=== PATIENT | male | born 1965 | race American Indian/Alaskan Native ===

== ENCOUNTER 2016-11-15 09:38 | Outpatient (CLI) | payer BC, OTHER ==
--- NOTE | 2016-11-15 11:54 | Magnetic Resonance Report ---
MRI LOWER EXTREMITY JOINT LEFT WITHOUT CONTRAST INDICATION: History of chronic left foot ulcer. COMPARISON: None similar. FINDINGS: Noncontrast multiplanar and multisequence MRI of the left foot demonstrates extensive abnormal signal throughout the fifth metatarsal as also at least the proximal phalanx of the fifth toe. Diffuse abnormal edema signal throughout the foot soft tissues also noted, greatest plantar. Dorsal foot soft tissue swelling/edema/fluid, most aggregated as on image 19, series 7 measuring approximately 3 cm. Mild abnormal edema signal in the first metatarsal head also noted. First MTP joint and few interphalangeal degenerative changes also suspected. Grossly intact included ankle. CONCLUSION: 1. Osteomyelitis involving the left fifth metatarsal, proximal phalanx of the fifth toe as also abnormal signal noted in the first metatarsal head, as detailed above. Please also correlate clinically with ulceration site. 2. Diffuse foot soft tissue swelling/edema with approximately 3 cm focal fluid/edema dorsally also seen, as described above. Thank you for the opportunity to participate in this patient's care.
== END 2016-11-15 09:39 | disposition home or self-care (01) ==
LOC: MRI 09:38
PROVIDERS: ATTEND Internal Medicine
DX: M86.9 Osteomyelitis, unspecified (principal); I10 Essential (primary) hypertension; E13.65 Other specified diabetes mellitus with hyperglycemia; Z86.31 Personal history of diabetic foot ulcer
CPT/HCPCS: 73721

== ENCOUNTER 2017-06-21 11:06 | Inpatient (IN) | payer OTHER, BC ==
[2017-06-21] MEDS ORDERED: ASPIRIN PO ONE (11:25)
[2017-06-21 11:59] LABS: Basophils % (Auto) 0.2 % (0.0-1.8); Hematocrit 40.5 % (35.5-45.6); Hemoglobin 13.6 gm/dl (11.8-15.2); Lymphocytes # (Auto) 0.7 K/mm3 (1.2-5.4); Lymphocytes % (Auto) 8.3 % (13.4-35.0); Mean Corpuscular HGB Conc 34 % (32-34); Mean Corpuscular Hemoglobin 30 pg (28-32); Mean Corpuscular Volume 89 fl (84-94); Monocytes # (Auto) 0.2 K/mm3 (0.0-0.8); Monocytes % (Auto) 1.7 % (0.0-7.3); Platelet Count 206 K/mm3 (140-440); Red Blood Count 4.57 M/mm3 (3.65-5.03); Red Cell Distribution Width 13.9 % (13.2-15.2)
[2017-06-21 12:18] LABS: BUN/Creatinine Ratio 15; Blood Urea Nitrogen 15 mg/dL (9-20); Calcium 9.3 mg/dL (8.4-10.2); Hemolysis Index 19
[2017-06-21] MEDS ORDERED: ZOFRAN IV ONE (12:19)
[2017-06-21] MEDS ORDERED: MORPHINE IV ONE (12:19)
[2017-06-21] MEDS ORDERED: NITRO-BID 2% TP ONE (12:19)
--- NOTE | 2017-06-21 12:25 | Emergency Department Report ---
HPI - General Chief Complaint: Chest Pain Time Seen by Provider: 06/21/17 12:11 - HPI HPI: Room 5 The patient is a 51-year-old male presenting with a chief complaint of chest pain. The patient states he awakened this morning at 03:00 with nausea and vomiting. The patient states at approximately 06:00 he began having intermittent substernal chest pain described as heaviness in addition to a constant midepigastric abdominal pain also described as a heaviness. Patient is to shortness of breath and diaphoresis with his chest pain. The patient currently gives his pain a score of 5/10. The patient states his last cardiac catheterization occurred 03/26/2016 Location: Chest Duration: [See above] Quality: Heaviness Severity: 5/10 Modifying factors: [see above] Context: [see above] Mode of transportation: [not driving] ED Past Medical Hx - Past Medical History Previous Medical History?: Yes Hx Hypertension: Yes Hx CVA: Yes Hx Heart Attack/AMI: Yes (2015) Hx Diabetes: Yes - Surgical History Past Surgical History?: Yes Hx Coronary Stent: Yes (26 March 2016) Additional Surgical History: tonsillectomy (long time ago) - Family History Family history: no significant - Social History Smoking Status: Never Smoker Substance Use Type: None - Medications Home Medications: Home Medications Medication Instructions Recorded Confirmed Last Taken Type Aspirin [Aspirin TAB] 325 mg PO QDAY #30 tablet 09/16/15 03/25/16 Unknown Rx Baclofen [Lioresal] 5 mg PO TID #45 tablet 09/16/15 03/25/16 Unknown Rx Clopidogrel [Plavix] 75 mg PO QDAY #30 tablet 09/16/15 03/25/16 Unknown Rx Glimepiride [Amaryl] 4 mg PO QDDIAB #30 tablet 09/16/15 03/25/16 Unknown Rx Insulin Glargine [Lantus VIAL] 20 units SUB-Q QHS 30 Days units 09/16/15 Unknown Rx Meclizine [Antivert] 25 mg PO Q8H #90 tablet 09/16/15 03/25/16 Unknown Rx Pantoprazole [Protonix TAB] 40 mg PO QDAY #30 tablet 09/16/15 03/25/16 Unknown Rx Simvastatin [Zocor TAB] 20 mg PO QHS #30 tablet 09/16/15 03/25/16 Unknown Rx amLODIPine [Norvasc] 10 mg PO QDAY #30 tablet 09/16/15 03/25/16 Unknown Rx Aspirin [Aspirin TAB] 325 mg PO QDAY #30 tablet 03/27/16 Unknown Rx Levofloxacin [Levaquin] 750 mg PO QDAY #3 tablet 03/27/16 Unknown Rx Lisinopril [Zestril TAB] 5 mg PO QDAY #30 tablet 03/27/16 Unknown Rx Metoprolol [Lopressor TAB] 25 mg PO BID #60 tablet 03/27/16 03/25/16 Unknown Rx chlorproMAZINE [Thorazine] 25 mg PO Q6H PRN #10 tablet 03/27/16 Unknown Rx ED Review of Systems ROS: Stated complaint: CHEST PAIN Other details as noted in HPI Constitutional: diaphoresis Respiratory: shortness of breath Cardiovascular: chest pain Gastrointestinal: abdominal pain, nausea, vomiting Physical Exam - Physical Exam Physical Exam: GENERAL: The patient is well-developed well-nourished male lying on stretcher appearing to be in mild discomfort. [] HEENT: Normocephalic. Atraumatic. Extraocular motions are intact. Patient has moist mucous membranes. NECK: Supple. Trachea midline CHEST/LUNGS: Clear to auscultation. There is no respiratory distress noted. HEART/CARDIOVASCULAR: Regular. There is no tachycardia. There is no gallop rub or murmur. ABDOMEN: Abdomen is soft. Patient has normal bowel sounds. There is no abdominal distention. SKIN: There is no rash. There is no edema. There is no diaphoresis. NEURO: The patient is awake, alert, and oriented. The patient is cooperative. The patient has residual left-sided weakness from previous CVA. The patient has normal speech MUSCULOSKELETAL: There is no evidence of acute injury. ED Medical Decision Making - Lab Data Result diagrams: 06/21/17 11:40 06/21/17 11:40 Laboratory Tests 06/21/17 06/21/17 11:40 11:40 WBC 8.6 RBC 4.57 Hgb 13.6 Hct 40.5 MCV 89 MCH 30 MCHC 34 RDW 13.9 Plt Count 206 Lymph % (Auto) 8.3 L [place] % (Auto) 1.7 Eos % (Auto) 0.0 Baso % (Auto) 0.2 Lymph # 0.7 L [place] # 0.2 Eos # 0.0 Baso # 0.0 Seg Neutrophils % 89.8 H Seg Neutrophils # 7.7 Sodium 136 L Potassium 4.4 Chloride 92.1 L Carbon Dioxide 22 Anion Gap 26 BUN 15 Creatinine 1.0 Estimated GFR > 60 BUN/Creatinine Ratio 15 Glucose 320 H Calcium 9.3 Troponin T 0.015 - EKG Data -: EKG Interpreted by Me EKG shows normal: sinus rhythm Rate: normal - EKG Data When compared to previous EKG there are: no significant change Interpretation: unchanged when compared t (07/27/2015) - Radiology Data Radiology results: image reviewed (chest x-ray) interpreted by me: Chest [id number] right lower lobe atelectasis. No pneumothorax - Differential Diagnosis ACS, GERD, pericarditis Critical care attestation.: If time is entered above; I have spent that time in minutes in the direct care of this critically ill patient, excluding procedure time. ED Disposition Clinical Impression: Chest pain Disposition: DC-09 OP ADMIT IP TO THIS HOSP Is pt being admited?: Yes Does the pt Need Aspirin: Yes Condition: Fair Instructions: Chest Pain (ED) Referrals: PRIMARY CARE, [Primary Care Provider] - 3-5 Days Time of Disposition: 12:50 (hospitalist paged)
--- NOTE | 2017-06-21 13:40 | XRay Report ---
AP CHEST: HISTORY: chest pain Mild cardiomegaly and trace left pleural effusion are suspected. The lungs are clear otherwise. No consolidation or pneumothorax. Normal bony structures. IMPRESSION: Mild cardiomegaly and trace left pleural effusion.
[2017-06-21] MEDS ORDERED: ZOFRAN IV PRN (14:01)
[2017-06-21] MEDS ORDERED: PROVENTIL IH PRN (14:01)
[2017-06-21] MEDS ORDERED: DULCOLAX PR PRN (14:01)
[2017-06-21] MEDS ORDERED: MORPHINE IV PRN (14:01)
[2017-06-21] MEDS ORDERED: MILK OF MAGNESIA PO PRN (14:01)
[2017-06-21] MEDS ORDERED: TYLENOL PO PRN (14:01)
[2017-06-21] MEDS ORDERED: SODIUM CHLORIDE FLUSH SYRINGE 10 ML IV PRN (14:01)
[2017-06-21 14:35] LABS: Basophils % (Auto) 0.3 % (0.0-1.8); Hemoglobin 13.4 gm/dl (11.8-15.2); Lymphocytes # (Auto) 0.6 K/mm3 (1.2-5.4); Lymphocytes % (Auto) 7.8 % (13.4-35.0); Mean Corpuscular HGB Conc 34 % (32-34); Mean Corpuscular Hemoglobin 30 pg (28-32); Mean Corpuscular Volume 88 fl (84-94); Monocytes # (Auto) 0.2 K/mm3 (0.0-0.8); Platelet Count 191 K/mm3 (140-440); Red Blood Count 4.45 M/mm3 (3.65-5.03); Red Cell Distribution Width 13.3 % (13.2-15.2)
[2017-06-21] MEDS ORDERED: ASPIRIN PR ONE (15:00)
[2017-06-21 15:30] LABS: BUN/Creatinine Ratio 15; Blood Urea Nitrogen 15 mg/dL (9-20); Calcium 9.1 mg/dL (8.4-10.2); Hemolysis Index 0
--- NOTE | 2017-06-21 17:25 | History and Physical Report ---
History of Present Illness Date of admission: 06/21/17 14:01 Chief complaint: My chest hurts History of present illness: 51 YO Male with HTN, CVA, LA, DM, Metabolic Syndrome, presents to ED for evaluation. Pt states that he has experienced an acute onset of pain in his chest that awakened him from his sleep at 0300 Hrs. Pt states that pain was 5/10, crushing, nonradiating, substernal, not worsened with exertion, or relieved with rest. Pain is associated with diaphoresis, shortness of breath, as well as with nausea and vomiting. No reports of fever, chills, Palpitations, syncope, hemoptysis, prolonged immobility/travel, calf pain, individual/family history of DVT/PE, productive cough, or recent ill contacts. Pt seen and evaluated in ED and found to have symptoms of ACS. Cardiology consulted, pt admitted to telemetry. Past History Past Medical History: acute LA, CAD, diabetes, hypertension, other (obesity, metabolic syndrome) Past Surgical History: tonsillectomy, Other (stent placement) Social history: , lives with family. denies: smoking, alcohol abuse, prescription drug abuse Family history: hypertension Medications and Allergies Allergies Allergy/AdvReac Type Severity Reaction Status Date / Time vitamin K2 Allergy Intermediate Swelling Verified 03/21/16 18:50 shellfish derived Allergy Shortness Verified 08/19/15 22:46 of Breath Home Medications Medication Instructions Recorded Confirmed Last Taken Type Baclofen [Lioresal] 5 mg PO TID #45 tablet 09/16/15 06/21/17 06/21/17 Rx Clopidogrel [Plavix] 75 mg PO QDAY #30 tablet 09/16/15 06/21/17 06/21/17 Rx Glimepiride [Amaryl] 4 mg PO QDDIAB #30 tablet 09/16/15 06/21/17 06/21/17 Rx amLODIPine [Norvasc] 10 mg PO QDAY #30 tablet 09/16/15 06/21/17 06/21/17 Rx Aspirin [Aspirin TAB] 325 mg PO QDAY #30 tablet 03/27/16 06/21/17 06/21/17 Rx Metoprolol [Lopressor TAB] 25 mg PO BID #60 tablet 03/27/16 06/21/17 06/21/17 Rx Insulin Glargine [Lantus VIAL] 25 units SUB-Q QHS 06/21/17 06/21/17 06/20/17 History Valsartan/Hydrochlorothiazide 1 each PO DAILY 06/21/17 06/21/17 06/21/17 History [Valsartan-Hctz 160-12.5 mg Tab] cloNIDine [Catapres] 0.1 mg PO TID 06/21/17 06/21/17 06/21/17 History Active Meds: Active Medications Acetaminophen (Tylenol) 650 mg PO Q4H PRN PRN Reason: Pain MILD(1-3)/Fever >100.5/VACA Albuterol (Proventil) 2.5 mg IH Q4HRT PRN PRN Reason: Shortness Of Breath Amlodipine Besylate (Norvasc) 10 mg PO QDAY [facility] Aspirin (Aspirin) 325 mg PO QDAY [facility] Baclofen (Lioresal) 5 mg PO TID [facility] Bisacodyl (Dulcolax) 10 mg [place] QDAY PRN PRN Reason: Constipation unrelieved by [facility] Clonidine HCl (Catapres) 0.1 mg PO TID [facility] Clopidogrel Bisulfate (Plavix) 75 mg PO QDAY [facility] Famotidine (Pepcid) 10 mg PO BID [facility] Hydrochlorothiazide (Hctz) 12.5 mg PO QDAY [facility] Magnesium Hydroxide (Milk Of Magnesia) 30 ml PO Q4H PRN PRN Reason: Constipation Metoprolol Tartrate (Lopressor) 25 mg PO BID [facility] Morphine Sulfate (Morphine) 2 mg IV Q4H PRN PRN Reason: Pain, Moderate (4-6) Ondansetron HCl (Zofran) 4 mg IV Q8H PRN PRN Reason: N/V unrelieved by Reglan Sodium Chloride (Sodium Chloride Flush Syringe 10 Ml) 10 ml IV PRN PRN PRN Reason: LINE FLUSH Valsartan (Diovan) 160 mg PO QDAY [facility] Review of Systems Constitutional: no weight loss, no weight gain, no fever, no chills Ears, nose, mouth and throat: no ear pain, no ear discharge, no tinnitis, no decreased hearing, no nose pain Cardiovascular: chest pain, shortness of breath, no orthopnea, no palpitations, no rapid/irregular heart beat, no syncope Respiratory: shortness of breath, no cough, no cough with sputum, no excessive sputum, no hemoptysis Gastrointestinal: no nausea, no vomiting Genitourinary Male: no hematuria, no flank pain, no discharge, no urinary frequency, no urinary hesitancy, no nocturia Rectal: no pain, no incontinence, no bleeding Musculoskeletal: no neck stiffness, no neck pain, no shooting arm pain, no arm numbness/tingling, no low back pain, no shooting leg pain, no leg numbness/ tingling Integumentary: no rash, no redness, no sores, no wounds, no jaundice, no boils, no growths, no bullae, no lesions Neurological: no transient paralysis, no paralysis, no weakness, no parathesias , no numbness, no tingling, no seizures, no syncope, no headaches, no migraines , no tic, no convulsions Psychiatric: no anxiety, no memory loss, no change in sleep habits, no sleep disturbances, no insomnia, no hypersomnia, no change in appetite, no change in libido, no suicidal ideation Endocrine: no cold intolerance, no heat intolerance, no polyphagia, no excessive thirst, no polydipsia, no polyuria, no nocturia, no excessive sweating Hematologic/Lymphatic: no easy bruising, no easy bleeding, no lymphadenopathy, no lymphedema Allergic/Immunologic: no urticaria, no allergic rhinitis, no wheezing, no persistent infections, no anaphylaxis Exam - Constitutional Vitals: Temp Pulse Resp BP Pulse Ox 98.8 F 80 18 119/76 100 06/21/17 12:38 06/21/17 14:59 06/21/17 14:59 06/21/17 14:59 06/21/17 14:59 General appearance: Present: mild distress, obese - EENT Eyes: Present: PERRL ENT: hearing intact, clear oral mucosa - Neck Neck: Present: supple, normal ROM - Respiratory Respiratory effort: normal Respiratory: bilateral: CTA - Cardiovascular Heart Sounds: Present: S1 & S2. Absent: rub, click - Extremities Extremities: pulses symmetrical, No edema - Abdominal General gastrointestinal: Present: soft, non-tender, non-distended, normal bowel sounds Male genitourinary: Present: normal - Integumentary Integumentary: Present: clear, warm, dry - Musculoskeletal Musculoskeletal: gait normal, strength equal bilaterally - Psychiatric Psychiatric: appropriate mood/affect, intact judgment & insight - Neurologic Neurologic: CNII-XII intact, moves all extremities Results - Labs CBC & Chem 7: 06/21/17 14:16 06/21/17 14:16 Labs: Abnormal lab results 06/21/17 06/21/17 06/21/17 Range/Units 11:40 11:40 14:16 Lymph % (Auto) 8.3 L 7.8 L (13.4-35.0) % Lymph # 0.7 L 0.6 L (1.2-5.4) K/mm3 Seg Neutrophils % 89.8 H 89.9 H (40.0-70.0) % D-Dimer (0-234) ng/mlDDU Sodium 136 L (137-145) mmol/L Chloride 92.1 L (98-107) mmol/L Glucose 320 H (75-100) mg/dL 06/21/17 06/21/17 Range/Units 14:16 14:16 Lymph % (Auto) (13.4-35.0) % Lymph # (1.2-5.4) K/mm3 Seg Neutrophils % (40.0-70.0) % D-Dimer 320.54 H (0-234) ng/mlDDU Sodium 135 L (137-145) mmol/L Chloride 94.5 L (98-107) mmol/L Glucose 326 H (75-100) mg/dL Assessment and Plan - Patient Problems (1) ACS (acute coronary syndrome) Current Visit: Yes Status: Acute Plan to address problem: Admit to telemetry, serial cardiac enzymes, ekg, d dimer, echo, stress test, cardiology consulted, morphine, supplemental oxygen, nitro, aspirin, (2) Metabolic syndrome Current Visit: Yes Status: Acute Plan to address problem: low cholesterol diet, lipid panel, (3) Diabetes mellitus with hyperglycemia Current Visit: No Status: Chronic Qualifiers: Diabetes mellitus type: type 1 Qualified Code(s): E10.65 - Type 1 diabetes mellitus with hyperglycemia Plan to address problem: ADA diet, insulin, accu check (4) Hypertension Current Visit: No Status: Chronic Qualifiers: Hypertension type: essential hypertension Qualified Code(s): I10 - Essential (primary) hypertension Plan to address problem: Monitor bp q shift, IV hydralazine prn, continue medical management. (5) DVT prophylaxis Current Visit: Yes Status: Acute
[2017-06-21] MEDS: LIORESAL PO SCH (20:55)
[2017-06-21] MEDS: CATAPRES PO SCH (21:05)
--- NOTE | 2017-06-21 21:23 | Cat Scan Report ---
FINAL REPORT PROCEDURE: CT ANGIO CHEST TECHNIQUE: Computerized tomographic angiography of the chest was performed after the IV injection of iodinated nonionic contrast including image processing. The image data was postprocessed using 2-dimensional multiplanar reformatted (MPR) and 3-dimensional (MIP and/or volume rendered) techniques. HISTORY: dypsnea COMPARISON: No prior studies are available for comparison. FINDINGS: Heart and pericardium: Normal. Thoracic aorta: More by weak grade dissection protocol technique study. No obvious dissection seen. Pulmonary vasculature: Weak opacification of the pulmonary arteries with attenuation value of 105 HU compared to aorta at 151 HU. No definitive evidence of large central saddle embolus. No definite evidence of main pulmonary artery emboli. There is attenuation of the pulmonary arteries distal to the main pulmonary arteries bilaterally rendering inconclusive to exclude or incapable to preclude small to medium sized PE in those areas. Lymph nodes: Scattered mildly prominent lymph nodes. Lungs: Motion artifact. Patchy atelectasis. Pleural space: No effusion, thickening, or pneumothorax. Musculoskeletal structures: No significant abnormality. Upper abdominal structures: No significant abnormality. IMPRESSION: No large or central PE on limited study. Poor IV contrast bolus intensity timing in the pulmonary arteries. Details above. Followup V/Q scan or improved PE technique study advised as warranted. Minimal atelectasis.
[2017-06-21] MEDS: LOPRESSOR PO SCH (22:52)
[2017-06-21] MEDS: PEPCID PO SCH (22:53)
[2017-06-22] MEDS: LIORESAL PO SCH ×2 (08:00→14:07)
[2017-06-22] MEDS: CATAPRES PO SCH ×2 (08:00→14:08)
[2017-06-22] MEDS ORDERED: D50W (25GM) Syringe IV PRN (08:44)
[2017-06-22] MEDS: NOVOLOG SUB-Q SCH ×2 (09:15→13:21)
[2017-06-22] MEDS ORDERED: LEXISCAN IV ONE ×3 (09:36→10:10)
[2017-06-22] MEDS ORDERED: NORVASC PO SCH (10:00)
[2017-06-22] MEDS ORDERED: HCTZ PO SCH (10:00)
[2017-06-22] MEDS ORDERED: DIOVAN PO SCH (10:00)
[2017-06-22] MEDS ORDERED: PLAVIX PO SCH (10:00)
[2017-06-22] MEDS ORDERED: ASPIRIN PO SCH (10:00)
[2017-06-22] MEDS ORDERED: NON-FORMULARY (Valsartan/Hydrochlorothiazide [Valsartan-Hctz 160-12.5 Mg Tab] 1 EACH) PO SCH (10:00)
--- NOTE | 2017-06-22 11:41 | Consultation ---
History of Present Illness Consult date: 06/22/17 Consult reason: chest pain History of present illness: 51 year old male with the past medical history of coronary artery disease presenting with intractable nausea, vomiting and secondary retrosternal chest and epigastric pain. Patient was completely asymptomatic before he started experiencing retching and intractable vomiting. It is only after multiple episodes of emesis that he started feeling the chest pain. ECG is showing no interval changes and troponin x 2 are negative. Past History Past Medical History: acute MN, CAD, diabetes, hypertension, other (obesity, metabolic syndrome) Past Surgical History: tonsillectomy, Other (stent placement) Social history: , lives with family. denies: smoking, alcohol abuse, prescription drug abuse Family history: hypertension Medications and Allergies Allergies Allergy/AdvReac Type Severity Reaction Status Date / Time vitamin K2 Allergy Intermediate Swelling Verified 03/21/16 18:50 shellfish derived Allergy Shortness Verified 08/19/15 22:46 of Breath Home Medications Medication Instructions Recorded Confirmed Last Taken Type Baclofen [Lioresal] 5 mg PO TID #45 tablet 09/16/15 06/21/17 06/21/17 Rx Clopidogrel [Plavix] 75 mg PO QDAY #30 tablet 09/16/15 06/21/17 06/21/17 Rx Glimepiride [Amaryl] 4 mg PO QDDIAB #30 tablet 09/16/15 06/21/17 06/21/17 Rx amLODIPine [Norvasc] 10 mg PO QDAY #30 tablet 09/16/15 06/21/17 06/21/17 Rx Aspirin [Aspirin TAB] 325 mg PO QDAY #30 tablet 03/27/16 06/21/17 06/21/17 Rx Metoprolol [Lopressor TAB] 25 mg PO BID #60 tablet 03/27/16 06/21/17 06/21/17 Rx Insulin Glargine [Lantus VIAL] 25 units SUB-Q QHS 06/21/17 06/21/17 06/20/17 History Valsartan/Hydrochlorothiazide 1 each PO DAILY 06/21/17 06/21/17 06/21/17 History [Valsartan-Hctz 160-12.5 mg Tab] cloNIDine [Catapres] 0.1 mg PO TID 06/21/17 06/21/17 06/21/17 History Active Meds: Active Medications Acetaminophen (Tylenol) 650 mg PO Q4H PRN PRN Reason: Pain MILD(1-3)/Fever >100.5/VACA Albuterol (Proventil) 2.5 mg IH Q4HRT PRN PRN Reason: Shortness Of Breath Amlodipine Besylate (Norvasc) 10 mg PO QDAY [facility] Aspirin (Aspirin) 325 mg PO QDAY [facility] Baclofen (Lioresal) 5 mg PO TID [facility] Last Admin: 06/21/17 20:55 Dose: 5 mg Bisacodyl (Dulcolax) 10 mg CA QDAY PRN PRN Reason: Constipation unrelieved by MOM Clonidine HCl (Catapres) 0.1 mg PO TID [facility] Last Admin: 06/21/17 21:05 Dose: Not Given Clopidogrel Bisulfate (Plavix) 75 mg PO QDAY [facility] Dextrose (D50w (25gm) Syringe) 50 ml IV PRN PRN PRN Reason: Hypoglycemia Famotidine (Pepcid) 10 mg PO BID [facility] Last Admin: 06/21/17 22:53 Dose: 10 mg Hydrochlorothiazide (Hctz) 12.5 mg PO QDAY [facility] Insulin Aspart (Novolog) 0 units SUB-Q Q6HR [facility]; Protocol Last Admin: 06/22/17 09:15 Dose: 2 units Magnesium Hydroxide (Milk Of Magnesia) 30 ml PO Q4H PRN PRN Reason: Constipation Metoprolol Tartrate (Lopressor) 25 mg PO BID [facility] Last Admin: 06/21/17 22:52 Dose: Not Given Morphine Sulfate (Morphine) 2 mg IV Q4H PRN PRN Reason: Pain, Moderate (4-6) Ondansetron HCl (Zofran) 4 mg IV Q8H PRN PRN Reason: N/V unrelieved by Reglan Sodium Chloride (Sodium Chloride Flush Syringe 10 Ml) 10 ml IV PRN PRN PRN Reason: LINE FLUSH Valsartan (Diovan) 160 mg PO QDAY [facility] Review of Systems All systems: negative Physical Examination Vital Signs Temp Pulse Resp BP Pulse Ox 98.8 F 98 H 18 148/76 100 06/21/17 12:38 06/21/17 12:38 06/21/17 12:38 06/21/17 12:38 02/27/18 12:38 General appearance: no acute distress HEENT: Positive: PERRL Neck: Positive: neck supple Cardiac: Positive: Reg Rate and Rhythm Lungs: Positive: Normal Exam Neuro: Positive: Grossly Intact Abdomen: Positive: Soft Results 06/21/17 14:16 06/21/17 14:16 Cardiac Enzymes 06/21/17 06/21/17 06/21/17 Range/Units 11:40 11:40 14:16 WBC 8.6 7.6 (4.5-11.0) K/mm3 RBC 4.57 4.45 (3.65-5.03) M/mm3 Hgb 13.6 13.4 (11.8-15.2) gm/dl Hct 40.5 39.0 (35.5-45.6) % MCV 89 88 (84-94) fl MCH 30 30 (28-32) pg MCHC 34 34 (32-34) % RDW 13.9 13.3 (13.2-15.2) % Plt Count 206 191 (140-440) K/mm3 Lymph % (Auto) 8.3 L 7.8 L (13.4-35.0) % Carlton % (Auto) 1.7 2.0 (0.0-7.3) % Eos % (Auto) 0.0 0.0 (0.0-4.3) % Baso % (Auto) 0.2 0.3 (0.0-1.8) % Lymph # 0.7 L 0.6 L (1.2-5.4) K/mm3 Carlton # 0.2 0.2 (0.0-0.8) K/mm3 Eos # 0.0 0.0 (0.0-0.4) K/mm3 Baso # 0.0 0.0 (0.0-0.1) K/mm3 Seg Neutrophils % 89.8 H 89.9 H (40.0-70.0) % Seg Neutrophils # 7.7 6.8 (1.8-7.7) K/mm3 D-Dimer (0-234) ng/mlDDU Sodium 136 L (137-145) mmol/L Potassium 4.4 (3.6-5.0) mmol/L Chloride 92.1 L (98-107) mmol/L Carbon Dioxide 22 (22-30) mmol/L Anion Gap 26 mmol/L BUN 15 (9-20) mg/dL Creatinine 1.0 (0.8-1.5) mg/dL Estimated GFR > 60 ml/min BUN/Creatinine Ratio 15 % Glucose 320 H (75-100) mg/dL POC Glucose (70-105) Calcium 9.3 (8.4-10.2) mg/dL Troponin T 0.015 (0.00-0.029) ng/mL 06/21/17 06/21/17 06/21/17 Range/Units 14:16 14:16 19:52 WBC (4.5-11.0) K/mm3 RBC (3.65-5.03) M/mm3 Hgb (11.8-15.2) gm/dl Hct (35.5-45.6) % MCV (84-94) fl MCH (28-32) pg MCHC (32-34) % RDW (13.2-15.2) % Plt Count (140-440) K/mm3 Lymph % (Auto) (13.4-35.0) % Carlton % (Auto) (0.0-7.3) % Eos % (Auto) (0.0-4.3) % Baso % (Auto) (0.0-1.8) % Lymph # (1.2-5.4) K/mm3 Carlton # (0.0-0.8) K/mm3 Eos # (0.0-0.4) K/mm3 Baso # (0.0-0.1) K/mm3 Seg Neutrophils % (40.0-70.0) % Seg Neutrophils # (1.8-7.7) K/mm3 D-Dimer 320.54 H (0-234) ng/mlDDU Sodium 135 L (137-145) mmol/L Potassium 4.6 (3.6-5.0) mmol/L Chloride 94.5 L (98-107) mmol/L Carbon Dioxide 26 (22-30) mmol/L Anion Gap 19 mmol/L BUN 15 (9-20) mg/dL Creatinine 1.0 (0.8-1.5) mg/dL Estimated GFR > 60 ml/min BUN/Creatinine Ratio 15 % Glucose 326 H (75-100) mg/dL POC Glucose (70-105) Calcium 9.1 (8.4-10.2) mg/dL Troponin T 0.023 (0.00-0.029) ng/mL 06/22/17 Range/Units 07:25 WBC (4.5-11.0) K/mm3 RBC (3.65-5.03) M/mm3 Hgb (11.8-15.2) gm/dl Hct (35.5-45.6) % MCV (84-94) fl MCH (28-32) pg MCHC (32-34) % RDW (13.2-15.2) % Plt Count (140-440) K/mm3 Lymph % (Auto) (13.4-35.0) % Carlton % (Auto) (0.0-7.3) % Eos % (Auto) (0.0-4.3) % Baso % (Auto) (0.0-1.8) % Lymph # (1.2-5.4) K/mm3 Carlton # (0.0-0.8) K/mm3 Eos # (0.0-0.4) K/mm3 Baso # (0.0-0.1) K/mm3 Seg Neutrophils % (40.0-70.0) % Seg Neutrophils # (1.8-7.7) K/mm3 D-Dimer (0-234) ng/mlDDU Sodium (137-145) mmol/L Potassium (3.6-5.0) mmol/L Chloride (98-107) mmol/L Carbon Dioxide (22-30) mmol/L Anion Gap mmol/L BUN (9-20) mg/dL Creatinine (0.8-1.5) mg/dL Estimated GFR ml/min BUN/Creatinine Ratio % Glucose (75-100) mg/dL POC Glucose 228 H (70-105) Calcium (8.4-10.2) mg/dL Troponin T (0.00-0.029) ng/mL CBC 06/21/17 06/21/17 Range/Units 11:40 14:16 WBC 8.6 7.6 (4.5-11.0) K/mm3 RBC 4.57 4.45 (3.65-5.03) M/mm3 Hgb 13.6 13.4 (11.8-15.2) gm/dl Hct 40.5 39.0 (35.5-45.6) % Plt Count 206 191 (140-440) K/mm3 Lymph # 0.7 L 0.6 L (1.2-5.4) K/mm3 Carlton # 0.2 0.2 (0.0-0.8) K/mm3 Eos # 0.0 0.0 (0.0-0.4) K/mm3 Baso # 0.0 0.0 (0.0-0.1) K/mm3 Comprehensive Metabolic Panel 06/21/17 06/21/17 Range/Units 11:40 14:16 Sodium 136 L 135 L (137-145) mmol/L Potassium 4.4 4.6 (3.6-5.0) mmol/L Chloride 92.1 L 94.5 L (98-107) mmol/L Carbon Dioxide 22 26 (22-30) mmol/L BUN 15 15 (9-20) mg/dL Creatinine 1.0 1.0 (0.8-1.5) mg/dL Glucose 320 H 326 H (75-100) mg/dL Calcium 9.3 9.1 (8.4-10.2) mg/dL - EKG Interpretation EKG: sinus rhythm EKG interpretations - Telemetry EKG Rhythm: Sinus Rhythm Assessment and Plan Atypical chest pain after intractable nausea and vomiting No ECG changes when compared to previous Negative troponin x 2 Small reversible apical and mid anteroseptal andsmall reversible basal inferolateral wall defects, as well as, a small fixed apical inferior defect on MPI CAD s/p PCI to proximal LAD and mid RCA 03/2016 on asa and plavix Post PCI, patient did have residual borderline stenosis in the mid LAD along with small diseased diagonal arteries; as well as small PDA and PLVB Ischemic cardiomyopathy, LVEF 40% by MPI History of CVA Systemic Hypertension Type II DM Recommendations: Given the atypical presentation of his chest pain, we do not anticipate further invasive cardiac work-up. Continue current management with DAPT, BB, ACEi Follow-up with referring port captain Work-up for intractable nausea and vomiting per primary team
[2017-06-22 13:06] VITALS: BP 164/91
[2017-06-22] MEDS: PEPCID PO SCH (13:17)
[2017-06-22] MEDS: LOPRESSOR PO SCH (13:20)
--- NOTE | 2017-06-22 16:36 | Discharge Summary ---
Providers - Providers Date of Admission: 06/21/17 14:01 Date of discharge: 06/22/17 Attending physician: YVON NICOLAS 06/21/17 Consult to Cardiac Rehabilitation [CONS] Routine Reason For Exam: Phase I 06/21/17 14:01 Consult to Cardiology [CONS] Routine Consulting Provider: ELIU JULIEN Reason For Exam: acs Primary care physician: LIFE SUPPORT TECHNICIAN Hospitalization Condition: Stable Hospital course: Patient is 51 yo man with history of CAD s/p 2 stents, IDDM on Lantus 25units at bedtime, hypertension, white coat syndrome, CVA with left side hemiparesis and left foot dm foot ulcer with cast in place who presented with intractable n/ v followed by chest pains. He underwent stress test. ECHO with est EF 45%-50%, abn diastolic filling and CTA chest negative for PE. He ate beans from the can which lead to the gastritis and now it has resolved as well as the chest pains. -Chest pains, atypical most likely acute gastritis -Accelerated hypertension from White coat syndrome: restarted home medications -IDDM -Intractable nausea and vomiting resolved. per Cardiology, Dr. Espinal: "Atypical chest pain after intractable nausea and vomiting No ECG changes when compared to previous Negative troponin x 2 Small reversible apical and mid anteroseptal andsmall reversible basal inferolateral wall defects, as well as, a small fixed apical inferior defect on MPI CAD s/p PCI to proximal LAD and mid RCA 03/2016 on asa and plavix Post PCI, patient did have residual borderline stenosis in the mid LAD along with small diseased diagonal arteries; as well as small PDA and PLVB Ischemic cardiomyopathy, LVEF 40% by MPI History of CVA Systemic Hypertension Type II DM Recommendations: Given the atypical presentation of his chest pain, we do not anticipate further invasive cardiac work-up. Continue current management with DAPT, BB, ACEi Follow-up with referring gas distribution supervisor Work-up for intractable nausea and vomiting per primary team" Disposition: DC- TO HOME OR SELFCARE Time spent for discharge: 35 minutes Core Measure Documentation - Palliative Care Palliative Care/ Comfort Measures: Not Applicable - Core Measures Any of the following diagnoses?: none - VTE Discharge Requirements Deep Vein Thrombosis/Pulmonary Embolism Present on Admission: No Has pt received <5 days of overlap therapy or INR<2.0: No Anticoagulant overlap therapy prescribed at discharge: No Contraindication No Overlap Therapy order at DC: Not Indicated Exam - Constitutional Vitals: Temp Pulse Resp BP Pulse Ox 98.7 F 99 H 20 164/91 98 06/22/17 13:04 06/22/17 14:08 06/22/17 13:04 06/22/17 14:08 06/22/17 13:04 General appearance: Present: no acute distress - EENT Eyes: Present: PERRL, EOM intact ENT: hearing intact, clear oral mucosa, dentition normal - Neck Neck: Present: supple, normal ROM - Respiratory Respiratory: bilateral: CTA - Cardiovascular Rhythm: regular Heart Sounds: Present: S1 & S2 - Extremities Extremities: no ischemia, pulses intact Peripheral Pulses: within normal limits - Abdominal General gastrointestinal: Present: soft, non-tender, non-distended, normal bowel sounds - Musculoskeletal Musculoskeletal: left sided weakness - Psychiatric Psychiatric: appropriate mood/affect, intact judgment & insight, memory intact, cooperative - Neurologic Neurologic: CNII-XII intact, focal deficits (atrophic left arm) Plan Activity: fall precautions Diet: low salt, diabetic Follow up with: PRIMARY CARE, [Primary Care Provider] - 3-5 Days
--- NOTE | 2017-06-23 04:47 | Treadmill Report ---
INDICATION: Chest pain. ORDERING PHYSICIAN: Dr. Alvarez. FINDINGS: There was evidence of motion detected on the stress imaging scan. Motion correction was applied. There is evidence of a small mildly reversible apical and mid anteroseptal wall defect. There is also evidence of a small mildly reversible basal inferolateral wall defect. There is evidence of a small fixed apical inferior wall defect. There is moderate global left ventricular hypokinesis with an ejection fraction measured at 40%. IMPRESSION: 1. Small reversible apical and mid anteroseptal and basal inferolateral wall defect. 2. Fixed apical inferior wall defect. 3. Global left ventricular hypokinesis with an ejection fraction measured at 40%. 4. This is an intermediate risk myocardial perfusion scan associated with an adverse cardiovascular events of 1-3% in the next 1 year. 5. Clinical correlation is recommended. JOB# [id number] MARYURI/JONH
== END 2017-06-22 17:49 | disposition home or self-care (01) | DRG 392 ==
LOC: ED 11:06 → 4A 14:01
PROVIDERS: ADMIT Internal Medicine; ATTEND Internal Medicine
DX: K29.00 Acute gastritis without bleeding (principal); I24.9 Acute ischemic heart disease, unspecified; I69.954 Hemiplegia and hemiparesis following unspecified cerebrovascular disease affecting left non-dominant side; I25.2 Old myocardial infarction; E11.65 Type 2 diabetes mellitus with hyperglycemia; E66.9 Obesity, unspecified; I25.10 Atherosclerotic heart disease of native coronary artery without angina pectoris; I25.5 Ischemic cardiomyopathy; I10 Essential (primary) hypertension; E88.81 Metabolic syndrome and other insulin resistance; Z82.49 Family history of ischemic heart disease and other diseases of the circulatory system; Z88.8 Allergy status to other drugs, medicaments and biological substances; Z91.013 Allergy to seafood; Z68.36 Body mass index [BMI] 36.0-36.9, adult; Z79.4 Long term (current) use of insulin
CPT/HCPCS: 36415; 71045; 71275; 78452; 80048; 82962; 84484; 85025; 85379; 93005; 93010; 93017; 93306; A9502; J2270; J2405; J2785; Q9967

== ENCOUNTER 2018-01-12 20:52 | Emergency (ER) | payer BC, OTHER ==
[2018-01-12 21:38] LABS: Basophils # (Auto) 0.1 K/mm3 (0.0-0.1); Basophils % (Auto) 0.8 % (0.0-1.8); Eosinophils % (Auto) 0.2 % (0.0-4.3); Hematocrit 41.8 % (35.5-45.6); Hemoglobin 14.3 gm/dl (11.8-15.2); Lymphocytes # (Auto) 1.3 K/mm3 (1.2-5.4); Lymphocytes % (Auto) 13.1 % (13.4-35.0); Mean Corpuscular HGB Conc 34 % (32-34); Mean Corpuscular Hemoglobin 31 pg (28-32); Mean Corpuscular Volume 89 fl (84-94); Monocytes # (Auto) 0.5 K/mm3 (0.0-0.8); Monocytes % (Auto) 4.8 % (0.0-7.3); Platelet Count 221 K/mm3 (140-440); Red Cell Distribution Width 13.6 % (13.2-15.2)
[2018-01-12 22:06] LABS: Albumin 3.8 g/dL (3.9-5); Calcium 9.4 mg/dL (8.4-10.2)
[2018-01-12 22:41] LABS: Bilirubin,Urine NEG (Negative); Blood,Urine MOD (Negative); Color,Urine Yellow (Yellow); Mucus,Urine FEW /HPF; Urobilinogen,Urine < 2.0 mg/dL (<2.0); WBC,Urine < 1.0 /HPF (0.0-6.0)
[2018-01-13] MEDS ORDERED: HumuLIN R IV ONE (01:07)
[2018-01-13] MEDS ORDERED: NACL 0.9% 500 ML 500 ML IV ONE (01:07)
[2018-01-13] MEDS ORDERED: REGLAN IV ONE (01:07)
--- NOTE | 2018-01-13 01:08 | Emergency Department Report ---
ED General Adult HPI - General Chief complaint: Abdominal Pain Stated complaint: ABDOMINAL PAIN Time Seen by Provider: 01/13/18 00:27 Source: patient, family, RN notes reviewed, old records reviewed Mode of arrival: Wheelchair Limitations: Physical Limitation - History of Present Illness Initial comments: This is a 52-year-old gentleman. The patient is not known to this provider previously. Past medical history includes hypertension, diabetes, high cholesterol, stroke, left-sided hemiparesis, history of hiccups, and chronic wound on the left lower extremity. The patient presents today with complaint of hiccups and nausea and vomiting for the past 4 days. He had lower abdominal pain but this has since resolved. His hiccups are intermittent over the past 4 days, and did not appear to have exacerbating or relieving factors. He's had a few episodes of nonbloody, nonbilious emesis. His last episode of emesis was 12 hours ago. He reports having had a heart attack in the past, and reports that at that time he was having chest pain. He reports his symptoms today do not feel like his prior heart attack. He denies headache, neck pain, chest pain, currently denies abdominal pain, and denies irritative/obstructive urinary symptoms. -: Gradual Location: abdomen (now resolved) Severity scale (0 -10): 1 Consistency: now resolved Improves with: none Worsens with: none Associated Symptoms: nausea/vomiting, weakness (chronic weakness in the left lower extremity left upper extremity). denies: confusion, chest pain, cough, diaphoresis, fever/chills, headaches, loss of appetite, malaise, rash, seizure, shortness of breath, syncope - Related Data Home Medications Medication Instructions Recorded Confirmed Last Taken Insulin Glargine [Lantus VIAL] 25 units SUB-Q QHS 06/21/17 06/21/17 06/20/17 Valsartan/Hydrochlorothiazide 1 each PO DAILY 06/21/17 06/21/17 06/21/17 [Valsartan-Hctz 160-12.5 mg Tab] cloNIDine [Catapres] 0.1 mg PO TID 06/21/17 06/21/17 06/21/17 Previous Rx's Medication Instructions Recorded Last Taken Type Baclofen [Lioresal] 5 mg PO TID #45 tablet 09/16/15 06/21/17 Rx Clopidogrel [Plavix] 75 mg PO QDAY #30 tablet 09/16/15 06/21/17 Rx Glimepiride [Amaryl] 4 mg PO QDDIAB #30 tablet 09/16/15 06/21/17 Rx amLODIPine [Norvasc] 10 mg PO QDAY #30 tablet 09/16/15 06/21/17 Rx Aspirin [Aspirin TAB] 325 mg PO QDAY #30 tablet 03/27/16 06/21/17 Rx Metoprolol [Lopressor TAB] 25 mg PO BID #60 tablet 03/27/16 06/21/17 Rx Metoclopramide [Reglan] 10 mg PO QID PRN #30 tab 01/13/18 Unknown Rx Allergies Allergy/AdvReac Type Severity Reaction Status Date / Time vitamin K2 Allergy Intermediate Swelling Verified 03/21/16 18:50 shellfish derived Allergy Shortness Verified 08/19/15 22:46 of Breath ED Review of Systems ROS: Stated complaint: ABDOMINAL PAIN Other details as noted in HPI Comment: All other systems reviewed and negative ED Past Medical Hx - Past Medical History Previous Medical History?: Yes Hx Hypertension: Yes Hx CVA: Yes Hx Heart Attack/AMI: Yes Hx Congestive Heart Failure: No Hx Diabetes: Yes Hx Asthma: No Hx COPD: No - Surgical History Past Surgical History?: Yes Hx Coronary Stent: Yes (26 March 2016) Hx Pacemaker: No Additional Surgical History: tonsillectomy (long time ago) - Social History Smoking Status: Never Smoker Substance Use Type: None - Medications Home Medications: Home Medications Medication Instructions Recorded Confirmed Last Taken Type Baclofen [Lioresal] 5 mg PO TID #45 tablet 09/16/15 06/21/17 06/21/17 Rx Clopidogrel [Plavix] 75 mg PO QDAY #30 tablet 09/16/15 06/21/17 06/21/17 Rx Glimepiride [Amaryl] 4 mg PO QDDIAB #30 tablet 09/16/15 06/21/17 06/21/17 Rx amLODIPine [Norvasc] 10 mg PO QDAY #30 tablet 09/16/15 06/21/17 06/21/17 Rx Aspirin [Aspirin TAB] 325 mg PO QDAY #30 tablet 03/27/16 06/21/17 06/21/17 Rx Metoprolol [Lopressor TAB] 25 mg PO BID #60 tablet 03/27/16 06/21/17 06/21/17 Rx Insulin Glargine [Lantus VIAL] 25 units SUB-Q QHS 06/21/17 06/21/17 06/20/17 History Valsartan/Hydrochlorothiazide 1 each PO DAILY 06/21/17 06/21/17 06/21/17 History [Valsartan-Hctz 160-12.5 mg Tab] cloNIDine [Catapres] 0.1 mg PO TID 06/21/17 06/21/17 06/21/17 History Metoclopramide [Reglan] 10 mg PO QID PRN #30 tab 01/13/18 Unknown Rx ED Physical Exam - General Limitations: Physical Limitation General appearance: alert, in no apparent distress, obese - Head Head exam: Present: atraumatic, normocephalic - Eye Eye exam: Present: normal appearance, EOMI. Absent: nystagmus - ENT ENT exam: Present: normal exam, normal orophraynx, mucous membranes moist, normal external ear exam - Neck Neck exam: Present: normal inspection, full ROM. Absent: tenderness, meningismus - Respiratory Respiratory exam: Present: normal lung sounds bilaterally. Absent: respiratory distress - Cardiovascular Cardiovascular Exam: Present: regular rate, normal rhythm, normal heart sounds. Absent: bradycardia, tachycardia, irregular rhythm, systolic murmur, diastolic murmur, rubs, gallop - GI/Abdominal GI/Abdominal exam: Present: soft. Absent: distended, tenderness, guarding, rebound, rigid, pulsatile mass - Rectal Rectal exam: Present: deferred - Extremities Exam Extremities exam: Present: normal inspection, pedal edema, other (2+ pulses noted in the bilateral upper, lower extremities. There is no long bony tenderness. The compartments are soft. There is a chronic well healing wounds noted in the left lower extremity. There is full range of motion to the right upper, right lower extremity). Absent: calf tenderness - Back Exam Back exam: Present: normal inspection, full ROM. Absent: paraspinal tenderness , vertebral tenderness - Neurological Exam Neurological exam: Present: alert, oriented X3, CN II-XII intact, motor sensory deficit (his chronic weakness in the left upper, left lower extremity.) - Psychiatric Psychiatric exam: Present: normal affect, normal mood - Skin Skin exam: Present: warm, dry, intact, normal color. Absent: rash ED Course Vital Signs 01/12/18 01/13/18 01/13/18 21:02 00:24 00:28 Temperature 98.8 F 98.3 F Pulse Rate 83 73 Respiratory 16 12 Rate Blood Pressure 179/98 Blood Pressure 140/90 [Right] O2 Sat by Pulse 98 100 100 Oximetry 01/13/18 01/13/18 01/13/18 00:31 00:45 01:01 Temperature Pulse Rate Respiratory Rate Blood Pressure Blood Pressure [Right] O2 Sat by Pulse 100 99 100 Oximetry 01/13/18 01/13/18 01/13/18 01:15 02:07 02:15 Temperature Pulse Rate 39 L 75 Respiratory 27 H Rate Blood Pressure 134/84 Blood Pressure [Right] O2 Sat by Pulse 99 100 99 Oximetry - Reevaluation(s) Reevaluation #1: 01/13/18 01:52 Differential diagnosis, including but not limited to: Pneumonia, urinary tract infection, primary hiccups, GERD, gastritis, reflux, hiatal hernia, obstruction , constipation Assessment and plan: 52-year-old male with a primary complaint of hiccups which are ongoing as we speak, resolved abdominal pain, resolved nausea and vomiting. Patient is afebrile with reassuring vital signs with the exception of elevated blood pressure which is not acutely symptomatic. Please reference the [employer] clinical policy of hypertension that is not acutely symptomatic. X-ray the chest is unremarkable, IV fluids, insulin , Reglan ordered, noncontrast CT scan of the abdomen and pelvis is pending at this time. Reevaluation #2: 01/13/18 02:56 The patient is reassessed. He feels improved. He is able to drink without difficulty. When I go back to examine him he is sleeping comfortably. Nurse informs me that the patient was able to drink. X-ray of the chest is unremarkable. Noncontrast CT scan of the abdomen pelvis negative for acute findings. Incidental left-sided inguinal adenopathy is suggested. This is nontender and not obvious on the patient's examination. He can follow-up an outpatient primary care doctor for this. ED Medical Decision Making - Lab Data Result diagrams: 01/12/18 21:23 01/12/18 21:23 Vital Signs 01/12/18 01/13/1801/13/18 21:02 00:24 00:28 Temperature 98.8 F 98.3 F Pulse Rate 83 73 Respiratory 16 12 Rate Blood Pressure 179/98 Blood Pressure 140/90 [Right] O2 Sat by Pulse 98 100 100 Oximetry Lab Results 01/12/18 01/12/18 01/12/18 Range/Units 21:23 21:23 21:43 WBC 10.3 (4.5-11.0) K/mm3 RBC 4.70 (3.65-5.03) M/mm3 Hgb 14.3 (11.8-15.2) gm/dl Hct 41.8 (35.5-45.6) % MCV 89 (84-94) fl MCH 31 (28-32) pg MCHC 34 (32-34) % RDW 13.6 (13.2-15.2) % Plt Count 221 (140-440) K/mm3 Lymph % (Auto) 13.1 L (13.4-35.0) % [place] % (Auto) 4.8 (0.0-7.3) % Eos % (Auto) 0.2 (0.0-4.3) % Baso % (Auto) 0.8 (0.0-1.8) % Lymph # 1.3 (1.2-5.4) K/mm3 [place] # 0.5 (0.0-0.8) K/mm3 Eos # 0.0 (0.0-0.4) K/mm3 Baso # 0.1 (0.0-0.1) K/mm3 Seg Neutrophils % 81.1 H (40.0-70.0) % Seg Neutrophils # 8.3 H (1.8-7.7) K/mm3 Sodium 132 L (137-145) mmol/L Potassium 4.0 (3.6-5.0) mmol/L Chloride 92.8 L (98-107) mmol/L Carbon Dioxide 24 (22-30) mmol/L Anion Gap 19 mmol/L BUN 29 H (9-20) mg/dL Creatinine 1.5 (0.8-1.5) mg/dL Estimated GFR 60 ml/min BUN/Creatinine Ratio 19 % Glucose 351 H (75-100) mg/dL Calcium 9.4 (8.4-10.2) mg/dL Total Bilirubin 0.80 (0.1-1.2) mg/dL AST 22 (5-40) units/L ALT 28 (7-56) units/L Alkaline Phosphatase 112 (35-129) units/L Total Protein 7.6 (6.3-8.2) g/dL Albumin 3.8 L (3.9-5) g/dL Albumin/Globulin Ratio 1.0 % Urine Color Yellow (Yellow) Urine Turbidity Clear (Clear) Urine pH 6.0 (5.0-7.0) Ur Specific [place] 1.015 (1.003-1.030) Urine Protein 30 mg/dl (Negative) mg/dL Urine Glucose (UA) >=500 (Negative) mg/dL Urine Ketones Neg (Negative) mg/dL Urine Blood Mod (Negative) Urine Nitrite Neg (Negative) Urine Bilirubin Neg (Negative) Urine Urobilinogen < 2.0 (<2.0) mg/dL Ur Leukocyte Esterase Neg (Negative) Urine WBC (Auto) < 1.0 (0.0-6.0) /HPF Urine RBC (Auto) 11.0 (0.0-6.0) /HPF U Epithel Cells (Auto) < 1.0 (0-13.0) /HPF Urine Mucus Few /HPF - EKG Data -: EKG Interpreted by Me EKG shows normal: sinus rhythm - EKG Data 01/13/18 01:54 Sinus, 65 bpm, left axis deviation, normal intervals, poor R-wave progression, Q waves in the septal leads, Q waves in the inferior leads, appears unchanged from prior EKG from May 2017. - Radiology Data Radiology results: image reviewed interpreted by me: X-ray of the chest is unremarkable, no acute disease, elevated right hemidiaphragm Critical care attestation.: If time is entered above; I have spent that time in minutes in the direct care of this critically ill patient, excluding procedure time. ED Disposition Clinical Impression: Hiccups Disposition: DC-01 TO HOME OR SELFCARE Is pt being admited?: No Does the pt Need Aspirin: No Condition: Good Additional Instructions: Continue current outpatient medications. Take nausea medication as needed/ directed. Follow up with the primary care doctor within the next 2-[address] scan of the abdomen and pelvis demonstrated nonspecific lymph nodes in the left groin. Please follow up with her primary care doctor for this within the recommended timeframe. It is unlikely that these lymph nodes represent any dangerous medical disease, but your primary care doctor should follow this up to make certain that these do not represent atypical presentation of cancer, tumor, malignancy. Return to the ER right away with new pain, worsened pain, migration of pain, projectile vomiting, change in mental status, confusion, inability to tolerate liquid feedings. Referrals: GABRIELLE COOPER MD [Primary Care Provider] - 3-5 Days
[2018-01-13 02:24] VITALS: BP 134/84
--- NOTE | 2018-01-13 02:34 | XRay Report ---
FINAL REPORT EXAM: XR CHEST ROUTINE 2V HISTORY: hiccups, n/v TECHNIQUE: PA and lateral views of the chest were obtained. PRIORS: None. FINDINGS: There are no focal consolidations to suggest pneumonia. No large pleural effusion. No pneumothorax. Cardiac silhouette and mediastinal structures are unremarkable. No acute osseous abnormality identified. Multilevel thoracic degenerative changes. IMPRESSION: No radiographic evidence of acute cardiopulmonary disease.
--- NOTE | 2018-01-13 02:43 | Cat Scan Report ---
FINAL REPORT EXAM: CT ABDOMEN PELVIS WO CON HISTORY: n/v hiccups, resolved abd pain. TECHNIQUE: CT evaluation performed of the abdomen and pelvis without IV or oral contrast administration. Coronal and sagittal imaging also provided for interpretation. Evaluation of the left upper quadrant is limited secondary to previously administered contrast within colon. Specifically evaluation of the left kidney, pancreas and spleen are suboptimal. PRIORS: Chest radiographs 01/12/2018. FINDINGS: Lower thorax: The lung bases are clear. Coronary atherosclerotic vascular calcifications. No significant cardiac enlargement. Liver: No focal lesions identified of the liver. No intrahepatic biliary ductal dilation. Gallbladder/ biliary system: No cholelithiasis. No extrahepatic biliary ductal dilation. Spleen: No splenic lesions are seen. Evaluation limited. Pancreas: No pancreatic duct dilatation noted. Kidneys: Evaluation of the left kidney limited. No hydronephrosis. Adrenal glands: No adrenal masses. Vasculature: The abdominal and pelvic vasculature demonstrates mild atherosclerotic vascular calcifications. Lymph nodes: Enlarged left inguinal lymph nodes (axial images 228-213). Correlation with clinical exam requested. Bowel, mesentery, peritoneum: No bowel obstruction. The appendix is normal. No free intra-abdominal fluid or air. Urinary bladder: No calculi or wall thickening. Pelvis: Normal anatomy is noted. No masses. Bones: No acute osseous abnormality. Transitional lumbosacral anatomy and multilevel degenerative changes of the thoracolumbar spine and bilateral hips. IMPRESSION: No noncontrast CT evidence of acute abdominopelvic process. Enlarged left inguinal lymph nodes which may be reactive or neoplastic. Correlation with clinical exam requested. No additional enlarged lymph nodes noted. Coronary and aortic atherosclerotic vascular calcifications.
== END 2018-01-13 03:05 | disposition home or self-care (01) ==
LOC: ED 20:52
DX: R06.6 Hiccough (principal); I10 Essential (primary) hypertension; Z86.73 Personal history of transient ischemic attack (TIA), and cerebral infarction without residual deficits; I25.2 Old myocardial infarction; Z95.818 Presence of other cardiac implants and grafts; Z90.89 Acquired absence of other organs; Z91.09 Other allergy status, other than to drugs and biological substances; Z91.013 Allergy to seafood; Z79.899 Other long term (current) drug therapy
CPT/HCPCS: 36415; 71046; 74176; 80053; 81001; 85025; 93005; 93010; 96374; 96375; 99285; J2765; J7040; J1815

== ENCOUNTER 2018-01-18 09:44 | Inpatient (IN) | payer BC ==
[2018-01-18] MEDS ORDERED: NACL 0.9% 1000 ML 1,000 ML IV ONE (10:38)
[2018-01-18 10:43] LABS: Basophils # (Auto) 0.1 K/mm3 (0.0-0.1); Basophils % (Auto) 0.5 % (0.0-1.8); Eosinophils % (Auto) 0.1 % (0.0-4.3); Hematocrit 45.1 % (35.5-45.6); Hemoglobin 15.2 gm/dl (11.8-15.2); Lymphocytes # (Auto) 2.2 K/mm3 (1.2-5.4); Lymphocytes % (Auto) 19.7 % (13.4-35.0); Mean Corpuscular HGB Conc 34 % (32-34); Mean Corpuscular Hemoglobin 30 pg (28-32); Mean Corpuscular Volume 88 fl (84-94); Monocytes % (Auto) 8.7 % (0.0-7.3); Platelet Count 248 K/mm3 (140-440); Red Blood Count 5.11 M/mm3 (3.65-5.03); Red Cell Distribution Width 13.8 % (13.2-15.2)
[2018-01-18] MEDS ORDERED: PROTONIX IV ONE (10:43)
--- NOTE | 2018-01-18 10:46 | Emergency Department Report ---
ED N/V/D HPI - General Chief complaint: Chest Pain Stated complaint: CHEST PAIN Time Seen by Provider: 01/18/18 10:23 Source: patient, old records reviewed Mode of arrival: Wheelchair Limitations: No Limitations - History of Present Illness Initial comments: 52-year-old male with past medical history diabetes, CVA with residual left- sided weakness, GERD, CAD with stent 2, and hypertension presents to the hospital complaints of persistent hiccups 10 days. Patient was seen here on January 12 with the same complaints. He had a noncontrast CT abdomen and pelvis was unremarkable for acute findings other than left lymphadenopathy. He was discharged on Reglan. Despite taking this medication. States he continues to have hiccups with associated nausea, vomiting, and by mouth intolerance. He is able to tolerate minimal fluids. Patient now states he is having reflux due to the vomiting which is described as a burning pain in the center of his chest. He denies abdominal pain, diarrhea, or fever. Patient has had intractable hiccups in the past. Similar episode of intractable hiccups 2 years ago in 2015 when he presented here also with NSTEMI requiring stent placement. He also had chest pain at that time. - Related Data Home Medications Medication Instructions Recorded Confirmed Last Taken Insulin Glargine [Lantus VIAL] 25 units SUB-Q QHS 06/21/17 01/18/18 2 Weeks Ago ~01/04/18 Valsartan/Hydrochlorothiazide 1 each PO DAILY 06/21/17 01/18/18 2 Weeks Ago [Valsartan-Hctz 160-12.5 mg Tab] ~01/04/18 cloNIDine [Catapres] 0.1 mg PO TID 06/21/17 01/18/18 2 Weeks Ago ~01/04/18 Previous Rx's Medication Instructions Recorded Last Taken Type Baclofen [Lioresal] 5 mg PO TID #45 tablet 09/16/15 2 Weeks Ago Rx ~01/04/18 Clopidogrel [Plavix] 75 mg PO QDAY #30 tablet 09/16/15 2 Weeks Ago Rx ~01/04/18 Glimepiride [Amaryl] 4 mg PO QDDIAB #30 tablet 09/16/15 2 Weeks Ago Rx ~01/04/18 amLODIPine [Norvasc] 10 mg PO QDAY #30 tablet 09/16/15 2 Weeks Ago Rx ~01/04/18 Aspirin [Aspirin TAB] 325 mg PO QDAY #30 tablet 03/27/16 2 Weeks Ago Rx ~01/04/18 Metoprolol [Lopressor TAB] 25 mg PO BID #60 tablet 03/27/16 2 Weeks Ago Rx ~01/04/18 Metoclopramide [Reglan] 10 mg PO QID PRN #30 tab 01/13/18 2 Weeks Ago Rx ~01/04/18 Allergies Allergy/AdvReac Type Severity Reaction Status Date / Time vitamin K2 Allergy Intermediate Swelling Verified 03/21/16 18:50 shellfish derived Allergy Shortness Verified 08/19/15 22:46 of Breath ED Review of Systems ROS: Stated complaint: CHEST PAIN Other details as noted in HPI Comment: All other systems reviewed and negative ED Past Medical Hx - Past Medical History Previous Medical History?: Yes Hx Hypertension: Yes Hx CVA: Yes (LUE and LLE weakness) Hx Heart Attack/AMI: Yes Hx Congestive Heart Failure: No Hx Diabetes: Yes Hx GERD: Yes Hx Asthma: No Hx COPD: No - Surgical History Past Surgical History?: Yes Hx Coronary Stent: Yes (26 March 2016) Hx Pacemaker: No Additional Surgical History: tonsillectomy (long time ago) - Social History Smoking Status: Never Smoker Substance Use Type: None - Medications Home Medications: Home Medications Medication Instructions Recorded Confirmed Last Taken Type Baclofen [Lioresal] 5 mg PO TID #45 tablet 09/16/15 01/18/18 2 Weeks Ago Rx ~01/04/18 Clopidogrel [Plavix] 75 mg PO QDAY #30 tablet 09/16/15 01/18/18 2 Weeks Ago Rx ~01/04/18 Glimepiride [Amaryl] 4 mg PO QDDIAB #30 tablet 09/16/15 01/18/18 2 Weeks Ago Rx ~01/04/18 amLODIPine [Norvasc] 10 mg PO QDAY #30 tablet 09/16/15 01/18/18 2 Weeks Ago Rx ~01/04/18 Aspirin [Aspirin TAB] 325 mg PO QDAY #30 tablet 03/27/16 01/18/18 2 Weeks Ago Rx ~01/04/18 Metoprolol [Lopressor TAB] 25 mg PO BID #60 tablet 03/27/16 01/18/18 2 Weeks Ago Rx ~01/04/18 Insulin Glargine [Lantus VIAL] 25 units SUB-Q QHS 06/21/17 01/18/18 2 Weeks Ago History ~01/04/18 Valsartan/Hydrochlorothiazide 1 each PO DAILY 06/21/17 01/18/18 2 Weeks Ago History [Valsartan-Hctz 160-12.5 mg Tab] ~01/04/18 cloNIDine [Catapres] 0.1 mg PO TID 06/21/17 01/18/18 2 Weeks Ago History ~01/04/18 Metoclopramide [Reglan] 10 mg PO QID PRN #30 tab 01/13/18 01/18/18 2 Weeks Ago Rx ~01/04/18 ED Physical Exam - General Limitations: No Limitations - Other Other exam information: General: No limitations, patient is alert in no acute distress Head exam: Atraumatic, normocephalic Eyes exam: Normal appearance ENT: Moist mucous membrane, normal TMs bilaterally Neck exam: Normal inspection, full range of motion, no meningismus nontender Respiratory exam: Clear to auscultation bilateral, no wheezes, rales, crackles Cardiovascular: Tachycardic regular rhythm sounds Abdomen: Soft, nondistended, and nontender, with normal bowel sounds, no rebound, or guarding. Persistent hiccups during examination Extremity: Full range of motion normal inspection no deformity Back: Normal Inspection, full range of motion, no tenderness Neurologic: Alert, oriented x3, cranial nerves intact, limited movement of his left hand, 4/5 left upper and lower extremity strength Psychiatric: normal affect, normal mood Skin: Warm, dry, intact ED Course Vital Signs 01/18/18 10:06 Temperature 98.9 F Pulse Rate 114 H Respiratory 18 Rate Blood Pressure 153/94 O2 Sat by Pulse 100 Oximetry - Reevaluation(s) Reevaluation #1: 01/18/18 12:25 pt states hiccups have improved after thorazine - Consultations Consultation #1: 01/18/18 11:35 Stacey Salinas (GI) consulted, will eval pt 01/18/18 12:25 Dr Espinal with [facility] heart evaluated pt, consult ordered ED Medical Decision Making - Lab Data Result diagrams: 01/18/18 10:24 01/18/18 10:24 Lab Results 01/18/18 01/18/18 01/18/18 Range/Units 10:24 10:24 10:31 WBC 11.2 H (4.5-11.0) K/mm3 RBC 5.11 H (3.65-5.03) M/mm3 Hgb 15.2 (11.8-15.2) gm/dl Hct 45.1 (35.5-45.6) % MCV 88 (84-94) fl MCH 30 (28-32) pg MCHC 34 (32-34) % RDW 13.8 (13.2-15.2) % Plt Count 248 (140-440) K/mm3 Lymph % (Auto) 19.7 (13.4-35.0) % [place] % (Auto) 8.7 H (0.0-7.3) % Eos % (Auto) 0.1 (0.0-4.3) % Baso % (Auto) 0.5 (0.0-1.8) % Lymph # 2.2 (1.2-5.4) K/mm3 [place] # 1.0 H (0.0-0.8) K/mm3 Eos # 0.0 (0.0-0.4) K/mm3 Baso # 0.1 (0.0-0.1) K/mm3 Seg Neutrophils % 71.0 H (40.0-70.0) % Seg Neutrophils # 7.9 H (1.8-7.7) K/mm3 PT 14.9 (12.2-14.9) Sec. INR 1.12 (0.87-1.13) APTT 23.0 L (24.2-36.6) Sec. Sodium 137 (137-145) mmol/L Potassium 3.9 (3.6-5.0) mmol/L Chloride 95.5 L (98-107) mmol/L Carbon Dioxide 27 (22-30) mmol/L Anion Gap 18 mmol/L BUN 33 H (9-20) mg/dL Creatinine 1.4 (0.8-1.5) mg/dL Estimated GFR > 60 ml/min BUN/Creatinine Ratio 24 % Glucose 283 H (75-100) mg/dL POC Glucose (70-105) Calcium 9.4 (8.4-10.2) mg/dL Total Bilirubin (0.1-1.2) mg/dL Direct Bilirubin (0-0.2) mg/dL AST (5-40) units/L ALT (7-56) units/L Alkaline Phosphatase (35-129) units/L Troponin T 0.061 H (0.00-0.029) ng/mL Total Protein (6.3-8.2) g/dL Albumin (3.9-5) g/dL Albumin/Globulin Ratio % Triglycerides 149 (2-149) mg/dL Cholesterol 158 (50-199) mg/dL LDL Cholesterol Direct 94 (50-130) mg/dL HDL Cholesterol 35 L (40-59) mg/dL Cholesterol/HDL Ratio 4.51 % Lipase (13-60) units/L 01/18/18 01/18/18 Range/Units 10:31 10:43 WBC (4.5-11.0) K/mm3 RBC (3.65-5.03) M/mm3 Hgb (11.8-15.2) gm/dl Hct (35.5-45.6) % MCV (84-94) fl MCH (28-32) pg MCHC (32-34) % RDW (13.2-15.2) % Plt Count (140-440) K/mm3 Lymph % (Auto) (13.4-35.0) % [place] % (Auto) (0.0-7.3) % Eos % (Auto) (0.0-4.3) % Baso % (Auto) (0.0-1.8) % Lymph # (1.2-5.4) K/mm3 [place] # (0.0-0.8) K/mm3 Eos # (0.0-0.4) K/mm3 Baso # (0.0-0.1) K/mm3 Seg Neutrophils % (40.0-70.0) % Seg Neutrophils # (1.8-7.7) K/mm3 PT (12.2-14.9) Sec. INR (0.87-1.13) APTT (24.2-36.6) Sec. Sodium (137-145) mmol/L Potassium (3.6-5.0) mmol/L Chloride (98-107) mmol/L Carbon Dioxide (22-30) mmol/L Anion Gap mmol/L BUN (9-20) mg/dL Creatinine (0.8-1.5) mg/dL Estimated GFR ml/min BUN/Creatinine Ratio % Glucose (75-100) mg/dL POC Glucose 263 H (70-105) Calcium (8.4-10.2) mg/dL Total Bilirubin 1.00 (0.1-1.2) mg/dL Direct Bilirubin < 0.2 (0-0.2) mg/dL AST 23 (5-40) units/L ALT 25 (7-56) units/L Alkaline Phosphatase 98 (35-129) units/L Troponin T (0.00-0.029) ng/mL Total Protein 7.3 (6.3-8.2) g/dL Albumin 3.9 (3.9-5) g/dL Albumin/Globulin Ratio 1.1 % Triglycerides (2-149) mg/dL Cholesterol (50-199) mg/dL LDL Cholesterol Direct (50-130) mg/dL HDL Cholesterol (40-59) mg/dL Cholesterol/HDL Ratio % Lipase 15 (13-60) units/L - EKG Data -: EKG Interpreted by Me (previous inferior infarct, anterior infarct, and lateral infarct) EKG shows normal: sinus rhythm, axis (qrs -46), QRS complexes (qrsd 82), ST-T waves (no stemi) Rate: tachycardia (103) - EKG Data When compared to previous EKG there are: no significant change (01/13/18) - Medical Decision Making Hiccups treated with Thorazine and ED, gi consulted Associated nausea and vomiting with dehydration and normal saline initiated, Zofran Associated GERD secondary to vomiting IV Protonix given Patient has mild elevation in troponin was has been mildly elevated in the past. This level is slightly increased compared to previous. EKG is unchanged. Aspirin provided. cardiology consulted - Differential Diagnosis intractable hiccups, dehydration, uremia, GERD, PA Critical Care Time: No Critical care attestation.: If time is entered above; I have spent that time in minutes in the direct care of this critically ill patient, excluding procedure time. ED Disposition Clinical Impression: Intractable hiccups, Left hemiparesis, GERD (gastroesophageal reflux disease), Vomiting, Dehydration, Elevated troponin, CAD (coronary artery disease), Diabetes Disposition: DC-09 OP ADMIT IP TO THIS HOSP Is pt being admited?: Yes Condition: Stable Time of Disposition: 12:26 (DR Araya/hospitalist)
[2018-01-18 10:54] LABS: INR 1.12 (0.87-1.13)
[2018-01-18] MEDS ORDERED: THORAZINE 50 MG in NACL 0.9% 100 ML IV ONE (11:00)
[2018-01-18 11:05] LABS: BUN/Creatinine Ratio 24; Blood Urea Nitrogen 33 mg/dL (9-20); Calcium 9.4 mg/dL (8.4-10.2); Hemolysis Index 59
[2018-01-18 11:08] LABS: Alanine Aminotransferase 25 units/L (7-56); Albumin 3.9 g/dL (3.9-5); Lipase 15 units/L (13-60)
[2018-01-18 11:16] LABS: Bilirubin,Direct < 0.2 mg/dL (0-0.2)
[2018-01-18] MEDS ORDERED: ASPIRIN PO ONE (11:31)
[2018-01-18] MEDS ORDERED: ZOFRAN IV ONE (11:31)
[2018-01-18 11:33] LABS: Chol/HDL Ratio 4.51 %; HDL Cholesterol 35 mg/dL (40-59); LDL Cholesterol,Direct 94 mg/dL (50-130)
--- NOTE | 2018-01-18 12:27 | Consultation ---
History of Present Illness Consult date: 01/18/18 Consult reason: elevated troponin History of present illness: This is a 52 year old male with a history of dilated ischemic cardiomyopathy and coronary artery disease. He also has a history of prior CVA with left hemiparesis, hypertension, diabetes and history of hiccups. His latest cardiac workup was a stress thallium test 6 months ago that documents a small reversible apical and mid anteroseptal andsmall reversible basal inferolateral wall defects, as well as, a small fixed apical inferior defect, LVEF 40%. Patient presents to the emergency department with complaints of hiccups over 10 days. Of note, patient was seen at this hospital January 12 with similar complaints. He had a noncontrast CT abdomen and pelvis was unremarkable for acute findings. He was discharged home on Reglan. Despite taking this medication he continues to have hiccups associated with abdominal pain, nausea and vomiting. On this presentation the cardiac enzymes are mildly elevated thus this cardiac consultation. Patient reports atypical chest pain following vomiting. His ECG is a sinus rhythm, unchanged from prior ECG done a week ago and 6 months ago. Medications and Allergies Allergies Allergy/AdvReac Type Severity Reaction Status Date / Time vitamin K2 Allergy Intermediate Swelling Verified 03/21/16 18:50 shellfish derived Allergy Shortness Verified 08/19/15 22:46 of Breath Home Medications Medication Instructions Recorded Confirmed Last Taken Type Baclofen [Lioresal] 5 mg PO TID #45 tablet 09/16/15 01/18/18 2 Weeks Ago Rx ~01/04/18 Clopidogrel [Plavix] 75 mg PO QDAY #30 tablet 09/16/15 01/18/18 2 Weeks Ago Rx ~01/04/18 Glimepiride [Amaryl] 4 mg PO QDDIAB #30 tablet 09/16/15 01/18/18 2 Weeks Ago Rx ~01/04/18 amLODIPine [Norvasc] 10 mg PO QDAY #30 tablet 09/16/15 01/18/18 2 Weeks Ago Rx ~01/04/18 Aspirin [Aspirin TAB] 325 mg PO QDAY #30 tablet 03/27/16 01/18/18 2 Weeks Ago Rx ~01/04/18 Metoprolol [Lopressor TAB] 25 mg PO BID #60 tablet 03/27/16 01/18/18 2 Weeks Ago Rx ~01/04/18 Insulin Glargine [Lantus VIAL] 25 units SUB-Q QHS 06/21/17 01/18/18 2 Weeks Ago History ~01/04/18 Valsartan/Hydrochlorothiazide 1 each PO DAILY 06/21/17 01/18/18 2 Weeks Ago History [Valsartan-Hctz 160-12.5 mg Tab] ~01/04/18 cloNIDine [Catapres] 0.1 mg PO TID 06/21/17 01/18/18 2 Weeks Ago History ~01/04/18 Metoclopramide [Reglan] 10 mg PO QID PRN #30 tab 01/13/18 01/18/18 2 Weeks Ago Rx ~01/04/18 Physical Examination Vital Signs Temp Pulse Resp BP Pulse Ox 98.9 F 114 H 18 153/94 100 01/18/18 10:06 01/18/18 10:06 01/18/18 10:06 01/18/18 10:06 01/18/18 10:06 General appearance: no acute distress HEENT: Positive: PERRL Cardiac: Positive: Tachycardia Results 01/18/18 10:24 01/18/18 10:24 Cardiac Enzymes 01/18/18 Range/Units 10:31 AST 23 (5-40) units/L Coagulation 01/18/18 Range/Units 10:31 PT 14.9 (12.2-14.9) Sec. INR 1.12 (0.87-1.13) APTT 23.0 L (24.2-36.6) Sec. Lipids 01/18/18 Range/Units 10:24 Triglycerides 149 (2-149) mg/dL Cholesterol 158 (50-199) mg/dL HDL Cholesterol 35 L (40-59) mg/dL Cholesterol/HDL Ratio 4.51 % CBC 01/18/18 Range/Units 10:24 WBC 11.2 H (4.5-11.0) K/mm3 RBC 5.11 H (3.65-5.03) M/mm3 Hgb 15.2 (11.8-15.2) gm/dl Hct 45.1 (35.5-45.6) % Plt Count 248 (140-440) K/mm3 Lymph # 2.2 (1.2-5.4) K/mm3 [place] # 1.0 H (0.0-0.8) K/mm3 Eos # 0.0 (0.0-0.4) K/mm3 Baso # 0.1 (0.0-0.1) K/mm3 Comprehensive Metabolic Panel 01/18/18 01/18/18 Range/Units 10:24 10:31 Sodium 137 (137-145) mmol/L Potassium 3.9 (3.6-5.0) mmol/L Chloride 95.5 L (98-107) mmol/L Carbon Dioxide 27 (22-30) mmol/L BUN 33 H (9-20) mg/dL Creatinine 1.4 (0.8-1.5) mg/dL Glucose 283 H (75-100) mg/dL Calcium 9.4 (8.4-10.2) mg/dL Direct Bilirubin < 0.2 (0-0.2) mg/dL AST 23 (5-40) units/L ALT 25 (7-56) units/L Alkaline Phosphatase 98 (35-129) units/L Total Protein 7.3 (6.3-8.2) g/dL Albumin 3.9 (3.9-5) g/dL Assessment and Plan Atypical chest pain after intractable nausea and vomiting No ECG changes when compared to previous Small reversible apical and mid anteroseptal andsmall reversible basal inferolateral wall defects, as well as, a small fixed apical inferior defect, LVEF 40% by MPI Hx of CAD s/p PCI to proximal LAD and mid RCA 03/2016 Ischemic cardiomyopathy History of CVA Systemic Hypertension Type II DM Recommendations: Trend troponins. Work-up for intractable nausea and vomiting per primary team.
--- NOTE | 2018-01-18 16:10 | Gastroenterology Consultation ---
History of Present Illness - Reason for Consult Consult date: 01/18/18 intractable hiccups, vomiting Requesting physician: SANTOS NARANJO - History of Present Illness Patient is a 52 y/o male with PMH of DM, HTN, CAD (s/p stents x 2 in 2015), and CVA with residual left sided weakness who presented to ED with c/o persistent hiccups with associated N/V, inability to tolerate PO intake, and chest burning due to reflux with vomiting to which GI has been consulted. Upon admission troponin was found to be mildly elevated but EKG unchanged with negative stress test 6 months ago (EF 40%). Cardiology is following. He was last being seen on for similar symptoms with no improvement despite taking Reglan. Chest x -ray and Abd CT on 01/12 negative for any acute findings. This afternoon patient was resting in on stretcher w/o acute distress and family at bedside. He reports hiccups are improved after receiving Thorazine. He states that he has had intermittent episodes of hiccups and N/V for the past couple of years but symptoms have progressively worsened of the last few weeks. He has also developed heartburn with regurgitation over the past few days. Denies fever, wt loss, SOB, abd pain, dysphagia, odynophagia, signs of bleeding, diarrhea, or constipation. Takes ASA and Plavix at home (last dose yesterday). No hx of PUD or previous EGD. Past History Past Medical History: CAD, diabetes, hypertension, stroke Past Surgical History: tonsillectomy, Other (cardiac stents x 2 in 2016) Social history: , lives with family. denies: smoking, alcohol abuse Family history: hypertension Medications and Allergies Allergies Allergy/AdvReac Type Severity Reaction Status Date / Time vitamin K2 Allergy Intermediate Swelling Verified 03/21/16 18:50 shellfish derived Allergy Shortness Verified 08/19/15 22:46 of Breath Home Medications Medication Instructions Recorded Confirmed Last Taken Type Baclofen [Lioresal] 5 mg PO TID #45 tablet 09/16/15 01/18/18 2 Weeks Ago Rx ~01/04/18 Clopidogrel [Plavix] 75 mg PO QDAY #30 tablet 09/16/15 01/18/18 2 Weeks Ago Rx ~01/04/18 Glimepiride [Amaryl] 4 mg PO QDDIAB #30 tablet 09/16/15 01/18/18 2 Weeks Ago Rx ~01/04/18 amLODIPine [Norvasc] 10 mg PO QDAY #30 tablet 09/16/15 01/18/18 2 Weeks Ago Rx ~01/04/18 Aspirin [Aspirin TAB] 325 mg PO QDAY #30 tablet 03/27/16 01/18/18 2 Weeks Ago Rx ~01/04/18 Metoprolol [Lopressor TAB] 25 mg PO BID #60 tablet 03/27/16 01/18/18 2 Weeks Ago Rx ~01/04/18 Insulin Glargine [Lantus VIAL] 25 units SUB-Q QHS 06/21/17 01/18/18 2 Weeks Ago History ~01/04/18 Valsartan/Hydrochlorothiazide 1 each PO DAILY 06/21/17 01/18/18 2 Weeks Ago History [Valsartan-Hctz 160-12.5 mg Tab] ~01/04/18 cloNIDine [Catapres] 0.1 mg PO TID 06/21/17 01/18/18 2 Weeks Ago History ~01/04/18 Metoclopramide [Reglan] 10 mg PO QID PRN #30 tab 01/13/18 01/18/18 2 Weeks Ago Rx ~01/04/18 Review of Systems - Review of Systems All systems: negative Gastrointestinal: vomiting, heartburn, indigestion, other (hiccups) Exam - Constitutional Vital Signs: Temp Pulse Resp BP Pulse Ox 98.9 F 101 H 18 125/82 98 01/18/18 10:06 01/18/18 14:00 01/18/18 14:00 01/18/18 14:00 01/18/18 14:00 General appearance: no acute distress, obese - EENT Eyes: PERRL, EOM intact ENT: hearing intact - Respiratory Respiratory: bilateral: CTA - Cardiovascular Rhythm: other (tachycardia) - Gastrointestinal General gastrointestinal: Present: soft, non-tender, non-distended, normal bowel sounds - Neurologic Neurological: alert and oriented x3 - Labs CBC & Chem 7: 01/18/18 10:24 01/18/18 10:24 Lab Results: Laboratory Results - last 24 hr 01/18/18 01/18/18 01/18/18 10:24 10:24 10:31 WBC 11.2 H RBC 5.11 H Hgb 15.2 Hct 45.1 MCV 88 MCH 30 MCHC 34 RDW 13.8 Plt Count 248 Lymph % (Auto) 19.7 [place] % (Auto) 8.7 H Eos % (Auto) 0.1 Baso % (Auto) 0.5 Lymph # 2.2 [place] # 1.0 H Eos # 0.0 Baso # 0.1 Seg Neutrophils % 71.0 H Seg Neutrophils # 7.9 H PT 14.9 INR 1.12 APTT 23.0 L Sodium 137 Potassium 3.9 Chloride 95.5 L Carbon Dioxide 27 Anion Gap 18 BUN 33 H Creatinine 1.4 Estimated GFR > 60 BUN/Creatinine Ratio 24 Glucose 283 H POC Glucose Calcium 9.4 Total Bilirubin Direct Bilirubin AST ALT Alkaline Phosphatase Troponin T 0.061 H Total Protein Albumin Albumin/Globulin Ratio Triglycerides 149 Cholesterol 158 LDL Cholesterol Direct 94 HDL Cholesterol 35 L Cholesterol/HDL Ratio 4.51 Lipase 01/18/18 01/18/18 01/18/18 10:31 10:43 13:25 WBC RBC Hgb Hct MCV MCH MCHC RDW Plt Count Lymph % (Auto) [place] % (Auto) Eos % (Auto) Baso % (Auto) Lymph # [place] # Eos # Baso # Seg Neutrophils % Seg Neutrophils # PT INR APTT Sodium Potassium Chloride Carbon Dioxide Anion Gap BUN Creatinine Estimated GFR BUN/Creatinine Ratio Glucose POC Glucose 263 H Calcium Total Bilirubin 1.00 Direct Bilirubin < 0.2 AST 23 ALT 25 Alkaline Phosphatase 98 Troponin T 0.049 H Total Protein 7.3 Albumin 3.9 Albumin/Globulin Ratio 1.1 Triglycerides Cholesterol LDL Cholesterol Direct HDL Cholesterol Cholesterol/HDL Ratio Lipase 15 Assessment and Plan 1.intractable hiccups 2.N/V 3.GERD 4.atypical CP (mildly elevated troponin but EKG unchanged and no clinical evidence of ACS; cardiology following with no further workup recommended) -chest x-ray and abd CT 01/12 unremarkable -etiology unclear- possibly related to reflux vs ulcer vs uncontrolled glucose levels (gastroparesis?) vs other -recommend an EGD for further evaluation in am (spoke with cardiology in regards to EGD with clearance given) -start on PPI -okay to start on clears today if tolerated, then NPO after MN -continue supportive care -will follow
[2018-01-18] MEDS ORDERED: PROTONIX IV SCH (22:00)
--- NOTE | 2018-01-19 00:09 | Progress Note ---
Assessment and Plan - Patient Problems (1) Acute chest pain Current Visit: No Status: Acute Plan to address problem: Chest pain work up Lexiscan in ANM (2) CAD (coronary artery disease) Current Visit: Yes Status: Chronic Qualifiers: Coronary Disease-Associated Artery/Lesion type: unga artery [place] vs. transplanted heart: unga heart Plan to address problem: On Plavix (3) Diabetes Current Visit: Yes Status: Chronic Qualifiers: Diabetes mellitus type: type 2 Plan to address problem: Cont Insulin and coverage (4) Intractable hiccups Current Visit: Yes Status: Acute Plan to address problem: Thorazine prn (5) Left hemiparesis Current Visit: Yes Status: Chronic Plan to address problem: Supportive/Home PT (6) HTN (hypertension) Current Visit: Yes Status: Chronic Qualifiers: Hypertension type: essential hypertension Qualified Code(s): I10 - Essential (primary) hypertension Plan to address problem: Cont antihypertensive (7) DVT prophylaxis Current Visit: Yes Status: Acute Plan to address problem: On Lovenox Subjective Date of service: 01/18/18 Principal diagnosis: Chest pain,Hiccups Interval history: History of Present Illness: 52-year-old male with past medical history diabetes, CVA with residual left- sided weakness, GERD, CAD with stent 2, and hypertension presents to the hospital complaints of persistent hiccups 10 days. Patient was seen here on January 12 with the same complaints. He had a noncontrast CT abdomen and pelvis was unremarkable for acute findings other than left lymphadenopathy. He was discharged on Reglan. Despite taking this medication continues to have hiccups with associated nausea, vomiting, and by mouth intolerance. He is able to tolerate minimal fluids. Patient now states he is having reflux due to the vomiting which is described as a burning pain in the center of his chest. He denies abdominal pain, diarrhea, or fever. Patient has had intractable hiccups in the past. Similar episode of intractable hiccups 2 years ago in 2016 when he presented here also with NSTEMI requiring stent placement. He also had chest pain at that time. Past Medical History Previous Medical History?: Yes Hypertension: Yes CVA: Yes (LUE and LLE weakness) Heart Attack/AMI: Yes Diabetes: Yes GERD: Yes Surgical History Past Surgical History?: Yes Hx Coronary Stent: Yes (26 March 2016) Hx Pacemaker: No Additional Surgical History: tonsillectomy (long time ago) Social History Smoking Status: Never Smoker Substance Use Type: None -Medications Home Medications: Home Medications Medication Instructions Recorded Confirmed Last Taken Type Baclofen [Lioresal] 5 mg PO TID #45 tablet 09/16/15 01/18/18 2 Weeks Ago Rx ~01/04/18 Clopidogrel [Plavix] 75 mg PO QDAY #30 tablet 09/16/15 01/18/18 2 Weeks Ago Rx ~01/04/18 Glimepiride [Amaryl] 4 mg PO QDDIAB #30 tablet 09/16/15 01/18/18 2 Weeks Ago Rx ~01/04/18 amLODIPine [Norvasc] 10 mg PO QDAY #30 tablet 09/16/15 01/18/18 2 Weeks Ago Rx ~01/04/18 Aspirin [Aspirin TAB] 325 mg PO QDAY #30 tablet 03/27/16 01/18/18 2 Weeks Ago Rx ~01/04/18 Metoprolol [Lopressor TAB] 25 mg PO BID #60 tablet 03/27/16 01/18/18 2 Weeks Ago Rx ~01/04/18 Insulin Glargine [Lantus VIAL] 25 units SUB-Q QHS 06/21/17 01/18/18 2 Weeks Ago History ~01/04/18 Valsartan/Hydrochlorothiazide 1 each PO DAILY 06/21/17 01/18/18 2 Weeks Ago History [Valsartan-Hctz 160-12.5 mg Tab] ~01/04/18 cloNIDine [Catapres] 0.1 mg PO TID 06/21/17 01/18/18 2 Weeks Ago History ~01/04/18 Metoclopramide [Reglan] 10 mg PO QID PRN #30 tab 01/13/18 01/18/18 2 Weeks Ago Rx ~01/04/18 Review of Systems ROS: Stated complaint: CHEST PAIN Other details as noted in HPI Comment: All other systems reviewed and negative Objective - Constitutional Vitals: Vital Signs - 12hr 01/18/18 01/18/18 01/18/18 12:15 12:30 12:46 Temperature Pulse Rate 111 H 119 H 114 H Respiratory 16 17 16 Rate Blood Pressure 138/78 138/78 156/101 Blood Pressure [Left] O2 Sat by Pulse 100 98 100 Oximetry 01/18/18 01/18/18 01/18/18 13:00 13:16 13:30 Temperature Pulse Rate 107 H 116 H 110 H Respiratory 16 19 18 Rate Blood Pressure 132/109 155/83 155/83 Blood Pressure [Left] O2 Sat by Pulse 95 98 99 Oximetry 01/18/18 01/18/18 01/18/18 13:45 14:00 14:16 Temperature Pulse Rate 109 H 101 H 104 H Respiratory 18 18 14 Rate Blood Pressure 125/82 125/82 126/75 Blood Pressure [Left] O2 Sat by Pulse 100 98 97 Oximetry 01/18/18 01/18/18 01/18/18 14:30 14:46 15:00 Temperature Pulse Rate 101 H 122 H 111 H Respiratory 14 17 15 Rate Blood Pressure 126/75 126/75 126/75 Blood Pressure [Left] O2 Sat by Pulse 98 99 100 Oximetry 01/18/18 01/18/18 01/18/18 15:16 15:30 15:46 Temperature Pulse Rate 105 H 107 H 105 H Respiratory 15 15 16 Rate Blood Pressure 134/80 134/80 134/80 Blood Pressure [Left] O2 Sat by Pulse 97 97 98 Oximetry 01/18/18 01/18/18 01/18/18 16:00 16:16 16:30 Temperature Pulse Rate 117 H 114 H 123 H Respiratory 14 18 17 Rate Blood Pressure 134/80 122/76 122/76 Blood Pressure [Left] O2 Sat by Pulse 98 97 99 Oximetry 01/18/18 01/18/18 01/18/18 16:46 17:00 17:16 Temperature Pulse Rate 113 H 111 H 110 H Respiratory 19 17 17 Rate Blood Pressure 122/76 122/76 120/72 Blood Pressure [Left] O2 Sat by Pulse 98 98 98 Oximetry 01/18/18 01/18/18 01/18/18 17:30 17:46 18:00 Temperature Pulse Rate 113 H 119 H 121 H Respiratory 18 18 19 Rate Blood Pressure 120/72 120/72 120/72 Blood Pressure [Left] O2 Sat by Pulse 97 98 98 Oximetry 01/18/18 01/18/18 01/18/18 18:10 18:20 18:30 Temperature Pulse Rate 127 H 130 H 130 H Respiratory 18 30 H 18 Rate Blood Pressure 115/68 115/68 Blood Pressure [Left] O2 Sat by Pulse 96 97 98 Oximetry 01/18/18 01/18/18 01/18/18 18:40 18:50 19:00 Temperature Pulse Rate 124 H 118 H 124 H Respiratory 16 19 16 Rate Blood Pressure 115/68 115/68 115/68 Blood Pressure [Left] O2 Sat by Pulse 97 95 97 Oximetry 01/18/18 01/18/18 01/18/18 19:10 19:15 19:20 Temperature 99 F Pulse Rate 118 H 115 H Respiratory 18 Rate Blood Pressure 115/68 115/68 Blood Pressure 117/73 [Left] O2 Sat by Pulse 98 99 95 Oximetry 01/18/18 01/18/18 01/18/18 19:30 19:40 19:50 Temperature Pulse Rate 115 H 112 H 108 H Respiratory Rate Blood Pressure 117/73 117/73 117/73 Blood Pressure [Left] O2 Sat by Pulse 96 97 97 Oximetry 01/18/18 01/18/18 01/18/18 20:00 20:10 20:43 Temperature Pulse Rate 118 H 113 H 105 H Respiratory 20 Rate Blood Pressure 117/73 139/84 123/66 Blood Pressure [Left] O2 Sat by Pulse 98 97 98 Oximetry General appearance: Present: no acute distress, well-nourished - EENT Eyes: PERRL, EOM intact ENT: hearing intact, clear oral mucosa Ears: bilateral: normal - Neck Neck: supple, normal ROM - Respiratory Respiratory effort: normal Respiratory: bilateral: CTA - Breasts Breasts: normal - Cardiovascular Heart rate: 76 Rhythm: regular Heart Sounds: Present: S1 & S2. Absent: gallop, rub Extremities: no ischemia, pulses intact, No edema, normal color, Full ROM - Gastrointestinal General gastrointestinal: Present: soft, non-tender, non-distended, normal bowel sounds - Genitourinary Male genitourinary: normal - Integumentary Integumentary: clear, warm, dry - Musculoskeletal Musculoskeletal: strength equal bilaterally, left sided weakness (Gait -walks with a walker) - Neurologic Neurologic: CNII-XII intact, focal deficits, other - Psychiatric Psychiatric: appropriate mood/affect, intact judgment & insight, memory intact, depressed - Allied health notes Allied health notes reviewed: nursing, case management - Labs CBC & Chem 7: 01/18/18 10:24 01/18/18 10:24 Labs: Abnormal lab results 01/18/18 01/18/1818 Range/Units 10:24 10:24 10:31 WBC 11.2 H (4.5-11.0) K/mm3 RBC 5.11 H (3.65-5.03) M/mm3 [place] % (Auto) 8.7 H (0.0-7.3) % [place] # 1.0 H (0.0-0.8) K/mm3 Seg Neutrophils % 71.0 H (40.0-70.0) % Seg Neutrophils # 7.9 H (1.8-7.7) K/mm3 APTT 23.0 L (24.2-36.6) Sec. Chloride 95.5 L (98-107) mmol/L BUN 33 H (9-20) mg/dL Glucose 283 H (75-100) mg/dL POC Glucose (70-105) Troponin T 0.061 H (0.00-0.029) ng/mL HDL Cholesterol 35 L (40-59) mg/dL 01/18/18 01/18/18 01/18/18 Range/Units 10:43 13:25 16:30 WBC (4.5-11.0) K/mm3 RBC (3.65-5.03) M/mm3 [place] % (Auto) (0.0-7.3) % [place] # (0.0-0.8) K/mm3 Seg Neutrophils % (40.0-70.0) % Seg Neutrophils # (1.8-7.7) K/mm3 APTT (24.2-36.6) Sec. Chloride (98-107) mmol/L BUN (9-20) mg/dL Glucose (75-100) mg/dL POC Glucose 263 H (70-105) Troponin T 0.049 H 0.050 H (0.00-0.029) ng/mL HDL Cholesterol (40-59) mg/dL 01/18/18 Range/Units 20:44 WBC (4.5-11.0) K/mm3 RBC (3.65-5.03) M/mm3 [place] % (Auto) (0.0-7.3) % [place] # (0.0-0.8) K/mm3 Seg Neutrophils % (40.0-70.0) % Seg Neutrophils # (1.8-7.7) K/mm3 APTT (24.2-36.6) Sec. Chloride (98-107) mmol/L BUN (9-20) mg/dL Glucose (75-100) mg/dL POC Glucose 243 H (70-105) Troponin T (0.00-0.029) ng/mL HDL Cholesterol (40-59) mg/dL - Imaging and cardiology EKG: report reviewed
[2018-01-19] MEDS ORDERED: REGLAN PO PRN (00:15)
[2018-01-19] MEDS ORDERED: TYLENOL PO PRN (00:20)
[2018-01-19] MEDS ORDERED: ZOFRAN IV PRN (00:20)
[2018-01-19] MEDS ORDERED: AMBIEN PO PRN (00:20)
[2018-01-19] MEDS ORDERED: MORPHINE IV PRN (00:20)
[2018-01-19] MEDS ORDERED: PERCOCET 5/325 PO PRN (00:20)
[2018-01-19] MEDS ORDERED: SODIUM CHLORIDE FLUSH SYRINGE 10 ML IV PRN (00:20)
[2018-01-19] MEDS ORDERED: NACL 0.9% 1000 ML 1,000 ML IV SCH (01:00)
[2018-01-19] MEDS: PEPCID IV SCH ×3 (05:21→21:25)
--- NOTE | 2018-01-19 08:07 | History and Physical Report ---
History of Present Illness Date of examination: 01/18/18 Date of admission: 01/18/18 12:34 Chief complaint: Hiccups and Chest pain History of present illness: History of Present Illness: 52-year-old male with past medical history diabetes, CVA with residual left- sided weakness, GERD, CAD with stent 2, and hypertension presents to the hospital complaints of persistent hiccups 10 days. Patient was seen here on January 12 with the same complaints. He had a noncontrast CT abdomen and pelvis was unremarkable for acute findings other than left lymphadenopathy. He was discharged on Reglan. Despite taking this medication continues to have hiccups with associated nausea, vomiting, and by mouth intolerance. He is able to tolerate minimal fluids. Patient now states he is having reflux due to the vomiting which is described as a burning pain in the center of his chest. He denies abdominal pain, diarrhea, or fever. Patient has had intractable hiccups in the past. Similar episode of intractable hiccups 2 years ago in 2015 when he presented here also with NSTEMI requiring stent placement. He also had chest pain at that time. Past Medical History Previous Medical History?: Yes Hypertension: Yes CVA: Yes (LUE and LLE weakness) Heart Attack/AMI: Yes Diabetes: Yes GERD: Yes Surgical History Past Surgical History?: Yes Hx Coronary Stent: Yes (26 March 2016) Hx Pacemaker: No Additional Surgical History: tonsillectomy (long time ago) Social History Smoking Status: Never Smoker Substance Use Type: None -Medications Home Medications: Home Medications Medication Instructions Recorded Confirmed Last Taken Type Baclofen [Lioresal] 5 mg PO TID #45 tablet 09/16/15 01/18/18 2 Weeks Ago Rx ~01/04/18 Clopidogrel [Plavix] 75 mg PO QDAY #30 tablet 09/16/15 01/18/18 2 Weeks Ago Rx ~01/04/18 Glimepiride [Amaryl] 4 mg PO QDDIAB #30 tablet 09/16/15 01/18/18 2 Weeks Ago Rx ~01/04/18 amLODIPine [Norvasc] 10 mg PO QDAY #30 tablet 09/16/15 01/18/18 2 Weeks Ago Rx ~01/04/18 Aspirin [Aspirin TAB] 325 mg PO QDAY #30 tablet 03/27/16 01/18/18 2 Weeks Ago Rx ~01/04/18 Metoprolol [Lopressor TAB] 25 mg PO BID #60 tablet 03/27/16 01/18/18 2 Weeks Ago Rx ~01/04/18 Insulin Glargine [Lantus VIAL] 25 units SUB-Q QHS 06/21/17 01/18/18 2 Weeks Ago History ~01/04/18 Valsartan/Hydrochlorothiazide 1 each PO DAILY 06/21/17 01/18/18 2 Weeks Ago History [Valsartan-Hctz 160-12.5 mg Tab] ~01/04/18 cloNIDine [Catapres] 0.1 mg PO TID 06/21/17 01/18/18 2 Weeks Ago History ~01/04/18 Metoclopramide [Reglan] 10 mg PO QID PRN #30 tab 01/13/18 01/18/18 2 Weeks Ago Rx ~01/04/18 Review of Systems ROS: Stated complaint: CHEST PAIN Other details as noted in HPI Comment: All other systems reviewed and negative Past History Past Medical History: CAD, diabetes, hypertension, stroke Past Surgical History: tonsillectomy, Other (cardiac stents x 2 in 2016) Social history: , lives with family. denies: smoking, alcohol abuse Family history: hypertension Medications and Allergies Allergies Allergy/AdvReac Type Severity Reaction Status Date / Time vitamin K2 Allergy Intermediate Swelling Verified 03/21/16 18:50 shellfish derived Allergy Shortness Verified 08/19/15 22:46 of Breath Home Medications Medication Instructions Recorded Confirmed Last Taken Type Baclofen [Lioresal] 5 mg PO TID #45 tablet 09/16/15 01/18/18 2 Weeks Ago Rx ~01/04/18 Clopidogrel [Plavix] 75 mg PO QDAY #30 tablet 09/16/15 01/18/18 2 Weeks Ago Rx ~01/04/18 Glimepiride [Amaryl] 4 mg PO QDDIAB #30 tablet 09/16/15 01/18/18 2 Weeks Ago Rx ~01/04/18 amLODIPine [Norvasc] 10 mg PO QDAY #30 tablet 09/16/15 01/18/18 2 Weeks Ago Rx ~01/04/18 Aspirin [Aspirin TAB] 325 mg PO QDAY #30 tablet 03/27/16 01/18/18 2 Weeks Ago Rx ~01/04/18 Metoprolol [Lopressor TAB] 25 mg PO BID #60 tablet 03/27/16 01/18/18 2 Weeks Ago Rx ~01/04/18 Insulin Glargine [Lantus VIAL] 25 units SUB-Q QHS 06/21/17 01/18/18 2 Weeks Ago History ~01/04/18 Valsartan/Hydrochlorothiazide 1 each PO DAILY 06/21/17 01/18/18 2 Weeks Ago History [Valsartan-Hctz 160-12.5 mg Tab] ~01/04/18 cloNIDine [Catapres] 0.1 mg PO TID 06/21/17 01/18/18 2 Weeks Ago History ~01/04/18 Metoclopramide [Reglan] 10 mg PO QID PRN #30 tab 01/13/18 01/18/18 2 Weeks Ago Rx ~01/04/18 Active Meds: Active Medications Acetaminophen (Tylenol) 650 mg PO Q4H PRN PRN Reason: Pain MILD(1-3)/Fever >100.5/VACA Amlodipine Besylate (Norvasc) 10 mg PO QDAY [facility] Aspirin (Aspirin) 325 mg PO QDAY [facility] Baclofen (Lioresal) 5 mg PO TID [facility] Clonidine HCl (Catapres) 0.1 mg PO TID [facility] Clopidogrel Bisulfate (Plavix) 75 mg PO QDAY [facility] Famotidine (Pepcid) 20 mg IV BID [facility] Last Admin: 01/19/18 05:21 Dose: Not Given Glimepiride (Amaryl) 4 mg PO QDDIAB [facility] Hydrochlorothiazide (Hctz) 12.5 mg PO QDAY@0800 [facility] Sodium Chloride (Nacl 0.9% 1000 Ml) 1,000 mls @ 75 mls/hr IV DIRECT [facility] Last Admin: 01/19/18 05:49 Dose: 75 mls/hr Chlorpromazine HCl 10 mg/ (Sodium Chloride) 50.4 mls @ 100 mls/hr IV Q4H PRN PRN Reason: Hiccups Stop: 01/23/18 23:59 Insulin Glargine (Lantus) 25 units SUB-Q QHS [facility] Insulin Human Lispro (Humalog) 0 unit SUB-Q ACHS [facility]; Protocol Metoclopramide HCl (Reglan) 10 mg PO QID PRN PRN Reason: Nausea Metoprolol Tartrate (Lopressor) 25 mg PO BID [facility] Morphine Sulfate (Morphine) 2 mg IV Q4H PRN PRN Reason: Pain, Moderate (4-6) Ondansetron HCl (Zofran) 4 mg IV Q8H PRN PRN Reason: Nausea And Vomiting Oxycodone/Acetaminophen (Percocet 5/325) 1 tab PO Q6H PRN PRN Reason: Pain, Moderate (4-6) Sodium Chloride (Sodium Chloride Flush Syringe 10 Ml) 10 ml IV PRN PRN PRN Reason: LINE FLUSH Sodium Chloride (Sodium Chloride Flush Syringe 10 Ml) 10 ml IV BID [facility] Valsartan (Diovan) 160 mg PO DAILY@0800 [facility] Zolpidem Tartrate (Ambien) 5 mg PO QHS PRN PRN Reason: Insomnia Exam - Constitutional Vitals: Temp Pulse Resp BP Pulse Ox 98.6 F 105 H 18 137/72 96 01/19/18 04:37 01/19/18 04:37 01/19/18 04:37 01/19/18 04:37 01/19/18 04:37 General appearance: Present: no acute distress, well-nourished - EENT Eyes: Present: PERRL ENT: hearing intact, clear oral mucosa - Neck Neck: Present: supple, normal ROM - Respiratory Respiratory effort: normal Respiratory: bilateral: CTA - Cardiovascular Heart rate: 78 Rhythm: regular Heart Sounds: Present: S1 & S2. Absent: rub, click - Extremities Extremities: no ischemia, pulses intact, pulses symmetrical, No edema Peripheral Pulses: within normal limits - Abdominal General gastrointestinal: Present: soft, non-tender, non-distended, normal bowel sounds Male genitourinary: Present: normal - Integumentary Integumentary: Present: clear, warm, dry - Musculoskeletal Musculoskeletal: gait normal, strength equal bilaterally - Psychiatric Psychiatric: appropriate mood/affect, intact judgment & insight - Neurologic Neurologic: CNII-XII intact, moves all extremities - Allied Health Allied health notes reviewed: nursing, case management Results - Labs CBC & Chem 7: 01/18/18 10:24 01/18/18 10:24 Labs: Laboratory Last Values WBC 11.2 K/mm3 (4.5-11.0) H 01/18/18 10:24 RBC 5.11 M/mm3 (3.65-5.03) H 01/18/18 10:24 Hgb 15.2 gm/dl (11.8-15.2) 01/18/18 10:24 Hct 45.1 % (35.5-45.6) 01/18/18 10:24 MCV 88 fl (84-94) 01/18/18 10:24 MCH 30 pg (28-32) 01/18/18 10:24 MCHC 34 % (32-34) 01/18/18 10:24 RDW 13.8 % (13.2-15.2) 01/18/18 10:24 Plt Count 248 K/mm3 (140-440) 01/18/18 10:24 Lymph % (Auto) 19.7 % (13.4-35.0) 01/18/18 10:24 [place] % (Auto) 8.7 % (0.0-7.3) H 01/18/18 10:24 Eos % (Auto) 0.1 % (0.0-4.3) 01/18/18 10:24 Baso % (Auto) 0.5 % (0.0-1.8) 01/18/18 10:24 Lymph # 2.2 K/mm3 (1.2-5.4) 01/18/18 10:24 [place] # 1.0 K/mm3 (0.0-0.8) H 01/18/18 10:24 Eos # 0.0 K/mm3 (0.0-0.4) 01/18/18 10:24 Baso # 0.1 K/mm3 (0.0-0.1) 01/18/18 10:24 Seg Neutrophils % 71.0 % (40.0-70.0) H 01/18/18 10:24 Seg Neutrophils # 7.9 K/mm3 (1.8-7.7) H 01/18/18 10:24 PT 14.9 Sec. (12.2-14.9) 01/18/18 10:31 INR 1.12 (0.87-1.13) 01/18/18 10:31 APTT 23.0 Sec. (24.2-36.6) L 01/18/18 10:31 Sodium 137 mmol/L (137-145) 01/18/18 10:24 Potassium 3.9 mmol/L (3.6-5.0) 01/18/18 10:24 Chloride 95.5 mmol/L (98-107) L 01/18/18 10:24 Carbon Dioxide 27 mmol/L (22-30) 01/18/18 10:24 Anion Gap 18 mmol/L 01/18/18 10:24 BUN 33 mg/dL (9-20) H 01/18/18 10:24 Creatinine 1.4 mg/dL (0.8-1.5) 01/18/18 10:24 Estimated GFR > 60 ml/min 01/18/18 10:24 BUN/Creatinine Ratio 24 % 01/18/18 10:24 Glucose 283 mg/dL (75-100) H 01/18/18 10:24 POC Glucose 205 (70-105) H 01/19/18 05:57 Hemoglobin A1c 10.7 % (4-6) H 01/19/18 00:45 Calcium 9.4 mg/dL (8.4-10.2) 01/18/18 10:24 Total Bilirubin 1.00 mg/dL (0.1-1.2) 01/18/18 10:31 Direct Bilirubin < 0.2 mg/dL (0-0.2) 01/18/18 10:31 AST 23 units/L (5-40) 01/18/18 10:31 ALT 25 units/L (7-56) 01/18/18 10:31 Alkaline Phosphatase 98 units/L (35-129) 01/18/18 10:31 Troponin T 0.062 ng/mL (0.00-0.029) H D 01/19/18 00:45 Total Protein 7.3 g/dL (6.3-8.2) 01/18/18 10:31 Albumin 3.9 g/dL (3.9-5) 01/18/18 10:31 Albumin/Globulin Ratio 1.1 % 01/18/18 10:31 Triglycerides 149 mg/dL (2-149) 01/18/18 10:24 Cholesterol 158 mg/dL (50-199) 01/18/18 10:24 LDL Cholesterol Direct 94 mg/dL (50-130) 01/18/18 10:24 HDL Cholesterol 35 mg/dL (40-59) L 01/18/18 10:24 Cholesterol/HDL Ratio 4.51 % 01/18/18 10:24 Lipase 15 units/L (13-60) 01/18/18 10:31 Short CBC 01/18/18 Range/Units 10:24 WBC 11.2 H (4.5-11.0) K/mm3 Hgb 15.2 (11.8-15.2) gm/dl Hct 45.1 (35.5-45.6) % Plt Count 248 (140-440) K/mm3 BMP 01/18/18 10:24 Sodium 137 Potassium 3.9 Chloride 95.5 L Carbon Dioxide 27 BUN 33 H Creatinine 1.4 Glucose 283 H Calcium 9.4 Cardiac Enzymes 01/18/18 01/18/18 01/18/18 Range/Units 10:24 13:25 16:30 Troponin T 0.061 H 0.049 H 0.050 H (0.00-0.029) ng/mL 01/19/18 01/19/18 Range/Units 00:45 06:57 Troponin T 0.062 H D 0.071 H (0.00-0.029) ng/mL Liver Function 01/18/18 Range/Units 10:31 Total Bilirubin 1.00 (0.1-1.2) mg/dL Direct Bilirubin < 0.2 (0-0.2) mg/dL AST 23 (5-40) units/L ALT 25 (7-56) units/L Alkaline Phosphatase 98 (35-129) units/L Albumin 3.9 (3.9-5) g/dL - Imaging and Cardiology EKG: report reviewed Assessment and Plan - Patient Problems (1) Acute chest pain Current Visit: No Status: Acute Plan to address problem: Chest pain work up Lexiscan in ANM (2) CAD (coronary artery disease) Current Visit: Yes Status: Chronic Qualifiers: Coronary Disease-Associated Artery/Lesion type: [place] artery [place] vs. transplanted heart: [place] heart Plan to address problem: On Plavix (3) Diabetes Current Visit: Yes Status: Chronic Qualifiers: Diabetes mellitus type: type 2 Plan to address problem: Cont Insulin and coverage (4) Intractable hiccups Current Visit: Yes Status: Acute Plan to address problem: Thorazine prn (5) Left hemiparesis Current Visit: Yes Status: Chronic Plan to address problem: Supportive/Home PT (6) HTN (hypertension) Current Visit: Yes Status: Chronic Qualifiers: Hypertension type: essential hypertension Qualified Code(s): I10 - Essential (primary) hypertension Plan to address problem: Cont antihypertensive (7) DVT prophylaxis Current Visit: Yes Status: Acute Plan to address problem: On Lovenox
[2018-01-19] MEDS ORDERED: NACL 0.9% IV PRN (10:00)
[2018-01-19] MEDS ORDERED: THORAZINE IV PRN (10:00)
[2018-01-19] MEDS: SODIUM CHLORIDE FLUSH SYRINGE 10 ML IV SCH ×2 (10:00→21:38)
[2018-01-19] MEDS: NACL 0.9% 1000 ML 1,000 ML IV SCH (10:20)
--- NOTE | 2018-01-19 10:29 | Progress Note ---
Assessment and Plan Atypical chest pain after intractable nausea and vomiting No ECG changes when compared to previous Small reversible apical and mid anteroseptal andsmall reversible basal inferolateral wall defects, as well as, a small fixed apical inferior defect, LVEF 40% by MPI Hx of CAD s/p PCI to proximal LAD and mid RCA 03/2016 Ischemic cardiomyopathy History of CVA Systemic Hypertension Type II DM Mild elevated troponin Recommendations: Work-up for intractable nausea and vomiting per GI and primary team. Subjective Date of service: 01/19/18 Interval history: Hiccups with nausea vomiting continues. Objective Vital Signs Temp Pulse Resp BP BP Pulse Ox 01/19/18 10:10 98.6 F 107 H 16 152/83 0 L 01/19/18 08:03 98.2 F 96 H 20 138/77 97 01/19/18 04:37 98.6 F 105 H 18 137/72 96 01/18/18 23:48 98.6 F 113 H 18 139/78 96 01/18/18 21:00 104 H 01/18/18 20:43 105 H 20 123/66 98 01/18/18 20:10 113 H 139/84 97 01/18/18 20:00 118 H 117/73 98 01/18/18 19:50 108 H 117/73 97 01/18/18 19:40 112 H 117/73 97 01/18/18 19:30 115 H 117/73 96 01/18/18 19:20 115/68 95 01/18/18 19:15 99 F 115 H 18 117/73 99 01/18/18 19:10 118 H 115/68 98 01/18/18 19:00 124 H 16 115/68 97 01/18/18 18:50 118 H 19 115/68 95 01/18/18 18:40 124 H 16 115/68 97 01/18/18 18:30 130 H 18 115/68 98 01/18/18 18:20 130 H 30 H 97 01/18/18 18:10 127 H 18 115/68 96 01/18/18 18:00 121 H 19 120/72 98 01/18/18 17:46 119 H 18 120/72 98 01/18/18 17:30 113 H 18 120/72 97 01/18/18 17:16 110 H 17 120/72 98 01/18/18 17:00 111 H 17 122/76 98 01/18/18 16:46 113 H 19 122/76 98 01/18/18 16:30 123 H 17 122/76 99 01/18/18 16:16 114 H 18 122/76 97 01/18/18 16:00 117 H 14 134/80 98 01/18/18 15:46 105 H 16 134/80 98 01/18/18 15:30 107 H 15 134/80 97 01/18/18 15:16 105 H 15 134/80 97 01/18/18 15:00 111 H 15 126/75 100 01/18/18 14:46 122 H 17 126/75 99 01/18/18 14:30 101 H 14 126/75 98 01/18/18 14:16 104 H 14 126/75 97 01/18/18 14:00 101 H 18 125/82 98 01/18/18 13:45 109 H 18 125/82 100 01/18/18 13:30 110 H 18 155/83 99 01/18/18 13:16 116 H 19 155/83 98 01/18/18 13:00 107 H 16 132/109 95 01/18/18 12:46 114 H 16 156/101 100 01/18/18 12:30 119 H 17 138/78 98 01/18/18 12:15 111 H 16 138/78 100 01/18/18 12:00 110 H 12 139/88 100 01/18/18 11:46 105 H 15 131/82 99 01/18/18 11:36 13 - Physical Examination General: No Apparent Distress HEENT: Positive: PERRL Cardiac: Positive: Reg Rate and Rhythm - Labs and Meds Cardiac Enzymes 01/18/18 Range/Units 10:31 AST 23 (5-40) units/L Coagulation 01/18/18 Range/Units 10:31 PT 14.9 (12.2-14.9) Sec. INR 1.12 (0.87-1.13) APTT 23.0 L (24.2-36.6) Sec. Lipids 01/18/18 Range/Units 10:24 Triglycerides 149 (2-149) mg/dL Cholesterol 158 (50-199) mg/dL HDL Cholesterol 35 L (40-59) mg/dL Cholesterol/HDL Ratio 4.51 % CBC 01/18/18 Range/Units 10:24 WBC 11.2 H (4.5-11.0) K/mm3 RBC 5.11 H (3.65-5.03) M/mm3 Hgb 15.2 (11.8-15.2) gm/dl Hct 45.1 (35.5-45.6) % Plt Count 248 (140-440) K/mm3 Lymph # 2.2 (1.2-5.4) K/mm3 [place] # 1.0 H (0.0-0.8) K/mm3 Eos # 0.0 (0.0-0.4) K/mm3 Baso # 0.1 (0.0-0.1) K/mm3 Comprehensive Metabolic Panel 01/18/18 01/18/18 Range/Units 10:24 10:31 Sodium 137 (137-145) mmol/L Potassium 3.9 (3.6-5.0) mmol/L Chloride 95.5 L (98-107) mmol/L Carbon Dioxide 27 (22-30) mmol/L BUN 33 H (9-20) mg/dL Creatinine 1.4 (0.8-1.5) mg/dL Glucose 283 H (75-100) mg/dL Calcium 9.4 (8.4-10.2) mg/dL Direct Bilirubin < 0.2 (0-0.2) mg/dL AST 23 (5-40) units/L ALT 25 (7-56) units/L Alkaline Phosphatase 98 (35-129) units/L Total Protein 7.3 (6.3-8.2) g/dL Albumin 3.9 (3.9-5) g/dL - Imaging and Cardiology EKG: report reviewed
[2018-01-19] MEDS ORDERED: VERSED ONE (10:55)
[2018-01-19] MEDS ORDERED: DIPRIVAN 10 MG/ML IV ONE ×2 (10:56)
[2018-01-19] MEDS ORDERED: WATER FOR IRRIG STERILE IR ONE (10:59)
--- NOTE | 2018-01-19 11:32 | Operative Report ---
Operative Report Operative Report: Esophagogastroduodenoscopy Procedure Note with Biopsies Date of procedure: 01/19/2018 Endoscopist: Froylan Alex Pre-op diagnosis: intractable hiccups, gerd, abdominal pain Post-op diagnosis: severe ulcerative esophagitis from mid-lower esophagus Anesthesia: MAC Complications: No immediate complications Estimated blood loss: minimal Procedure: After consent was obtained, the patient was placed in the left lateral decubitus position. The fujinon endoscope was inserted into the patient 's mouth under direct vision, and advanced into the 2nd portion of the duodenum without difficulty. The patient tolerated the procedure well. The views of the mucosa were good. Patient's vital signs were monitored continuously throughout the procedure. Findings: Severe ulcerative esophagitis extending from the mid to the lower esophagus. Biopsies were obtained. There was a small hiatal hernia. The stomach appeared normal. The duodenum appeared normal. Impression: 1. Severe ulcerative esophagitis. Biopsied. Recommendations: -PPI BID dosing -avoid nsaid medications -consider gastric emptying study given degree of esophagitis if symptoms persists -follow-up pathology -repeat upper endoscopy in 2-3 months to assess for healing
--- NOTE | 2018-01-19 11:42 | Anesthesia Consultation ---
Anesthesia Consult and Med Hx Date of service: 01/19/18 - Airway Anesthetic Teeth Evaluation: Good ROM Head & Neck: Adequate Mental/Hyoid Distance: Adequate Mallampati Class: Class III Intubation Access Assessment: Possibly Difficult - Pulmonary Exam CTA: Yes - Cardiac Exam Cardiac Exam: RRR - Pre-Operative Health Status ASA Pre-Surgery Classification: ASA3 Proposed Anesthetic Plan: MAC - Pre-Anesthesia Comment Pre-Anesthesia Comments: hx nausea vomitting. negative ACS per cardiology - Cardiovascular System Hx Hypertension: Yes Hx Coronary Artery Disease: Yes Hx Heart Attack/AMI: Yes Hx Angina: No Hx Percutaneous Transluminal Coronary Angioplasty (PTCA): Yes (2015) - Central Nervous System CVA: Yes (left weakness) - Endocrine Hx Non-Insulin Dependent Diabetes: Yes
--- NOTE | 2018-01-19 11:43 | Anesthesia Day of Surgery ---
Anesthesia Day of Surgery - Day of Surgery Patient Examined: Yes Patient H&P Reviewed: Yes Patient is NPO: Yes
[2018-01-19] MEDS: LIORESAL PO SCH ×3 (14:00→21:25)
[2018-01-19] MEDS: CATAPRES PO SCH ×3 (14:00→21:26)
--- NOTE | 2018-01-19 15:30 | Progress Note ---
Assessment and Plan Assessment and plan: 52-year-old male with past medical history diabetes, CVA with residual left- sided weakness, GERD, CAD with stent 2, and hypertension presents to the hospital complaints of persistent hiccups 10 days. Patient was seen here on January 12 with the same complaints. He had a noncontrast CT abdomen and pelvis was unremarkable for acute findings other than left lymphadenopathy. He was discharged on Reglan. Despite taking this medication continues to have hiccups with associated nausea, vomiting, and by mouth intolerance. He is able to tolerate minimal fluids. Patient now states he is having reflux due to the vomiting which is described as a burning pain in the center of his chest. He denies abdominal pain, diarrhea, or fever. Patient has had intractable hiccups in the past. Similar episode of intractable hiccups 2 years ago in 2015 when he presented here also with NSTEMI requiring stent placement. He also had chest pain at that time. Recurrent hiccup, nausea and vomiting - Patient is on Thorazine - GI consulted and did EGD and showed severe esophagitis - Patient is on IV pantoprazole Chest pain/ epigastric pain History of CAD status post stent - Cardiac enzymes slight elevation - Cardiology consult appreciated - Stress test done Hypertension - Continue medications History of CVA - Stable - On aspirin and Plavix Diabetes mellitus with hyperglycemia - On glimpride and insulin regimen DVT prophylaxis - On lovenox Disposition - Continue inpatient care History Interval history: Patient was seen and evaluated at the bedside this morning, patient had episode of vomiting by the time i saw him. Hospitalist Physical - Physical exam Narrative exam: Not in cardiopulmonary distress. The patient is obese. Vital signs as documented. Head exam is unremarkable. No scleral icterus . Neck is without jugular venous distension, thyromegaly, or carotid bruits. Lungs are clear to auscultation. Cardiac exam reveals regular rate and Rhythm. First and second heart sounds normal. No murmurs, rubs or gallops. Abdominal exam reveals normal bowel sounds, no masses, no organomegaly and no aortic enlargement. Extremities are nonedematous and both femoral and pedal pulses are normal. TOLL COLLECTOR: Alert and oriented 3. Mild right-sided weakness. - Constitutional Vitals: Temp Pulse Resp BP Pulse Ox 98.6 F 121 H 20 150/96 97 01/19/18 12:30 01/19/18 12:30 01/19/18 12:30 01/19/18 12:30 01/19/18 12:30 General appearance: Present: no acute distress, well-nourished Results - Labs CBC & Chem 7: 01/18/18 10:24 01/18/18 10:24 Labs: Laboratory Last Values WBC 11.2 K/mm3 (4.5-11.0) H 01/18/18 10:24 RBC 5.11 M/mm3 (3.65-5.03) H 01/18/18 10:24 Hgb 15.2 gm/dl (11.8-15.2) 01/18/18 10:24 Hct 45.1 % (35.5-45.6) 01/18/18 10:24 MCV 88 fl (84-94) 01/18/18 10:24 MCH 30 pg (28-32) 01/18/18 10:24 MCHC 34 % (32-34) 01/18/18 10:24 RDW 13.8 % (13.2-15.2) 01/18/18 10:24 Plt Count 248 K/mm3 (140-440) 01/18/18 10:24 Lymph % (Auto) 19.7 % (13.4-35.0) 01/18/18 10:24 [place] % (Auto) 8.7 % (0.0-7.3) H 01/18/18 10:24 Eos % (Auto) 0.1 % (0.0-4.3) 01/18/18 10:24 Baso % (Auto) 0.5 % (0.0-1.8) 01/18/18 10:24 Lymph # 2.2 K/mm3 (1.2-5.4) 01/18/18 10:24 [place] # 1.0 K/mm3 (0.0-0.8) H 01/18/18 10:24 Eos # 0.0 K/mm3 (0.0-0.4) 01/18/18 10:24 Baso # 0.1 K/mm3 (0.0-0.1) 01/18/18 10:24 Seg Neutrophils % 71.0 % (40.0-70.0) H 01/18/18 10:24 Seg Neutrophils # 7.9 K/mm3 (1.8-7.7) H 01/18/18 10:24 PT 14.9 Sec. (12.2-14.9) 01/18/18 10:31 INR 1.12 (0.87-1.13) 01/18/18 10:31 APTT 23.0 Sec. (24.2-36.6) L 01/18/18 10:31 Sodium 137 mmol/L (137-145) 01/18/18 10:24 Potassium 3.9 mmol/L (3.6-5.0) 01/18/18 10:24 Chloride 95.5 mmol/L (98-107) L 01/18/18 10:24 Carbon Dioxide 27 mmol/L (22-30) 01/18/18 10:24 Anion Gap 18 mmol/L 01/18/18 10:24 BUN 33 mg/dL (9-20) H 01/18/18 10:24 Creatinine 1.4 mg/dL (0.8-1.5) 01/18/18 10:24 Estimated GFR > 60 ml/min 01/18/18 10:24 BUN/Creatinine Ratio 24 % 01/18/18 10:24 Glucose 283 mg/dL (75-100) H 01/18/18 10:24 POC Glucose 165 (70-105) H 01/19/18 12:28 Hemoglobin A1c 10.7 % (4-6) H 01/19/18 00:45 Calcium 9.4 mg/dL (8.4-10.2) 01/18/18 10:24 Total Bilirubin 1.00 mg/dL (0.1-1.2) 01/18/18 10:31 Direct Bilirubin < 0.2 mg/dL (0-0.2) 01/18/18 10:31 AST 23 units/L (5-40) 01/18/18 10:31 ALT 25 units/L (7-56) 01/18/18 10:31 Alkaline Phosphatase 98 units/L (35-129) 01/18/18 10:31 Troponin T 0.071 ng/mL (0.00-0.029) H 01/19/18 06:57 Total Protein 7.3 g/dL (6.3-8.2) 01/18/18 10:31 Albumin 3.9 g/dL (3.9-5) 01/18/18 10:31 Albumin/Globulin Ratio 1.1 % 01/18/18 10:31 Triglycerides 149 mg/dL (2-149) 01/18/18 10:24 Cholesterol 158 mg/dL (50-199) 01/18/18 10:24 LDL Cholesterol Direct 94 mg/dL (50-130) 01/18/18 10:24 HDL Cholesterol 35 mg/dL (40-59) L 01/18/18 10:24 Cholesterol/HDL Ratio 4.51 % 01/18/18 10:24 Lipase 15 units/L (13-60) 01/18/18 10:31
[2018-01-19] MEDS: HumaLOG SUB-Q SCH ×3 (16:30→21:36)
[2018-01-19] MEDS: LOPRESSOR PO SCH ×2 (17:12→21:26)
[2018-01-19] MEDS: HCTZ PO SCH (17:13)
[2018-01-19] MEDS: ASPIRIN PO SCH (17:13)
[2018-01-19] MEDS: DIOVAN PO SCH (17:13)
[2018-01-19] MEDS: AMARYL PO SCH (17:13)
[2018-01-19] MEDS: PLAVIX PO SCH (17:15)
[2018-01-19] MEDS: NORVASC PO SCH (17:15)
[2018-01-19] MEDS: LANTUS SUB-Q SCH (21:26)
[2018-01-19] MEDS: LOVENOX SUB-Q SCH (21:27)
[2018-01-20] MEDS: NACL 0.9% 1000 ML 1,000 ML IV SCH (07:01)
[2018-01-20 07:27] LABS: Alanine Aminotransferase 25 units/L (7-56); Albumin 3.3 g/dL (3.9-5); BUN/Creatinine Ratio 12; Blood Urea Nitrogen 15 mg/dL (9-20); Calcium 8.8 mg/dL (8.4-10.2); Hemolysis Index 4
[2018-01-20] MEDS: LIORESAL PO SCH ×3 (08:00→22:02)
[2018-01-20] MEDS: HCTZ PO SCH (08:00)
[2018-01-20] MEDS: AMARYL PO SCH (08:00)
[2018-01-20] MEDS: CATAPRES PO SCH ×3 (08:00→22:03)
[2018-01-20] MEDS: DIOVAN PO SCH (08:00)
[2018-01-20 08:04] LABS: Basophils % (Auto) 0.3 % (0.0-1.8); Eosinophils # (Auto) 0.1 K/mm3 (0.0-0.4); Hematocrit 39.8 % (35.5-45.6); Hemoglobin 13.3 gm/dl (11.8-15.2); Lymphocytes # (Auto) 2.3 K/mm3 (1.2-5.4); Lymphocytes % (Auto) 22.7 % (13.4-35.0); Mean Corpuscular HGB Conc 34 % (32-34); Mean Corpuscular Hemoglobin 30 pg (28-32); Mean Corpuscular Volume 90 fl (84-94); Monocytes # (Auto) 0.9 K/mm3 (0.0-0.8); Monocytes % (Auto) 9.2 % (0.0-7.3); Platelet Count 187 K/mm3 (140-440); Red Blood Count 4.43 M/mm3 (3.65-5.03); Red Cell Distribution Width 13.8 % (13.2-15.2)
[2018-01-20] MEDS: HumaLOG SUB-Q SCH ×4 (08:30→22:06)
--- NOTE | 2018-01-20 09:59 | Progress Note ---
Assessment and Plan Atypical chest pain after intractable nausea and vomiting No ECG changes when compared to previous Small reversible apical and mid anteroseptal andsmall reversible basal inferolateral wall defects, as well as, a small fixed apical inferior defect, LVEF 40% by MPI Hx of CAD s/p PCI to proximal LAD and mid RCA 03/2016 Ischemic cardiomyopathy History of CVA Systemic Hypertension Type II DM Mild elevated troponin Recommend: Continue beta maude therapy for suppression of asymptomatic burst of NSVT. Continue medical therapy for coronary artery disease and ischemic cardiomyopathy. Subjective Date of service: 01/20/18 Interval history: Patient has no cardiac complaints. 10 beat NSVT noted on telemetry overnight. Patient remained asymptomatic. Objective Vital Signs Temp Pulse Resp BP BP Pulse Ox 01/20/18 08:18 98.4 F 78 20 122/69 97 01/20/18 05:41 88 01/20/18 04:18 98.0 F 79 18 122/65 97 01/20/18 01:00 88 96 01/20/18 00:59 98.3 F 18 126/80 01/19/18 21:00 74 01/19/18 19:55 98.6 F 104 H 18 143/75 96 01/19/18 19:54 98.6 F 103 H 18 143/75 96 01/19/18 17:25 97.9 F 76 18 128/76 97 01/19/18 16:04 98.4 F 102 H 20 152/85 98 01/19/18 12:30 98.6 F 124 H 20 150/96 97 01/19/18 11:57 104 H 19 161/74 100 01/19/18 11:42 106 H 14 139/72 100 01/19/18 11:27 98.6 F 122 H 28 H 114/65 99 01/19/18 10:10 98.6 F 107 H 16 152/83 0 L - Physical Examination General: No Apparent Distress HEENT: Positive: PERRL Cardiac: Positive: Reg Rate and Rhythm Lungs: Positive: Decreased Breath Sounds Neuro: Positive: Grossly Intact - Labs and Meds Cardiac Enzymes 01/20/18 Range/Units 06:52 AST 21 (5-40) units/L CBC 01/20/18 Range/Units 06:52 WBC 10.1 (4.5-11.0) K/mm3 RBC 4.43 (3.65-5.03) M/mm3 Hgb 13.3 (11.8-15.2) gm/dl Hct 39.8 (35.5-45.6) % Plt Count 187 (140-440) K/mm3 Lymph # 2.3 (1.2-5.4) K/mm3 [place] # 0.9 H (0.0-0.8) K/mm3 Eos # 0.1 (0.0-0.4) K/mm3 Baso # 0.0 (0.0-0.1) K/mm3 Comprehensive Metabolic Panel 01/20/18 Range/Units 06:52 Sodium 144 D (137-145) mmol/L Potassium 3.7 (3.6-5.0) mmol/L Chloride 103.6 (98-107) mmol/L Carbon Dioxide 30 (22-30) mmol/L BUN 15 (9-20) mg/dL Creatinine 1.3 (0.8-1.5) mg/dL Glucose 101 H (75-100) mg/dL Calcium 8.8 (8.4-10.2) mg/dL AST 21 (5-40) units/L ALT 25 (7-56) units/L Alkaline Phosphatase 80 (35-129) units/L Total Protein 6.2 L (6.3-8.2) g/dL Albumin 3.3 L (3.9-5) g/dL
[2018-01-20] MEDS: PLAVIX PO SCH (12:00)
[2018-01-20] MEDS: PROTONIX PO SCH ×2 (12:00→22:03)
[2018-01-20] MEDS: NORVASC PO SCH (12:00)
[2018-01-20] MEDS: ASPIRIN PO SCH (12:00)
[2018-01-20] MEDS: LOPRESSOR PO SCH ×2 (12:00→22:03)
--- NOTE | 2018-01-20 12:13 | Gastroenterology Progress Note ---
<BILL QUISPE - Last Filed: 01/20/18 12:14> Assessment and Plan 1.intractable hiccups 2.N/V 3.GERD 4.atypical CP (mildly elevated troponin but EKG unchanged and no clinical evidence of ACS; cardiology following with no further workup recommended) -chest x-ray and abd CT 01/12 unremarkable -s/p EGD yesterday that revealed severe ulcerative esophagitis and small hiatal hernia -bx results pending -f/u in clinic -clinically, patient reports hiccups and N/V have resolved but c/o pain with swallowing. No abd pain. -start on carafate -continue PPI BID -okay to start on clear liquid-advance as tolerated -consider GES given degree of esophagitis if symptoms persists -recommend repeat upper endoscopy in 2-3 months to assess healing -continue supportive care -will follow Subjective Date of service: 01/20/18 Principal diagnosis: intractable hiccups, vomiting Interval history: Patient resting in bed w/o acute distress. Reports pain with swallowing but states hiccups and N/V have resolved. Denies abd pain. Objective - Constitutional Vitals: Temp Pulse Resp BP Pulse Ox 98.4 F 78 20 122/69 97 01/20/18 08:18 01/20/18 08:18 01/20/18 08:18 01/20/18 08:18 01/20/18 08:18 General appearance: no acute distress - Respiratory Respiratory: bilateral: CTA - Cardiovascular Rhythm: regular Heart Sounds: Present: S1 & S2 - Gastrointestinal General gastrointestinal: Present: soft, non-tender, non-distended, normal bowel sounds - Neurologic Neurological: alert and oriented x3 - Labs CBC & Chem 7: 01/20/18 06:52 01/20/18 06:52 Labs: Laboratory Results - last 24 hr 01/19/18 01/19/18 01/19/18 12:28 16:01 20:52 WBC RBC Hgb Hct MCV MCH MCHC RDW Plt Count Lymph % (Auto) [place] % (Auto) Eos % (Auto) Baso % (Auto) Lymph # [place] # Eos # Baso # Seg Neutrophils % Seg Neutrophils # Sodium Potassium Chloride Carbon Dioxide Anion Gap BUN Creatinine Estimated GFR BUN/Creatinine Ratio Glucose POC Glucose 165 H 237 H 229 H Calcium Total Bilirubin AST ALT Alkaline Phosphatase Total Protein Albumin Albumin/Globulin Ratio 01/20/18 01/20/18 01/20/18 06:31 06:52 06:52 WBC 10.1 RBC 4.43 Hgb 13.3 Hct 39.8 MCV 90 MCH 30 MCHC 34 RDW 13.8 Plt Count 187 Lymph % (Auto) 22.7 [place] % (Auto) 9.2 H Eos % (Auto) 1.0 Baso % (Auto) 0.3 Lymph # 2.3 [place] # 0.9 H Eos # 0.1 Baso # 0.0 Seg Neutrophils % 66.8 Seg Neutrophils # 6.8 Sodium 144 D Potassium 3.7 Chloride 103.6 Carbon Dioxide 30 Anion Gap 14 BUN 15 Creatinine 1.3 Estimated GFR > 60 BUN/Creatinine Ratio 12 Glucose 101 H POC Glucose 93 Calcium 8.8 Total Bilirubin 0.90 AST 21 ALT 25 Alkaline Phosphatase 80 Total Protein 6.2 L Albumin 3.3 L Albumin/Globulin Ratio 1.1 <TAHIR SHEA - Last Filed: 01/20/18 13:09> Assessment and Plan Pt seen and examined. Agree with note above. c/o pain with swallowing yesterday; hiccups have improved. s/p egd with severe ulcerative esophagitis s/ p biopsies. cont PPI BID dosing. can add carafate 3-4 times per day. will need repeat endoscopy in 2-3 months to assess for healing, r/o underlying BE or other path. will sign off, please call as needed or with questions. Follow-up in GI clinic in 2-3 weeks. Objective - Constitutional Vitals: Temp Pulse Resp BP Pulse Ox 98.0 F 98 H 20 127/93 98 01/20/18 12:11 01/20/18 12:11 01/20/18 12:11 01/20/18 12:11 01/20/18 12:11 - Labs CBC & Chem 7: 01/20/18 06:52 01/20/18 06:52 Labs: Laboratory Results - last 24 hr 01/19/18 01/19/18 01/19/18 12:28 16:01 20:52 WBC RBC Hgb Hct MCV MCH MCHC RDW Plt Count Lymph % (Auto) [place] % (Auto) Eos % (Auto) Baso % (Auto) Lymph # [place] # Eos # Baso # Seg Neutrophils % Seg Neutrophils # Sodium Potassium Chloride Carbon Dioxide Anion Gap BUN Creatinine Estimated GFR BUN/Creatinine Ratio Glucose POC Glucose 165 H 237 H 229 H Calcium Total Bilirubin AST ALT Alkaline Phosphatase Total Protein Albumin Albumin/Globulin Ratio 01/20/18 01/20/18 01/20/18 06:31 06:52 06:52 WBC 10.1 RBC 4.43 Hgb 13.3 Hct 39.8 MCV 90 MCH 30 MCHC 34 RDW 13.8 Plt Count 187 Lymph % (Auto) 22.7 [place] % (Auto) 9.2 H Eos % (Auto) 1.0 Baso % (Auto) 0.3 Lymph # 2.3 [place] # 0.9 H Eos # 0.1 Baso # 0.0 Seg Neutrophils % 66.8 Seg Neutrophils # 6.8 Sodium 144 D Potassium 3.7 Chloride 103.6 Carbon Dioxide 30 Anion Gap 14 BUN 15 Creatinine 1.3 Estimated GFR > 60 BUN/Creatinine Ratio 12 Glucose 101 H POC Glucose 93 Calcium 8.8 Total Bilirubin 0.90 AST 21 ALT 25 Alkaline Phosphatase 80 Total Protein 6.2 L Albumin 3.3 L Albumin/Globulin Ratio 1.1
[2018-01-20] MEDS: CARAFATE PO SCH ×3 (13:18→23:44)
[2018-01-20] MEDS: SODIUM CHLORIDE FLUSH SYRINGE 10 ML IV SCH ×2 (13:19→22:06)
--- NOTE | 2018-01-20 13:38 | Progress Note ---
Assessment and Plan Assessment and plan: 52-year-old male with past medical history diabetes, CVA with residual left- sided weakness, GERD, CAD with stent 2, and hypertension presents to the hospital complaints of persistent hiccups 10 days. Patient was seen here on January 12 with the same complaints. He had a noncontrast CT abdomen and pelvis was unremarkable for acute findings other than left lymphadenopathy. He was discharged on Reglan. Despite taking this medication continues to have hiccups with associated nausea, vomiting, and by mouth intolerance. He is able to tolerate minimal fluids. Patient now states he is having reflux due to the vomiting which is described as a burning pain in the center of his chest. He denies abdominal pain, diarrhea, or fever. Patient has had intractable hiccups in the past. Similar episode of intractable hiccups 2 years ago in 2015 when he presented here also with NSTEMI requiring stent placement. He also had chest pain at that time. Recurrent hiccup, nausea and vomiting - Patient is on Thorazine - GI consulted and did EGD and showed severe esophagitis - Patient is on pantoprazole and caralfate - GI recommend GES if symptoms persist Chest pain/ epigastric pain History of CAD status post stent - Cardiac enzymes slight elevation - Cardiology consult appreciated - No need for further work up Hypertension - Continue medications History of CVA with right sided weakness - Stable - On aspirin and Plavix Diabetes mellitus with hyperglycemia - On glimpride and insulin regimen DVT prophylaxis - On lovenox Disposition - Continue inpatient care History Interval history: Patient was seen and evaluated at the bedside this morning, nausea, vomiting and hiccups is getting better. Still complains pain on swallowing. Hospitalist Physical - Physical exam Narrative exam: Not in cardiopulmonary distress. The patient is obese. Vital signs as documented. Head exam is unremarkable. No scleral icterus . Neck is without jugular venous distension, thyromegaly, or carotid bruits. Lungs are clear to auscultation. Cardiac exam reveals regular rate and Rhythm. First and second heart sounds normal. No murmurs, rubs or gallops. Abdominal exam reveals normal bowel sounds, no masses, no organomegaly and no aortic enlargement. Extremities are nonedematous and both femoral and pedal pulses are normal. BULKER: Alert and oriented 3. Right-sided weakness. - Constitutional Vitals: Temp Pulse Resp BP Pulse Ox 98.0 F 98 H 20 127/93 98 09/28/18 12:11 01/20/18 13:18 01/20/18 12:11 01/20/18 13:18 01/20/18 12:11 General appearance: Present: no acute distress, well-nourished Results - Labs CBC & Chem 7: 01/20/18 06:52 01/20/18 06:52 Labs: Laboratory Last Values WBC 10.1 K/mm3 (4.5-11.0) 01/20/18 06:52 RBC 4.43 M/mm3 (3.65-5.03) 01/20/18 06:52 Hgb 13.3 gm/dl (11.8-15.2) 01/20/18 06:52 Hct 39.8 % (35.5-45.6) 01/20/18 06:52 MCV 90 fl (84-94) 01/20/18 06:52 MCH 30 pg (28-32) 01/20/18 06:52 MCHC 34 % (32-34) 01/20/18 06:52 RDW 13.8 % (13.2-15.2) 01/20/18 06:52 Plt Count 187 K/mm3 (140-440) 01/20/18 06:52 Lymph % (Auto) 22.7 % (13.4-35.0) 01/20/18 06:52 [place] % (Auto) 9.2 % (0.0-7.3) H 01/20/18 06:52 Eos % (Auto) 1.0 % (0.0-4.3) 01/20/18 06:52 Baso % (Auto) 0.3 % (0.0-1.8) 01/20/18 06:52 Lymph # 2.3 K/mm3 (1.2-5.4) 01/20/18 06:52 [place] # 0.9 K/mm3 (0.0-0.8) H 01/20/18 06:52 Eos # 0.1 K/mm3 (0.0-0.4) 01/20/18 06:52 Baso # 0.0 K/mm3 (0.0-0.1) 01/20/18 06:52 Seg Neutrophils % 66.8 % (40.0-70.0) 01/20/18 06:52 Seg Neutrophils # 6.8 K/mm3 (1.8-7.7) 01/20/18 06:52 PT 14.9 Sec. (12.2-14.9) 01/18/18 10:31 INR 1.12 (0.87-1.13) 01/18/18 10:31 APTT 23.0 Sec. (24.2-36.6) L 01/18/18 10:31 Sodium 144 mmol/L (137-145) D 01/20/18 06:52 Potassium 3.7 mmol/L (3.6-5.0) 01/20/18 06:52 Chloride 103.6 mmol/L (98-107) 01/20/18 06:52 Carbon Dioxide 30 mmol/L (22-30) 01/20/18 06:52 Anion Gap 14 mmol/L 01/20/18 06:52 BUN 15 mg/dL (9-20) 01/20/18 06:52 Creatinine 1.3 mg/dL (0.8-1.5) 01/20/18 06:52 Estimated GFR > 60 ml/min 01/20/18 06:52 BUN/Creatinine Ratio 12 % 01/20/18 06:52 Glucose 101 mg/dL (75-100) H 01/20/18 06:52 POC Glucose 93 (70-105) 01/20/18 06:31 Hemoglobin A1c 10.7 % (4-6) H 01/19/18 00:45 Calcium 8.8 mg/dL (8.4-10.2) 01/20/18 06:52 Total Bilirubin 0.90 mg/dL (0.1-1.2) 01/20/18 06:52 Direct Bilirubin < 0.2 mg/dL (0-0.2) 01/18/18 10:31 AST 21 units/L (5-40) 01/20/18 06:52 ALT 25 units/L (7-56) 01/20/18 06:52 Alkaline Phosphatase 80 units/L (35-129) 01/20/18 06:52 Troponin T 0.071 ng/mL (0.00-0.029) H 01/19/18 06:57 Total Protein 6.2 g/dL (6.3-8.2) L 01/20/18 06:52 Albumin 3.3 g/dL (3.9-5) L 01/20/18 06:52 Albumin/Globulin Ratio 1.1 % 01/20/18 06:52 Triglycerides 149 mg/dL (2-149) 01/18/18 10:24 Cholesterol 158 mg/dL (50-199) 01/18/18 10:24 LDL Cholesterol Direct 94 mg/dL (50-130) 01/18/18 10:24 HDL Cholesterol 35 mg/dL (40-59) L 01/18/18 10:24 Cholesterol/HDL Ratio 4.51 % 01/18/18 10:24 Lipase 15 units/L (13-60) 01/18/18 10:31
[2018-01-20] MEDS: LOVENOX SUB-Q SCH (22:02)
[2018-01-20] MEDS: LANTUS SUB-Q SCH (22:06)
[2018-01-21] MEDS: CARAFATE PO SCH ×2 (05:58→12:57)
[2018-01-21 06:13] LABS: BUN/Creatinine Ratio 13; Blood Urea Nitrogen 17 mg/dL (9-20); Calcium 8.8 mg/dL (8.4-10.2); Hemolysis Index 9
[2018-01-21 07:45] VITALS: BP 134/70
[2018-01-21] MEDS: LIORESAL PO SCH ×2 (09:58→14:40)
[2018-01-21] MEDS: DIOVAN PO SCH (09:58)
[2018-01-21] MEDS: NORVASC PO SCH (09:58)
[2018-01-21] MEDS: PROTONIX PO SCH (09:58)
[2018-01-21] MEDS: HCTZ PO SCH (09:58)
[2018-01-21] MEDS: AMARYL PO SCH (09:58)
[2018-01-21] MEDS: LOPRESSOR PO SCH (09:58)
[2018-01-21] MEDS: PLAVIX PO SCH (09:58)
[2018-01-21] MEDS: CATAPRES PO SCH ×2 (09:59→14:40)
[2018-01-21] MEDS: SODIUM CHLORIDE FLUSH SYRINGE 10 ML IV SCH (09:59)
[2018-01-21] MEDS: ASPIRIN PO SCH (09:59)
[2018-01-21] MEDS: HumaLOG SUB-Q SCH ×2 (10:00→12:57)
--- NOTE | 2018-01-21 10:38 | Progress Note ---
Assessment and Plan 1. Arteriosclerosis of the coronary arteries 2. Status post PCI to the LAD and RCA 3. Ischemic cardiomyopathy 4. Essential hypertension 5. Type 2 diabetes mellitus 6. Cerebrovascular disease history of CVA Plan. Cardiac-fatima stable continue present anti-ischemic medication Subjective Date of service: 01/21/18 Principal diagnosis: intractable hiccups, vomiting Interval history: No cardiac symptoms. Objective Vital Signs Temp Pulse Resp BP Pulse Ox 01/21/18 05:44 98.4 F 76 18 134/70 96 01/21/18 05:00 80 01/21/18 00:16 98.2 F 72 20 111/72 97 01/20/18 22:00 18 01/20/18 20:15 98.4 F 94 H 18 130/91 96 01/20/18 17:10 98.1 F 79 20 132/85 98 01/20/18 13:18 98 H 127/93 01/20/18 13:00 83 01/20/18 12:11 98.0 F 98 H 20 127/93 98 01/20/18 12:00 78 122/69 - Physical Examination General: No Apparent Distress HEENT: Positive: PERRL Neck: Positive: neck supple, trachea midline. Negative: JVD/HJR Cardiac: Positive: Regular Rate, S1/S2, PMI, Laterally Displaced. Negative: S3 , S4 Lungs: Positive: clear to auscultation, No Wheeze, Rales, Rhonchi Neuro: Positive: Grossly Intact Abdomen: Positive: Unremarkable, Soft, Active Bowel Sounds Extremities: Absent: edema - Labs and Meds Comprehensive Metabolic Panel 01/21/18 Range/Units 05:14 Sodium 142 (137-145) mmol/L Potassium 4.2 (3.6-5.0) mmol/L Chloride 103.5 (98-107) mmol/L Carbon Dioxide 29 (22-30) mmol/L BUN 17 (9-20) mg/dL Creatinine 1.3 (0.8-1.5) mg/dL Glucose 141 H (75-100) mg/dL Calcium 8.8 (8.4-10.2) mg/dL - Imaging and Cardiology EKG: report reviewed
--- NOTE | 2018-01-21 10:46 | Discharge Summary ---
Providers - Providers Date of Admission: 01/18/18 12:34 Attending physician: AIDE STRINGER MD 01/18/18 11:34 Consult to Physician [CONS] Urgent Comment: Consulting Provider: BILL QUISPE Physician Instructions: Reason For Exam: intractable hiccups, vomiting, dehydration 01/18/18 12:18 Consult to Physician [CONS] Urgent Comment: Consulting Provider: MIGUEL BEAVERS Physician Instructions: Reason For Exam: intractable hiccups, elevated trop with cad 01/20/18 07:36 Consult to Wound/ET Nurse [CONS] Stat Reason For Exam: Left leg wound eval Primary care physician: BUSINESS CONTROL SPECIALIST Hospitalization Reason for admission: Intractable hiccup, severe esophagitis Condition: Stable Disposition: DC-30 STILL A PATIENT Time spent for discharge: 32 minutes - Discharge Diagnoses (1) History of CVA with residual deficit Status: Acute (2) GERD (gastroesophageal reflux disease) Status: Acute (3) Intractable hiccups Status: Acute (4) Vomiting Status: Acute (5) CAD (coronary artery disease) Status: Chronic Qualifiers: Coronary Disease-Associated Artery/Lesion type: [place] artery [place] vs. transplanted heart: [place] heart (6) Diabetes Status: Chronic Qualifiers: Diabetes mellitus type: type 2 (7) HTN (hypertension) Status: Chronic Qualifiers: Hypertension type: essential hypertension Qualified Code(s): I10 - Essential (primary) hypertension (8) Left hemiparesis Status: Chronic Core Measure Documentation - Palliative Care Palliative Care/ Comfort Measures: Not Applicable - Core Measures Any of the following diagnoses?: history only (CVA) Exam - Physical Exam Narrative exam: Not in cardiopulmonary distress. The patient is obese. Vital signs as documented. Head exam is unremarkable. No scleral icterus . Neck is without jugular venous distension, thyromegaly, or carotid bruits. Lungs are clear to auscultation. Cardiac exam reveals regular rate and Rhythm. First and second heart sounds normal. No murmurs, rubs or gallops. Abdominal exam reveals normal bowel sounds, no masses, no organomegaly and no aortic enlargement. Extremities are nonedematous and both femoral and pedal pulses are normal. SALSA DANCE INSTRUCTOR: Alert and oriented 3. Right-sided weakness. - Constitutional Vitals: Temp Pulse Resp BP Pulse Ox 98.4 F 76 18 134/70 96 01/21/18 05:44 01/21/18 05:44 01/21/18 05:44 01/21/18 05:44 01/21/18 05:44 Plan Activity: advance as tolerated Weight Bearing Status: Partial Weight Bearing Diet: low cholesterol, low salt, diabetic Follow up with: PRIMARY CARE, [Primary Care Provider] - 7 Days TAHIR SHEA MD [Staff Physician] - 14 Days Prescriptions: oxyCODONE /ACETAMINOPHEN [Percocet 5/325 mg] 1 tab PO Q6H PRN #10 tablet PRN Reason: Pain, Moderate (4-6) Pantoprazole [Protonix TAB] 40 mg PO BID #60 tablet Sucralfate [Carafate] 1 gm PO Q6HR #1200 oral.liqd
== END 2018-01-21 16:01 | disposition home or self-care (01) | DRG 381 ==
LOC: ED 09:44 → 4A 12:34
PROVIDERS: ADMIT Internal Medicine; ATTEND Internal Medicine
PROC: 0DB28ZX Excision of Middle Esophagus, Via Natural or Artificial Opening Endoscopic, Diagnostic (ICD-10-PCS; principal; 2018-01-19)
DX: K22.10 Ulcer of esophagus without bleeding (principal); I69.354 Hemiplegia and hemiparesis following cerebral infarction affecting left non-dominant side; E86.0 Dehydration; I25.5 Ischemic cardiomyopathy; E11.65 Type 2 diabetes mellitus with hyperglycemia; I25.10 Atherosclerotic heart disease of native coronary artery without angina pectoris; I10 Essential (primary) hypertension; K21.0 Gastro-esophageal reflux disease with esophagitis; R59.1 Generalized enlarged lymph nodes; R07.89 Other chest pain; K44.9 Diaphragmatic hernia without obstruction or gangrene; I25.2 Old myocardial infarction; Z95.5 Presence of coronary angioplasty implant and graft; Z90.89 Acquired absence of other organs; Z79.82 Long term (current) use of aspirin; Z79.4 Long term (current) use of insulin; Z79.899 Other long term (current) drug therapy; Z82.49 Family history of ischemic heart disease and other diseases of the circulatory system; Z91.013 Allergy to seafood; Z91.09 Other allergy status, other than to drugs and biological substances
CPT/HCPCS: 36415; 80048; 80053; 80061; 80074; 82962; 83036; 83690; 84484; 85025; 85610; 85730; 88305; 88312; 88342; 93005; 93010; 96365; 96366; 96375; C9113; J1650; J1815; J2250; J2405; J2704; J3230; J7030

== ENCOUNTER 2019-05-10 14:26 | Emergency (ER) | payer BC ==
[2019-05-10] MEDS ORDERED: cloNIDine 0.2 MG TAB PO ONE (14:58)
--- NOTE | 2019-05-10 14:59 | Cat Scan Report ---
CT HEAD WITHOUT CONTRAST INDICATION / CLINICAL INFORMATION: left-sided weakness, hypertension. TECHNIQUE: Axial imaging performed from the skull apex through the skull base without the use of cont rast. Sagittal and coronal reformatted images. All CT scans at this location are performed using CT dose reduction for ALARA by means of automated exposure control. COMPARISON: None available. FINDINGS: CEREBRAL PARENCHYMA: Chronic focal infarct in the right basal ganglia region measures up to 1.2 cm. T he remaining brain parenchyma demonstrates normal density. No large area of acute ischemia is appreci ated. No mass or mass effect. HEMORRHAGE: None. EXTRA-AXIAL SPACES: Normal in size and morphology for the patient's age. VENTRICULAR SYSTEM: Normal in size and morphology for the patient's age. MIDLINE SHIFT OR HERNIATION: None. CEREBELLUM / BRAINSTEM: No significant abnormality. CALVARIUM: No significant abnormality. ORBITS: Normal as visualized. PARANASAL SINUSES / MASTOID AIR CELLS: Normal as visualized. SOFT TISSUES of HEAD: No significant abnormality. ADDITIONAL FINDINGS: None. IMPRESSION: No acute intracranial abnormality. Chronic focal infarct in the right basal ganglia. These findings were discussed with Dr. To in the emergency department at 1454 hours EST Signer Name: Reji Mayer Jr, MD Signed: 05/10/2019 2:55 PM Workstation Name: [id number]
[2019-05-10 15:13] LABS: Basophils # (Auto) 0.1 K/mm3 (0.0-0.1); Basophils % (Auto) 0.8 % (0.0-1.8); Eosinophils # (Auto) 0.3 K/mm3 (0.0-0.4); Eosinophils % (Auto) 3.9 % (0.0-4.3); Hematocrit 44.8 % (35.5-45.6); Hemoglobin 14.9 gm/dl (11.8-15.2); Lymphocytes # (Auto) 2.2 K/mm3 (1.2-5.4); Lymphocytes % (Auto) 28.8 % (13.4-35.0); Mean Corpuscular HGB Conc 33 % (32-34); Mean Corpuscular Volume 89 fl (84-94); Monocytes # (Auto) 0.5 K/mm3 (0.0-0.8); Monocytes % (Auto) 7.2 % (0.0-7.3); Platelet Count 202 K/mm3 (140-440); Red Blood Count 5.07 M/mm3 (3.65-5.03); Red Cell Distribution Width 14.6 % (13.2-15.2)
--- NOTE | 2019-05-10 15:15 | Emergency Department Report ---
ED Neuro Deficit HPI - General Chief Complaint: Neuro Symptoms/Deficit Stated Complaint: HBP Time Seen by Provider: 05/10/19 14:36 Source: patient Mode of arrival: Wheelchair Limitations: Physical Limitation - History of Present Illness Initial Comments: [facility] TeleStroke Metrics: LKW: 1200 Door Time: 1426 [facility] Contacted: 1434 [facility] at Bedside: 1445 NIHSS: 1449 Decision on Alteplase: Not to give as the patient is currently at his neurological baseline. Patient was agreeable not to receive IV alteplase. Interventional Candidate: Not a candidate as his symptoms are not consistent with a large vessel proximal occlusion. Chief Complaint: Altered mental status and lightheadedness HPI: Asked to see this patient in emergent telemedicine consultation utilizing interactive audio and video technologies. Consultation was performed with assistance of ancillary / medical staff at bedside. Verbal consent to perform the examination with telemedicine was obtained. Patient agreed to proceed with the consultation for acute stroke protocol. 53-year-old right-handed -[place] male who drove himself to the hospital today for lightheadedness and not feeling well, and for evaluation of elevated blood pressures. Patient reports a history of prior right hemisphere stroke in 2016. This left him with chronic left hemiparesis. He is currently on aspirin and Plavix. He states that his stroke was due to uncontrolled risk factors such as his high blood pressure and diabetes. Apparently, the patient's mother recently . Sometime around 12 PM, he started feeling poorly and lightheaded. He checked his blood pressure and it was 212/100. He continued to feel bad, and decided to drive himself to the ER. Currently, the patient has left hemiparesis that is stable and at its baseline. Patient himself denies any new neurologic symptoms. Blood pressure is still elevated around 195/96. Head CT is negative. I reviewed with the patient about the availability of IV alteplase. I reviewed with him about some of the potential side effects of IV alteplase to include an approximate 6% risk of symptomatic intracranial hemorrhage, internal bleeding, and/or angioedema. At the end of the day, since the patient is at his neurological baseline and his NIH stroke scale score is 0 for any new symptoms, patient was in agreement with not to receive IV alteplase. 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 Patient is . FMH: Negative for stroke. ROS: 13 point review systems were reviewed with the patient, and are all negative with the exception of the aforementioned in the history of present illness. VS: Blood pressure 195/96, pulse 84, respiration 20, oxygen saturation 98% Exam: Patient is in no apparent distress. Patient appears as stated age. No obvious acute respiratory or cardiac distress. Patient is well groomed and well-nourished. 1a- LOC: Keenly responsive - 0 1b- LOC questions: Answers both questions correctly - 0 1c- LOC commands- Performs both tasks correctly- 0 2- Gaze: Normal; no gaze paresis or gaze deviation - 0 3- Visual Calderon: normal, no Visual field deficit - 0 4- Facial movements: no facial palsy - 0 5- Upper limb motor left arm drift - 1(chronic) 6- Lower limb motor left leg drift 1 (chronic) 7- Limb Coordination: absent ataxia - 0 8- Sensory: no sensory loss - 0 9- Language - No aphasia - 0 10- Speech - No dysarthria -0 11- Neglect / Extinction - none found - 0 NIHSS score: 0 Diagnostic Data: CT reportedly showed no acute intracranial process Medical Data Reviewed: 1.Data?reviewed include clinical labs, radiology,?and medical tests; 2.Tests?results discussed w/performing or interpreting physician; 3.Obtaining/reviewing old medical records; 4.Obtaining?case history from another source; 5.Independent?review of image, tracing, or specimen. Medical Decision Making: - Extensive number of diagnosis or management options are considered below. - Extensive amount of complex data reviewed. - High risk of complication and/or morbidity or mortality are associated with differential diagnostic considerations below. - There may be?uncertain?outcome and increased probability of prolonged functional impairment or high probability of severe prolonged functional impairment associated with some of these differential diagnosis. Differential Diagnosis for Stroke: 1.?Cardioembolic?stroke 2. Small vessel disease/lacune 3. Thromboembolic, [id number] mechanism 4.?Hypercoagulable?state-related infarct 5. Transient ischemic attack 6. Thrombotic mechanism, large artery disease Assessment: 1. Hypertensive encephalopathy/presyncope 2. 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 Hypertension 4. Hyperlipidemia 5. Diabetes mellitus Recommendations: Patient at this point feels like he did not have another stroke. He only came into the emergency room due to not feeling well and elevated blood pressures. Patient can be maintained on his aspirin and Plavix. We will defer further management of his blood pressure to the ER team. Continue supportive care. Thank you for allowing [facility] to participate in the care of your patient. Please call me, Dr. Goodrich, with any questions at [phone]. Case discussed with the ER staff and the ER attending. Critical Care notation: I was called to see this critical patient emergently. I personally evaluated this critical patient for acute stroke evaluation, and determining their eligibility for IV Alteplase and interventional therapies. I have spent approximately 8 minutes with the patient, including time at bedside, time discussing the case with other physicians, reviewing plan of care, and time independently reviewing the records and scans. - Related Data Home Medications: Home Medications Medication Instructions Recorded Confirmed Last Taken Insulin Glargine [Lantus VIAL] 25 units SUB-Q QHS 06/21/17 01/18/18 2 Weeks Ago ~01/04/18 Valsartan/Hydrochlorothiazide 1 each PO DAILY 06/21/17 01/18/18 2 Weeks Ago [Valsartan-Hctz 160-12.5 mg Tab] ~01/04/18 cloNIDine [Catapres] 0.1 mg PO TID 06/21/17 01/18/18 2 Weeks Ago ~01/04/18 Previous Rx's Medication Instructions Recorded Last Taken Type Baclofen [Lioresal] 5 mg PO TID #45 tablet 09/16/15 2 Weeks Ago Rx ~01/04/18 Clopidogrel [Plavix] 75 mg PO QDAY #30 tablet 09/16/15 2 Weeks Ago Rx ~01/04/18 Glimepiride [Amaryl] 4 mg PO QDDIAB #30 tablet 09/16/15 2 Weeks Ago Rx ~01/04/18 amLODIPine 10 mg PO QDAY #30 tablet 09/16/15 2 Weeks Ago Rx ~01/04/18 Aspirin 325 mg PO QDAY #30 tablet 03/27/16 2 Weeks Ago Rx ~01/04/18 Metoprolol [Lopressor TAB] 25 mg PO BID #60 tablet 03/27/16 2 Weeks Ago Rx ~01/04/18 Metoclopramide [Reglan TAB] 10 mg PO QID PRN #30 tab 01/13/18 2 Weeks Ago Rx ~01/04/18 Pantoprazole [Protonix TAB] 40 mg PO BID #60 tablet 01/21/18 Unknown Rx Sucralfate [Carafate] 1 gm PO Q6HR #1200 oral.liqd 01/21/18 Unknown Rx oxyCODONE /ACETAMINOPHEN [Percocet 1 tab PO Q6H PRN #10 tablet 01/21/18 Unknown Rx 5/325 mg] Allergies/Adverse Reactions: Allergies Allergy/AdvReac Type Severity Reaction Status Date / Time vitamin K2 Allergy Intermediate Swelling Verified 03/21/16 18:50 shellfish derived Allergy Shortness Verified 08/19/15 22:46 of Breath ED Review of Systems ROS: Stated complaint: HBP Other details as noted in HPI ED Past Medical Hx - Past Medical History Hx Hypertension: Yes Hx CVA: Yes (LUE and LLE weakness) Hx Heart Attack/AMI: Yes Hx Congestive Heart Failure: No Hx Diabetes: Yes Hx GERD: Yes Hx Asthma: No Hx COPD: No - Surgical History Hx Coronary Stent: Yes (26 March 2016) Hx Pacemaker: No Additional Surgical History: tonsillectomy (long time ago) - Social History Smoking Status: Never Smoker - Medications Home Medications: Home Medications Medication Instructions Recorded Confirmed Last Taken Type Baclofen [Lioresal] 5 mg PO TID #45 tablet 09/16/15 01/18/18 2 Weeks Ago Rx ~01/04/18 Clopidogrel [Plavix] 75 mg PO QDAY #30 tablet 09/16/15 01/18/18 2 Weeks Ago Rx ~01/04/18 Glimepiride [Amaryl] 4 mg PO QDDIAB #30 tablet 09/16/15 01/18/18 2 Weeks Ago Rx ~01/04/18 amLODIPine 10 mg PO QDAY #30 tablet 09/16/15 01/18/18 2 Weeks Ago Rx ~01/04/18 Aspirin 325 mg PO QDAY #30 tablet 03/27/16 01/18/18 2 Weeks Ago Rx ~01/04/18 Metoprolol [Lopressor TAB] 25 mg PO BID #60 tablet 03/27/16 01/18/18 2 Weeks Ago Rx ~01/04/18 Insulin Glargine [Lantus VIAL] 25 units SUB-Q QHS 06/21/17 01/18/18 2 Weeks Ago History ~01/04/18 Valsartan/Hydrochlorothiazide 1 each PO DAILY 06/21/17 01/18/18 2 Weeks Ago History [Valsartan-Hctz 160-12.5 mg Tab] ~01/04/18 cloNIDine [Catapres] 0.1 mg PO TID 06/21/17 01/18/18 2 Weeks Ago History ~01/04/18 Metoclopramide [Reglan TAB] 10 mg PO QID PRN #30 tab 01/13/18 01/18/18 2 Weeks Ago Rx ~01/04/18 Pantoprazole [Protonix TAB] 40 mg PO BID #60 tablet 01/21/18 Unknown Rx Sucralfate [Carafate] 1 gm PO Q6HR #1200 oral.liqd 01/21/18 Unknown Rx oxyCODONE /ACETAMINOPHEN [Percocet 1 tab PO Q6H PRN #10 tablet 01/21/18 Unknown Rx 5/325 mg] ED Neuro Physical Exam - General Limitations: Physical Limitation Suspected Stroke: No ED Course Vital Signs 05/10/19 14:33 Temperature 98.0 F Pulse Rate 84 Respiratory 20 Rate Blood Pressure 249/123 O2 Sat by Pulse 98 Oximetry - Lab Data Result diagrams: 05/10/19 14:52 Lab Results 05/10/19 05/10/19 Range/Units 14:43 14:52 [place] % (Auto) 7.2 (0.0-7.3) % Eos % (Auto) 3.9 (0.0-4.3) % [place] # 0.5 (0.0-0.8) K/mm3 Eos # 0.3 (0.0-0.4) K/mm3 Baso # 0.1 (0.0-0.1) K/mm3 Seg Neutrophils % 59.3 (40.0-70.0) % Seg Neutrophils # 4.4 (1.8-7.7) K/mm3 POC Glucose 215 H (70-105) Critical care attestation.: If time is entered above; I have spent that time in minutes in the direct care of this critically ill patient, excluding procedure time. ED Disposition Clinical Impression: Accelerated hypertension, History of CVA with residual deficit Disposition: DC-09 OP ADMIT IP TO THIS HOSP Is pt being admited?: No Does the pt Need Aspirin: No Condition: Stable Instructions: Hypertension (ED)
[2019-05-10 15:24] LABS: INR 1.03 (0.87-1.13)
[2019-05-10 15:25] LABS: Partial Thromboplastin Time 23.8 Sec. (24.2-36.6); Thrombin Time 16.8 Sec. (15.1-19.6)
[2019-05-10 15:34] LABS: BUN/Creatinine Ratio 14; Blood Urea Nitrogen 15 mg/dL (9-20); Hemolysis Index 5
--- NOTE | 2019-05-10 16:03 | Emergency Department Report ---
HPI - General Chief Complaint: Neuro Symptoms/Deficit Time Seen by Provider: 05/10/19 14:36 - HPI HPI: Room 17 The patient is a 53-year-old male presenting with a chief complaint of hypertension and headache. The patient states this morning he felt his blood pressures elevated and when he checked it he saw that it was in the 200s systolic. Patient states she had a headache at the calvarium prompted him to come to the emergency department. Patient denies nausea or vomiting Location: [See above] Duration: [See above] Quality: [See above] Severity: [See above] Timing: [See above] Context: [See above] Modifying factors: [See above] Associated signs and symptoms: [see above] ED Past Medical Hx - Past Medical History Hx Hypertension: Yes Hx CVA: Yes (LUE and LLE weakness) Hx Heart Attack/AMI: Yes Hx Diabetes: Yes Hx GERD: Yes - Surgical History Hx Coronary Stent: Yes (26 March 2016) Additional Surgical History: tonsillectomy (long time ago) - Family History Family history: no significant - Social History Smoking Status: Never Smoker Substance Use Type: None (denies illicit drug use) - Medications Home Medications: Home Medications Medication Instructions Recorded Confirmed Last Taken Type Baclofen [Lioresal] 5 mg PO TID #45 tablet 09/16/15 01/18/18 2 Weeks Ago Rx ~01/04/18 Clopidogrel [Plavix] 75 mg PO QDAY #30 tablet 09/16/15 01/18/18 2 Weeks Ago Rx ~01/04/18 Glimepiride [Amaryl] 4 mg PO QDDIAB #30 tablet 09/16/15 01/18/18 2 Weeks Ago Rx ~01/04/18 amLODIPine 10 mg PO QDAY #30 tablet 09/16/15 01/18/18 2 Weeks Ago Rx ~01/04/18 Aspirin 325 mg PO QDAY #30 tablet 03/27/16 01/18/18 2 Weeks Ago Rx ~01/04/18 Metoprolol [Lopressor TAB] 25 mg PO BID #60 tablet 03/27/16 01/18/18 2 Weeks Ago Rx ~01/04/18 Insulin Glargine [Lantus VIAL] 25 units SUB-Q QHS 06/21/17 01/18/18 2 Weeks Ago History ~01/04/18 Valsartan/Hydrochlorothiazide 1 each PO DAILY 06/21/17 01/18/18 2 Weeks Ago History [Valsartan-Hctz 160-12.5 mg Tab] ~01/04/18 cloNIDine [Catapres] 0.1 mg PO TID 06/21/17 01/18/18 2 Weeks Ago History ~01/04/18 Metoclopramide [Reglan TAB] 10 mg PO QID PRN #30 tab 01/13/18 01/18/18 2 Weeks Ago Rx ~01/04/18 Pantoprazole [Protonix TAB] 40 mg PO BID #60 tablet 01/21/18 Unknown Rx Sucralfate [Carafate] 1 gm PO Q6HR #1200 oral.liqd 01/21/18 Unknown Rx oxyCODONE /ACETAMINOPHEN [Percocet 1 tab PO Q6H PRN #10 tablet 01/21/18 Unknown Rx 5/325 mg] ED Review of Systems ROS: Stated complaint: HBP Other details as noted in HPI Constitutional: no symptoms reported Eyes: denies: eye pain ENT: denies: throat pain Respiratory: no symptoms reported Cardiovascular: denies: chest pain Endocrine: no symptoms reported Gastrointestinal: denies: abdominal pain, nausea, vomiting Genitourinary: denies: dysuria Neurological: headache Physical Exam - Physical Exam Vital Signs: Vital Signs 05/10/19 05/10/19 05/10/19 14:33 15:16 15:18 Temperature 98.0 F 98.3 F Pulse Rate 84 84 80 Respiratory 20 18 26 H Rate Blood Pressure 249/123 Blood Pressure 249/123 [Right] O2 Sat by Pulse 98 100 98 Oximetry 05/10/19 05/10/19 15:25 15:31 Temperature Pulse Rate 88 75 Respiratory 14 Rate Blood Pressure 249/103 Blood Pressure [Right] O2 Sat by Pulse 97 Oximetry Physical Exam: GENERAL: The patient is well-developed well-nourished male sitting on stretcher not appearing to be in acute distress. [] HEENT: Normocephalic. Atraumatic. Extraocular motions are intact. Patient has moist mucous membranes. NECK: Supple. Trachea midline CHEST/LUNGS: Clear to auscultation. There is no respiratory distress noted. HEART/CARDIOVASCULAR: Regular. There is no tachycardia. There is no gallop rub or murmur. ABDOMEN: Abdomen is soft, nontender. Patient has normal bowel sounds. There is no abdominal distention. SKIN: There is no rash. There is no edema. There is no diaphoresis. NEURO: The patient is awake, alert, and oriented. The patient is cooperative. Patient has left hemiparesis from previous CVA. No new deficits. The patient has normal speech MUSCULOSKELETAL: There is no evidence of acute injury. ED Course Vital Signs 05/10/19 05/10/19 05/10/19 14:33 15:16 15:18 Temperature 98.0 F 98.3 F Pulse Rate 84 84 80 Respiratory 20 18 26 H Rate Blood Pressure 249/123 Blood Pressure 249/123 [Right] O2 Sat by Pulse 98 100 98 Oximetry 05/10/19 05/10/19 15:25 15:31 Temperature Pulse Rate 88 75 Respiratory 14 Rate Blood Pressure 249/103 Blood Pressure [Right] O2 Sat by Pulse 97 Oximetry - Reevaluation(s) Reevaluation #1: 05/10/19 17:07 BP 142/78 ED Medical Decision Making - Lab Data Result diagrams: 05/10/19 14:52 05/10/19 14:52 Laboratory Tests 05/10/19 05/10/19 05/10/19 14:43 14:52 14:52 WBC 7.5 RBC 5.07 H Hgb 14.9 Hct 44.8 MCV 89 MCH 30 MCHC 33 RDW 14.6 Plt Count 202 Lymph % (Auto) 28.8 [place] % (Auto) 7.2 Eos % (Auto) 3.9 Baso % (Auto) 0.8 Lymph # 2.2 [place] # 0.5 Eos # 0.3 Baso # 0.1 Seg Neutrophils % 59.3 Seg Neutrophils # 4.4 PT 13.6 INR 1.03 APTT 23.8 L Thrombin Time 16.8 Sodium Potassium Chloride Carbon Dioxide Anion Gap BUN Creatinine Estimated GFR BUN/Creatinine Ratio Glucose POC Glucose 215 H Calcium 05/10/19 14:52 WBC RBC Hgb Hct MCV MCH MCHC RDW Plt Count Lymph % (Auto) [place] % (Auto) Eos % (Auto) Baso % (Auto) Lymph # [place] # Eos # Baso # Seg Neutrophils % Seg Neutrophils # PT INR APTT Thrombin Time Sodium 136 L Potassium 3.9 Chloride 97.9 L Carbon Dioxide 24 Anion Gap 18 BUN 15 Creatinine 1.1 Estimated GFR > 60 BUN/Creatinine Ratio 14 Glucose 201 H POC Glucose Calcium 10.0 - EKG Data -: EKG Interpreted by Sc EKG shows normal: sinus rhythm Rate: normal - EKG Data When compared to previous EKG there are: previous EKG unavailable Interpretation: other (no ischemic changes seen) - Radiology Data Radiology results: report reviewed (CT head), image reviewed (CT head) [facility] [address] [place] [address] Cat Scan Report Signed Patient: JONNA CALVERT JR MR# : [id number] : 1965 Acct:[id number] Age/Sex: 53 / M ADM Date: 05/10/19 Loc: ED Attending Dr: Ordering Physician: KELLY MATTHEWS MD Date of Service: 05/10/19 Procedure(s): CT head/brain wo con Accession Number(s): [id number] cc: KELLY MATTHEWS MD CT HEAD WITHOUT CONTRAST INDICATION / CLINICAL INFORMATION: left-sided weak ness, hypertension. TECHNIQUE: Axial imaging performed from the skull apex through the skull base without the use of contrast. Sagittal and coronal reformatted images. All CT scans at this location are performed using CT dose reduction for ALARA by means of automated exposure control. COMPARISON: None available. FINDINGS: CEREBRAL PARENCHYMA: Chronic focal infarct in the right basal ganglia region measures up to 1.2 cm. The remaining brain parenchyma demonstrates normal density. No large area of acute ischemia is appreciated. No mass or mass effect. HEMORRHAGE: None. EXTRA-AXIAL SPACES: Normal in size and morphology for the patient's age. VENTRICULAR SYSTEM: Normal in size and morphology for the patient's age. MIDLINE SHIFT OR HERNIATION: None. CEREBELLUM / BRAINSTEM: No significant abnormality. CALVARIUM: No significant abnormality. ORBITS: Normal as visualized. PARANASAL SINUSES / MASTOID AIR CELLS: Normal as visualized. SOFT TISSUES of HEAD: No significant abnormality. ADDITIONAL FI NDINGS: None. IMPRESSION: No acute intracranial abnormality. Chronic focal infarct in the right basal ganglia. These findings were discussed with Dr. Matthews in the emergency department at 1454 hours EST Signer Name: Reji Mayer Jr, MD Signed: 05/10/2019 2:55 PM Workstation Name: [id number] Transcribed By: TTR Dictated By: REJI MAYER JR, MD Electronically Authenticated By: REJI MAYER JR, MD Signed Date/Time: 05/10/191454 DD/ 50 TD/TT: - Differential Diagnosis hypertensive urgency, intracranial hemorrhage Critical care attestation.: If time is entered above; I have spent that time in minutes in the direct care of this critically ill patient, excluding procedure time. ED Disposition Clinical Impression: Accelerated hypertension, History of CVA with residual deficit Disposition: -01 TO HOME OR SELFCARE Is pt being admited?: No Does the pt Need Aspirin: No Condition: Stable Instructions: Hypertension (ED) Additional Instructions: Return to the emergency department should you develop worsening symptoms, inability to tolerate food or liquids, high fever or any other concerns Referrals: PRIMARY CARE, [Referring] - 3-5 Days Time of Disposition: 17:08
[2019-05-10 17:10] VITALS: BP 149/79
== END 2019-05-10 17:51 | disposition home or self-care (01) ==
LOC: ED 14:26
DX: I10 Essential (primary) hypertension (principal); I69.30 Unspecified sequelae of cerebral infarction; I25.2 Old myocardial infarction; E11.9 Type 2 diabetes mellitus without complications; K21.9 Gastro-esophageal reflux disease without esophagitis; Z95.5 Presence of coronary angioplasty implant and graft; Z79.899 Other long term (current) drug therapy; Z88.8 Allergy status to other drugs, medicaments and biological substances; Z91.013 Allergy to seafood; Z79.4 Long term (current) use of insulin
CPT/HCPCS: 36415; 70450; 80048; 82962; 85025; 85610; 85670; 85730; 93005; 93010

== ENCOUNTER 2020-06-18 07:20 | Inpatient (IN) | payer MEDICARE ==
[2020-06-18] MEDS ORDERED: IPRATROPIUM/ALBUTEROL SULFATE 3 ML AMPUL.NEB IH ONE (08:38)
[2020-06-18] MEDS ORDERED: SODIUM CHLORIDE 0.9% 1000 ML 1,000 ML IV ONE (08:38)
[2020-06-18] MEDS ORDERED: SODIUM CHLORIDE 0.9% 500 ML 500 ML IV ONE (08:38)
[2020-06-18] MEDS ORDERED: ONDANSETRON 4 MG/2 ML INJ IV ONE (08:38)
--- NOTE | 2020-06-18 08:42 | Emergency Department Report ---
HPI - General Chief Complaint: Nausea/Vomiting/Diarrhea Time Seen by Provider: 06/18/20 08:23 - HPI HPI: This is a 54-year-old -[place] male presents to the emergency department from home with complaint of a 3 to 4-day history of chills, generalized fatigue/weakness, a mixed dry and productive cough, nausea with vomiting, decreased appetite. The patient's , who works at [employer], says that she was recently sick with similar symptoms but she has improved while the patient has not. Eating food increases his nausea and makes him vomit. However he has been able to drink green tea and water to stay hydrated. No obvious fever but the patient has felt warm as if he has a fever. He has been using Wilkins's for his cough. No recent travel. He has a past medical history of hypertension, CVA with residual left-sided weakness, insulin-dependent diabetes, and coronary artery disease with cardiac stents. His primary care physician is Dr. 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 He denies any tobacco or illicit drug use. ED Past Medical Hx - Past Medical History Hx Hypertension: Yes Hx CVA: Yes (LUE and LLE weakness) Hx Heart Attack/AMI: Yes Hx Congestive Heart Failure: No Hx Diabetes: Yes Hx GERD: Yes Hx Asthma: No Hx COPD: No - Surgical History Hx Coronary Stent: Yes (26 March 2016) Hx Pacemaker: No Additional Surgical History: tonsillectomy (long time ago) - Social History Smoking Status: Never Smoker Substance Use Type: None - Medications Home Medications: Home Medications Medication Instructions Recorded Confirmed Last Taken Type Baclofen [Lioresal] 5 mg PO TID #45 tablet 09/16/15 06/18/20 2 Weeks Ago Rx ~01/04/18 Clopidogrel [Plavix] 75 mg PO QDAY #30 tablet 09/16/15 06/18/20 2 Weeks Ago Rx ~01/04/18 Glimepiride [Amaryl] 4 mg PO QDDIAB #30 tablet 09/16/15 06/18/20 2 Weeks Ago Rx ~01/04/18 amLODIPine 10 mg PO QDAY #30 tablet 09/16/15 06/18/20 2 Weeks Ago Rx ~01/04/18 Aspirin 325 mg PO QDAY #30 tablet 03/27/16 06/18/20 2 Weeks Ago Rx ~01/04/18 Metoprolol [Lopressor TAB] 25 mg PO BID #60 tablet 03/27/16 06/18/20 2 Weeks Ago Rx ~01/04/18 Insulin Glargine [Lantus VIAL] 25 units SUB-Q QHS 06/21/17 06/18/20 2 Weeks Ago History ~01/04/18 cloNIDine [Catapres] 0.1 mg PO TID 06/21/17 06/18/20 2 Weeks Ago History ~01/04/18 Insulin Aspart Prot/Insuln Asp 25 unit SQ BID 06/18/20 06/18/20 Unknown History [Novolog Mix 70-30 Flexpen] Isosorb Dinit/Hydralazine [Bidil 1 tab PO BID 06/18/20 06/18/20 Unknown History 20/37.5MG] ED Review of Systems ROS: Stated complaint: BODY ACHES Other details as noted in HPI Comment: All other systems reviewed and negative Constitutional: chills, fever (subjective), weakness Eyes: denies: eye pain, vision change ENT: denies: ear pain, throat pain Respiratory: cough. denies: orthopnea Cardiovascular: chest pain. denies: palpitations Gastrointestinal: nausea, vomiting Genitourinary: denies: dysuria, discharge Musculoskeletal: myalgia. denies: arthralgia Skin: denies: rash, lesions Neurological: denies: numbness, paresthesias Physical Exam - Physical Exam Vital Signs: Vital Signs 06/18/20 06/18/20 07:28 08:26 Temperature 99.2 F Pulse Rate 102 H 88 Respiratory 22 18 Rate Blood Pressure 111/66 Blood Pressure 150/77 [Right] O2 Sat by Pulse 95 97 Oximetry Physical Exam: GENERAL: The patient is well-developed well-nourished. HENT: Normocephalic. Atraumatic. Patient has moist mucous membranes. EYES: Extraocular motions are intact. NECK: Supple. Trachea is midline. CHEST/LUNGS: Rhonchi heard at the bases. Mild tachypnea but no accessory muscle use. HEART/CARDIOVASCULAR: Regular. There is no tachycardia. There is no murmur. ABDOMEN: Abdomen is soft, nontender. Patient has normal bowel sounds. There is no abdominal distention. SKIN: Skin is warm and dry. NEURO: The patient is awake, alert, and oriented. The patient is cooperative. Chronic left-sided weakness. Normal speech. MUSCULOSKELETAL: There is no tenderness or deformity. ED Course Vital Signs 06/18/20 06/18/20 07:28 08:26 Temperature 99.2 F Pulse Rate 102 H 88 Respiratory 22 18 Rate Blood Pressure 111/66 Blood Pressure 150/77 [Right] O2 Sat by Pulse 95 97 Oximetry ED Medical Decision Making - Lab Data Result diagrams: 06/18/20 09:03 06/18/20 10:37 Lab Results 06/18/20 06/18/20 Range/Units 09:03 09:03 WBC 4.9 (4.5-11.0) K/mm3 RBC 4.33 (3.65-5.03) M/mm3 Hgb 12.8 (11.8-15.2) gm/dl Hct 37.7 (35.5-45.6) % MCV 87 (84-94) fl MCH 30 (28-32) pg MCHC 34 (32-34) % RDW 14.4 (13.2-15.2) % Plt Count 130 L (140-440) K/mm3 Lymph % (Auto) 10.4 L (13.4-35.0) % [place] % (Auto) 9.7 H (0.0-7.3) % Eos % (Auto) 0.0 (0.0-4.3) % Baso % (Auto) 2.2 H (0.0-1.8) % Lymph # (Auto) 0.5 L (1.2-5.4) K/mm3 [place] # (Auto) 0.5 (0.0-0.8) K/mm3 Eos # (Auto) 0.0 (0.0-0.4) K/mm3 Baso # (Auto) 0.1 (0.0-0.1) K/mm3 Seg Neutrophils % 77.7 H (40.0-70.0) % Seg Neutrophils # 3.8 (1.8-7.7) K/mm3 Sodium 132 L (137-145) mmol/L Potassium 4.2 (3.6-5.0) mmol/L Chloride 99.5 (98-107) mmol/L Carbon Dioxide 21 L (22-30) mmol/L Anion Gap 16 mmol/L BUN 27 H (9-20) mg/dL Creatinine 1.7 H (0.8-1.3) mg/dL Estimated GFR 51 ml/min BUN/Creatinine Ratio 16 % Glucose 300 H (75-100) mg/dL Calcium 8.3 L (8.4-10.2) mg/dL Total Bilirubin 0.90 (0.1-1.2) mg/dL AST 33 (5-40) units/L ALT 23 (7-56) units/L Alkaline Phosphatase 99 (35-129) units/L Troponin T 0.052 H (0.00-0.029) ng/mL Total Protein 7.0 (6.3-8.2) g/dL Albumin 3.3 L (3.9-5) g/dL Albumin/Globulin Ratio 0.9 % Triglycerides 123 (2-149) mg/dL Cholesterol 122 (50-199) mg/dL LDL Cholesterol Direct 77 (50-130) mg/dL HDL Cholesterol 26 L (40-59) mg/dL Cholesterol/HDL Ratio 4.69 % Lipase 17 (13-60) units/L - EKG Data -: EKG Interpreted by Me EKG shows normal: sinus rhythm, axis (Left axis deviation), intervals (Left axis deviation), QRS complexes (Q waves to the septal and inferior leads), ST-T waves Rate: normal - EKG Data When compared to previous EKG there are: no significant change Interpretation: unchanged when compared t (05/10/19) - Radiology Data Radiology results: image reviewed interpreted by me: Chest x-ray shows some patchy infiltrates to the bilateral lower lungs. No pleural effusions. No pneumothorax. - Medical Decision Making This patient presents to the emergency department with a complaint of subjective fever, chills, body aches, coughing causing left-sided chest/rib pain, shortness of breath. Overall this sounds concerning for a upper respiratory infection and/or viral syndrome, but given the current pandemic COVID-19 is in the differential. Chest x-ray shows bilateral patchy infiltrates to the bilateral lower lung [place]. An EKG was done that does not have any morphology consistent with ST elevation myocardial infarction. The patient's first troponin came back slightly elevated at 0.052. Patient does have a history of elevated troponin levels and this may be a due to chronic troponin leak. However, given the left-sided chest/rib pain and the slightly elevated troponin, the patient will be admitted to the hospital for further evaluation and treatment. Covid labs were added and the patient does have some elevation in the inflammatory markers such as D-dimer, ferritin, CRP and LDH. Patient was given aspirin for the elevated troponin. He was started on IV antibiotics for the bilateral pneumonia. The patient was accepted for admission by the hospitalist service and Dr. Hidalgo. Critical Care Time: No Critical care attestation.: If time is entered above; I have spent that time in minutes in the direct care of this critically ill patient, excluding procedure time. ED Disposition Clinical Impression: Suspected 2019 novel coronavirus infection, Elevated troponin, POOL (acute kidney injury), History of CVA with residual deficit, History of coronary artery disease Pneumonia Qualifiers: Pneumonia type: due to unspecified organism Laterality: bilateral Lung location: lower lobe of lung Qualified Code(s): J18.9 - Pneumonia, unspecified organism Disposition: OP ADMIT IP TO THIS HOSP Is pt being admited?: Yes Condition: Fair Time of Disposition: 10:30
[2020-06-18 09:30] LABS: Basophils # (Auto) 0.1 K/mm3 (0.0-0.1); Basophils % (Auto) 2.2 % (0.0-1.8); Hematocrit 37.7 % (35.5-45.6); Hemoglobin 12.8 gm/dl (11.8-15.2); Lymphocytes # (Auto) 0.5 K/mm3 (1.2-5.4); Lymphocytes % (Auto) 10.4 % (13.4-35.0); Mean Corpuscular HGB Conc 34 % (32-34); Mean Corpuscular Volume 87 fl (84-94); Monocytes # (Auto) 0.5 K/mm3 (0.0-0.8); Monocytes % (Auto) 9.7 % (0.0-7.3); Platelet Count 130 K/mm3 (140-440); Red Blood Count 4.33 M/mm3 (3.65-5.03); Red Cell Distribution Width 14.4 % (13.2-15.2)
[2020-06-18 09:36] LABS: Albumin 3.3 g/dL (3.9-5); Calcium 8.3 mg/dL (8.4-10.2)
[2020-06-18] MEDS ORDERED: ASPIRIN 81 MG TAB CHEW PO ONE (09:42)
[2020-06-18 09:49] LABS: Chol/HDL Ratio 4.69 %
--- NOTE | 2020-06-18 10:25 | XRay Report ---
CHEST 1 VIEW 06/18/2020 9:13 AM INDICATION / CLINICAL INFORMATION: cough. COMPARISON: 01/12/18. FINDINGS: SUPPORT DEVICES: None. HEART / MEDIASTINUM: No significant abnormality. LUNGS / PLEURA: Increased perihilar lower lobe opacities. No pneumothorax. ADDITIONAL FINDINGS: No significant additional findings. IMPRESSION: 1. Increased bilateral perihilar lower lobe opacities. Signer Name: Joel Dc MD Signed: 06/18/2020 10:20 AM Workstation Name: [id number]
[2020-06-18] MEDS ORDERED: cefTRIAXone/NS 1 GM/50 ML 1 GM/50 ML BAG IV ONE (10:27)
[2020-06-18] MEDS ORDERED: AZITHROMYCIN/NS 500 MG/250 ML 500 MG/250 ML BAG IV ONE (10:27)
[2020-06-18 11:17] LABS: C-Reactive Protein 6.1 mg/dL (0.00-1.30)
--- NOTE | 2020-06-18 14:27 | History and Physical Report ---
History of Present Illness Date of examination: 06/18/20 Date of admission: 06/18/20 10:30 Chief complaint: Generalized fatigue and weakness History of present illness: This is a 54-year-old -[place] male presents to the emergency department from home with complaint of a 3 to 4-day history of chills, generalized fatigue/weakness, a mixed dry and productive cough, nausea with vomiting, decreased appetite. The patient's , who works at [employer], says that she was recently sick with similar symptoms but she has improved while the patient has not. Eating food increases his nausea and makes him vomit. However he has been able to drink green tea and water to stay hydrated. No obvious fever but the patient has felt warm as if he has a fever. He has been using Wilkins's for his cough. No recent travel. He has a past medical history of hypertension, CVA with residual left-sided weakness, insulin-dependent diabetes, and coronary artery disease with cardiac stents. His primary care physician is Dr. 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 He denies any tobacco or illicit drug use. - Past Medical History Hx Hypertension: Yes Hx CVA: Yes (LUE and LLE weakness) Hx Heart Attack/AMI: Yes Hx Congestive Heart Failure: No Hx Diabetes: Yes Hx GERD: Yes Hx Asthma: No Hx COPD: No - Surgical History Hx Coronary Stent: Yes (26 March 2016) Hx Pacemaker: No Additional Surgical History: tonsillectomy (long time ago) - Social History Smoking Status: Never Smoker Substance Use Type: None Review of System: Constitutional:chills, fever (subjective), weakness Ears, eyes, nose, mouth and throat: no nasal congestion, no nasal discharge, no sinus pressure, no vision change, no red eye. Neck: No neck pain or rigidity. Cardiovascular: No chest pain, no orthopnea, no palpitations, no leg swelling Respiratory: No shortness of breath, + cough, no congestion, no wheezing Gastrointestinal: no abdominal pain, + nausea, + vomiting Genitourinary : no dysuria, no hematuria Musculoskeletal: no joint swelling, + muscle ache Integumentary: no rash, no pruritis Neurological: no parathesias, no numbness, no tingling Endocrine: no cold or heat intolerance, no polyuria or polydipsia Hematologic/Lymphatic: no easy bruising, no easy bleeding, no gland swelling Allergic/Immunologic: no urticaria, no angioedema. Medications and Allergies Allergies Allergy/AdvReac Type Severity Reaction Status Date / Time vitamin K2 Allergy Intermediate Swelling Verified 06/18/20 08:27 shellfish derived Allergy Shortness Verified 06/18/20 08:27 of Breath Home Medications Medication Instructions Recorded Confirmed Last Taken Type Baclofen [Lioresal] 5 mg PO TID #45 tablet 09/16/15 06/18/20 2 Weeks Ago Rx ~01/04/18 Clopidogrel [Plavix] 75 mg PO QDAY #30 tablet 09/16/15 06/18/20 2 Weeks Ago Rx ~01/04/18 Glimepiride [Amaryl] 4 mg PO QDDIAB #30 tablet 09/16/15 06/18/20 2 Weeks Ago Rx ~01/04/18 amLODIPine 10 mg PO QDAY #30 tablet 09/16/15 06/18/20 2 Weeks Ago Rx ~01/04/18 Aspirin 325 mg PO QDAY #30 tablet 03/27/16 06/18/20 2 Weeks Ago Rx ~01/04/18 Metoprolol [Lopressor TAB] 25 mg PO BID #60 tablet 03/27/16 06/18/20 2 Weeks Ago Rx ~01/04/18 Insulin Glargine [Lantus VIAL] 25 units SUB-Q QHS 06/21/17 06/18/20 2 Weeks Ago History ~01/04/18 cloNIDine [Catapres] 0.1 mg PO TID 06/21/17 06/18/20 2 Weeks Ago History ~01/04/18 Insulin Aspart Prot/Insuln Asp 25 unit SQ BID 06/18/20 06/18/20 Unknown History [Novolog Mix 70-30 Flexpen] Isosorb Dinit/Hydralazine [Bidil 1 tab PO BID 06/18/20 06/18/20 Unknown History 20/37.5MG] Active Meds: Active Medications Amlodipine Besylate (Amlodipine 10 Mg Tab) 10 mg PO QDAY SAUL Aspirin (Aspirin 325 Mg Tab) 325 mg PO QDAY SAUL Clopidogrel Bisulfate (Clopidogrel 75 Mg Tab) 75 mg PO QDAY SAUL Metoprolol Tartrate (Metoprolol Tartrate 25 Mg Tab) 25 mg PO BID SAUL Miscellaneous Medication (Insulin Aspart Prot/Insuln Asp [Novolog Mix 70-30 Flexpen]) 25 unit SQ BID SAUL Exam - Physical Exam Narrative exam: Limited physical exam due to COVID-19 pandemic to minimize transmission of the disease and to preserve PPE. Vital reviewed and stable. GENERAL: well-developed well-nourished obese AAM lying on bed appeared to be in no discomfort. HEENT: Normocephalic. Atraumatic. NECK: Supple. CHEST/LUNGS: breathing nonlabored. HEART/CARDIOVASCULAR: Heart rate stable on telemetry ABDOMEN: Visibly not distended SKIN: There is no rash NEURO: left sided weakness. Follows command. MUSCULOSKELETAL: No joint effusion EXTRIMITY: No swelling, no cyanosis or clubbing. PSYCH: Cooperative. - Constitutional Vitals: Temp Pulse Resp BP Pulse Ox 99.2 F 89 18 134/79 96 06/18/20 07:28 06/18/20 11:44 06/18/20 11:44 06/18/20 11:44 06/18/20 11:44 HEART Score - HEART Score Troponin: Troponin T 0.052 ng/mL (0.00-0.029) H 06/18/20 09:03 Results - Labs CBC & Chem 7: 06/18/20 09:03 06/19/20 09:56 Labs: Abnormal lab results 06/18/20 06/18/20 06/18/20 Range/Units 09:03 09:03 09:03 Plt Count 130 L (140-440) K/mm3 Lymph % (Auto) 10.4 L (13.4-35.0) % [place] % (Auto) 9.7 H (0.0-7.3) % Baso % (Auto) 2.2 H (0.0-1.8) % Lymph # (Auto) 0.5 L (1.2-5.4) K/mm3 Seg Neutrophils % 77.7 H (40.0-70.0) % D-Dimer (0-234) ng/mlDDU Sodium 132 L (137-145) mmol/L Carbon Dioxide 21 L (22-30) mmol/L BUN 27 H (9-20) mg/dL Creatinine 1.7 H (0.8-1.3) mg/dL Glucose 300 H (75-100) mg/dL Calcium 8.3 L (8.4-10.2) mg/dL Ferritin (30.0-300.0) ng/mL Lactate Dehydrogenase (91-180) units/L Troponin T 0.052 H (0.00-0.029) ng/mL C-Reactive Protein (0.00-1.30) mg/dL Albumin 3.3 L (3.9-5) g/dL HDL Cholesterol 26 L (40-59) mg/dL TSH 0.260 L (0.270-4.200) mlU/mL 06/18/20 06/18/20 06/18/20 Range/Units 10:37 10:37 10:37 Plt Count (140-440) K/mm3 Lymph % (Auto) (13.4-35.0) % [place] % (Auto) (0.0-7.3) % Baso % (Auto) (0.0-1.8) % Lymph # (Auto) (1.2-5.4) K/mm3 Seg Neutrophils % (40.0-70.0) % D-Dimer 368.8 H (0-234) ng/mlDDU Sodium (137-145) mmol/L Carbon Dioxide (22-30) mmol/L BUN (9-20) mg/dL Creatinine (0.8-1.3) mg/dL Glucose 297 H (75-100) mg/dL Calcium (8.4-10.2) mg/dL Ferritin 324.3 H (30.0-300.0) ng/mL Lactate Dehydrogenase 348 H (91-180) units/L Troponin T (0.00-0.029) ng/mL C-Reactive Protein 6.10 H (0.00-1.30) mg/dL Albumin (3.9-5) g/dL HDL Cholesterol (40-59) mg/dL TSH (0.270-4.200) mlU/mL - Imaging and Cardiology Chest x-ray: report reviewed Assessment and Plan Covid PUI -Chest x-ray showed increased perihilar and lower lobe opacities -Patient placed on Covid protocol, continue to follow inflammatory markers -Follow calcitonin level, empiric antibiotics for now Hypertension, resume home meds, monitor BP History of CVA, continue aspirin Plavix and statin COPD with mild exacerbation -Continue empiric steroid, empiric antibiotics and nebulizer breathing treatments GERD, continue home regimen of PPI Diabetes mellitus type 2 -Monitor blood glucose QA [facility] and start home insulin regimen with SSI Coronary artery disease -Continue routine home cardiac medications POOL, likely vasomotor nephropathy - monitor BMP, avoid nephrotoxins NSTEMI type II -Likely due to POOL, and underlying pneumonia -Follow with serial troponin, order 2D echocardiogram Morbid obesity, weight reduction diet and exercise counseling when clinically more stable as outpatient DVT prophylaxis, Lovenox
[2020-06-18] MEDS ORDERED: cefTRIAXone/NS 1 GM/50 ML 1 GM/50 ML BAG IV SCH (15:00)
[2020-06-18] MEDS ORDERED: IPRATROPIUM/ALBUTEROL SULFATE 3 ML AMPUL.NEB IH SCH (20:00)
[2020-06-18] MEDS: INSULIN NPH/REGULAR 70/30 INJ SUB-Q SCH (20:24)
[2020-06-18] MEDS ORDERED: ALBUTEROL 8.5 GM MDI INHALATION IH PRN (21:48)
[2020-06-18] MEDS ORDERED: INSULN ASP SQ SCH (22:00)
[2020-06-18] MEDS ORDERED: INSULIN ASPART PROT SQ SCH (22:00)
[2020-06-18] MEDS ORDERED: [UNRECOGNIZED DRUG - OTHER] SQ SCH (22:00)
[2020-06-18] MEDS ORDERED: ENOXAPARIN 40 MG/0.4 ML INJ SUB-Q SCH (22:00)
[2020-06-18] MEDS: INSULIN LISPRO 100 UNIT/ML SUB-Q SCH (22:03)
[2020-06-18] MEDS: cefTRIAXone/NS 1 GM/50 ML 1 GM/50 ML BAG IV SCH (22:11)
[2020-06-18] MEDS: METOPROLOL TARTRATE 25 MG TAB PO SCH (22:12)
[2020-06-18] MEDS ORDERED: ACETAMINOPHEN 325 MG TAB PO ONE (22:29)
[2020-06-18] MEDS: guaiFENesin 100 MG/5 ML ORAL LIQD PO PRN (23:26)
[2020-06-19] MEDS: guaiFENesin 100 MG/5 ML ORAL LIQD PO PRN (05:13)
[2020-06-19] MEDS: INSULIN LISPRO 100 UNIT/ML SUB-Q SCH ×4 (07:30→23:03)
[2020-06-19] MEDS: INSULIN NPH/REGULAR 70/30 INJ SUB-Q SCH ×2 (08:00→17:43)
[2020-06-19] MEDS: amLODIPine 10 MG TAB PO SCH (10:16)
[2020-06-19] MEDS: cefTRIAXone/NS 1 GM/50 ML 1 GM/50 ML BAG IV SCH (10:16)
[2020-06-19] MEDS: METOPROLOL TARTRATE 25 MG TAB PO SCH (10:16)
[2020-06-19] MEDS: ASPIRIN 325 MG TAB PO SCH (10:16)
[2020-06-19] MEDS: CLOPIDOGREL 75 MG TAB PO SCH (10:16)
[2020-06-19 10:30] LABS: BUN/Creatinine Ratio 15; Blood Urea Nitrogen 20 mg/dL (9-20); Calcium 8.2 mg/dL (8.4-10.2); Hemolysis Index 48
[2020-06-19] MEDS: ISOSORB DINIT/HYDRALAZINE 20-37.5MG TAB PO SCH ×2 (11:07→22:05)
[2020-06-19] MEDS: ACETAMINOPHEN 325 MG TAB PO PRN (11:08)
--- NOTE | 2020-06-19 12:26 | Consultation ---
History of Present Illness Consult date: 06/19/20 Requesting physician: ANGELIQUE MARQUEZ Reason for consult: hypoxemia, other (PUI COVID-19; Acute Hypoxemic Respiratory Failure) History of present illness: PCCM CONSULT NOTE (Full dictation # [id number]) Please see dictated notes for full details Medications and Allergies Allergies Allergy/AdvReac Type Severity Reaction Status Date / Time vitamin K2 Allergy Intermediate Swelling Verified 06/18/20 08:27 shellfish derived Allergy Shortness Verified 06/18/20 08:27 of Breath Home Medications Medication Instructions Recorded Confirmed Last Taken Type Baclofen [Lioresal] 5 mg PO TID #45 tablet 09/16/15 06/18/20 2 Weeks Ago Rx ~01/04/18 Clopidogrel [Plavix] 75 mg PO QDAY #30 tablet 09/16/15 06/18/20 2 Weeks Ago Rx ~01/04/18 Glimepiride [Amaryl] 4 mg PO QDDIAB #30 tablet 09/16/15 06/18/20 2 Weeks Ago Rx ~01/04/18 amLODIPine 10 mg PO QDAY #30 tablet 09/16/15 06/18/20 2 Weeks Ago Rx ~01/04/18 Aspirin 325 mg PO QDAY #30 tablet 03/27/16 06/18/20 2 Weeks Ago Rx ~01/04/18 Metoprolol [Lopressor TAB] 25 mg PO BID #60 tablet 03/27/16 06/18/20 2 Weeks Ago Rx ~01/04/18 Insulin Glargine [Lantus VIAL] 25 units SUB-Q QHS 06/21/17 06/18/20 2 Weeks Ago History ~01/04/18 cloNIDine [Catapres] 0.1 mg PO TID 06/21/17 06/18/20 2 Weeks Ago History ~01/04/18 Insulin Aspart Prot/Insuln Asp 25 unit SQ BID 06/18/20 06/18/20 Unknown History [Novolog Mix 70-30 Flexpen] Isosorb Dinit/Hydralazine [Bidil 1 tab PO BID 06/18/20 06/18/20 Unknown History 20/37.5MG] Active Meds: Active Medications Acetaminophen (Acetaminophen 325 Mg Tab) 650 mg PO Q4H PRN PRN Reason: Pain MILD(1-3)/Fever >100.5/VACA Last Admin: 06/19/20 11:08 Dose: 650 mg Documented by: Albuterol (Albuterol 8.5 Gm Mdi Inhalation) 2 puff IH Q6HRT PRN PRN Reason: Shortness Of Breath Last Admin: 06/19/20 09:33 Dose: 2 spray Documented by: Amlodipine Besylate (Amlodipine 10 Mg Tab) 10 mg PO QDAY [facility] Last Admin: 06/19/20 10:16 Dose: 10 mg Documented by: Ascorbic Acid (Ascorbic Acid 500 Mg Tab) 1,000 mg PO BID [facility] Aspirin (Aspirin 325 Mg Tab) 325 mg PO QDAY [facility] Last Admin: 06/19/20 10:16 Dose: 325 mg Documented by: Cholecalciferol (Cholecalciferol (Vit D3) 5,000 Unit Tab) 5,000 unit PO DAILY [facility] Clonidine HCl (Clonidine 0.1 Mg Tab) 0.1 mg PO TID [facility] Clopidogrel Bisulfate (Clopidogrel 75 Mg Tab) 75 mg PO QDAY [facility] Last Admin: 06/19/20 10:16 Dose: 75 mg Documented by: Enoxaparin Sodium (Enoxaparin 40 Mg/0.4 Ml Inj) 40 mg SUB-Q QDAY@2200 [facility]; Protocol Last Admin: 06/18/20 22:13 Dose: 40 mg Documented by: Guaifenesin (Guaifenesin 100 Mg/5 Ml Oral Liqd) 200 mg PO Q4H PRN PRN Reason: Cough Last Admin: 06/19/20 05:13 Dose: 200 mg Documented by: Azithromycin (Zithromax/Ns) 500 mg in 250 mls @ 250 mls/hr IV Q24H [facility] Ceftriaxone Sodium (Rocephin/Ns 1 Gm/50 Ml) 1 gm in 50 mls @ 100 mls/hr IV Q12HR [facility]; Protocol Last Admin: 06/19/20 10:16 Dose: 100 mls/hr Documented by: Insulin Human Isoph/Insulin Regular (Insulin Nph/Regular 70/30 Inj) 10 unit SUB-Q BIDDIAB [facility] Insulin Human Lispro (Insulin Lispro 100 Unit/Ml) 0 unit SUB-Q ACHS [facility]; Protocol Last Admin: 06/19/20 11:30 Dose: Not Given Documented by: Isosorbide Dinitrate/Hydralazine (Isosorb Dinit/Hydralazine 20-37.5mg Tab) 1 each PO BID [facility] Last Admin: 06/19/20 11:07 Dose: 1 each Documented by: Methylprednisolone Sodium Succinate (Methylprednisolone Sod Succinate 125 Mg/2 Ml Inj) 60 mg IV Q8HR [facility] Metoprolol Tartrate (Metoprolol Tartrate 25 Mg Tab) 12.5 mg PO BID [facility] Zinc Sulfate (Zinc Sulfate 220 Mg Cap) 220 mg PO BID [facility] Physical Examination Vital signs: Vital Signs Temp Pulse Resp BP Pulse Ox 99.2 F 102 H 22 111/66 95 06/18/20 07:28 06/18/20 07:28 06/18/20 07:28 06/18/20 07:28 06/18/20 07:28 Results - Laboratory Findings CBC and BMP: 06/18/20 09:03 06/19/20 09:56 PT/INR, D-dimer D-Dimer 368.8 ng/mlDDU (0-234) H 06/18/20 10:37 Abnormal lab findings: Abnormal Labs 06/18/20 06/18/20 06/18/20 09:03 09:03 09:03 Plt Count 130 L Lymph % (Auto) 10.4 L [place] % (Auto) 9.7 H Baso % (Auto) 2.2 H Lymph # (Auto) 0.5 L Seg Neutrophils % 77.7 H D-Dimer Sodium 132 L Carbon Dioxide 21 L BUN 27 H Creatinine 1.7 H Glucose 300 H POC Glucose Calcium 8.3 L Ferritin Lactate Dehydrogenase Troponin T 0.052 H C-Reactive Protein Albumin 3.3 L HDL Cholesterol 26 L TSH 0.260 L 06/18/20 06/18/20 06/18/20 10:37 10:37 10:37 Plt Count Lymph % (Auto) [place] % (Auto) Baso % (Auto) Lymph # (Auto) Seg Neutrophils % D-Dimer 368.8 H Sodium Carbon Dioxide BUN Creatinine Glucose 297 H POC Glucose Calcium Ferritin 324.3 H Lactate Dehydrogenase 348 H Troponin T C-Reactive Protein 6.10 H Albumin HDL Cholesterol TSH 06/18/20 06/19/20 16:53 09:56 Plt Count Lymph % (Auto) [place] % (Auto) Baso % (Auto) Lymph # (Auto) Seg Neutrophils % D-Dimer Sodium 135 L Carbon Dioxide 21 L BUN Creatinine Glucose 125 H POC Glucose 236 H Calcium 8.2 L Ferritin Lactate Dehydrogenase Troponin T C-Reactive Protein Albumin HDL Cholesterol TSH
--- NOTE | 2020-06-19 12:58 | Progress Note ---
Assessment and Plan This is a 54-year-old -Algerian male presented from home on 06/18/20 with complaint of a 3 to 4-day history of chills, generalized fatigue/weakness, a mixed dry and productive cough, nausea with vomiting, decreased appetite. Acute hypoxic respiratory failure, not POA -Due to underlying pneumonia and COPD exacerbation, was on RA during admission -Follow Covid result, continue empiric antibiotics, empiric steroid and nebulizer breathing treatment -Continue supplemental O2 to keep oxygen saturation greater than 94% Covid 19 PNA -Chest x-ray showed increased perihilar and lower lobe opacities -Patient placed on Covid protocol, continue to follow inflammatory markers -start remdesivir, steroid, vit D/C, zinc - consult ID, stop abx as procalcitonin is normal Hypertension, resume home meds, monitor BP History of CVA, continue aspirin Plavix and statin COPD with mild exacerbation -Continue empiric steroid, empiric antibiotics and nebulizer breathing treatments GERD, continue home regimen of PPI Diabetes mellitus type 2 -Monitor blood glucose QA [facility] and start home insulin regimen with SSI Coronary artery disease -Continue routine home cardiac medications POOL, likely vasomotor nephropathy - monitor BMP, avoid nephrotoxins NSTEMI type II -Likely due to POOL, and underlying pneumonia -Follow with serial troponin, order 2D echocardiogram Morbid obesity, weight reduction diet and exercise counseling when clinically more stable as outpatient DVT prophylaxis, Lovenox Daily course: 06/19: Patient placed on high flow O2 o/n. positive for covid result. spiking temp. pulmonary consult, ID consult, continue remdesivir and empiric steroid. Subjective Date of service: 06/19/20 Interval history: Patient seen and examined Patient placed on 50% FiO2 with Ventimask Covid test pending Vitals noted Discussed with RN Objective - Exam Narrative Exam: Limited physical exam due to COVID-19 pandemic to minimize transmission of the disease and to preserve PPE. Vital reviewed and stable. GENERAL: well-developed well-nourished obese AAM lying on bed appeared to be in mild discomfort. HEENT: Normocephalic. Atraumatic. NECK: Supple. CHEST/LUNGS: breathing with Ventimask HEART/CARDIOVASCULAR: Heart rate stable on telemetry ABDOMEN: Visibly not distended SKIN: There is no rash NEURO: left sided weakness. Follows command. MUSCULOSKELETAL: No joint effusion EXTRIMITY: No swelling, no cyanosis or clubbing. PSYCH: Cooperative. - Constitutional Vitals: Vital Signs - 12hr 06/19/20 06/19/20 06/19/20 03:40 04:50 08:00 Temperature 100.1 F H Pulse Rate 85 Pulse Rate [ Anterior Bilateral Throughout] Respiratory 20 Rate Respiratory Rate [Anterior Bilateral Throughout] Blood Pressure 154/80 Blood Pressure [Right] O2 Sat by Pulse 96 90 94 Oximetry 06/19/20 06/19/20 06/19/20 09:35 10:16 10:22 Temperature 102.5 F H Pulse Rate 94 H 94 H Pulse Rate [ 88 Anterior Bilateral Throughout] Respiratory 16 Rate Respiratory 22 Rate [Anterior Bilateral Throughout] Blood Pressure 175/86 Blood Pressure 175/86 [Right] O2 Sat by Pulse 100 Oximetry 06/19/20 12:00 Temperature Pulse Rate Pulse Rate [ Anterior Bilateral Throughout] Respiratory Rate Respiratory Rate [Anterior Bilateral Throughout] Blood Pressure Blood Pressure [Right] O2 Sat by Pulse 99 Oximetry - Labs CBC & Chem 7: 06/18/20 09:03 06/19/20 09:56 Labs: Abnormal lab results 06/18/20 06/18/20 06/19/20 Range/Units 09:03 16:53 09:56 Sodium 135 L (137-145) mmol/L Carbon Dioxide 21 L (22-30) mmol/L Glucose 125 H (75-100) mg/dL POC Glucose 236 H (70-105) mg/dL Calcium 8.2 L (8.4-10.2) mg/dL TSH 0.260 L (0.270-4.200) mlU/mL HEART Score - HEART Score Troponin: Troponin T 0.052 ng/mL (0.00-0.029) H 06/18/20 09:03
[2020-06-19] MEDS: methylPREDNISolone Sod Succinate 125 MG/2 ML INJ IV SCH ×2 (14:14→22:07)
[2020-06-19] MEDS: cloNIDine 0.1 MG TAB PO SCH ×2 (14:15→22:06)
[2020-06-19] MEDS ORDERED: AZITHROMYCIN/NS 500 MG/250 ML 500 MG/250 ML BAG IV SCH (15:00)
--- NOTE | 2020-06-19 15:06 | Consultation ---
PULMONARY CRITICAL CARE CONSULT NOTE CONSULTING PHYSICIAN: Marck Clarke MD REASON FOR CONSULTATION: Acute respiratory distress, acute hypoxemic respiratory failure. CHIEF COMPLAINT AND HISTORY OF PRESENT ILLNESS: The patient is a now 54-year-old male, morbidly obese with past medical history significant for a cerebrovascular accident that left him with left hemiparesis, came into the Emergency Room complaining of 3-4 days of history of chills, generalized fatigue and weakness, cough that was mostly dry, but he did cough up some streaky hemoptysis yesterday before presentation. He also complained of nausea and vomiting, decreased appetite. His who works at [employer] says that she was recently sick with similar symptoms, but she had improved and her had not. He denied any real abdominal pain. He felt like he was warm, did not check his temperature. He has no known contact with anyone with COVID-19 infection. He is a lifelong nonsmoker, he tells me. 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 He is making appointments to see them, but decided to come in and get checked. In the Emergency Room, he was evaluated, indeed he was found to be hypoxemic and was admitted as a person under investigation for COVID-19 infection. We are asked to assist with management. When I stopped by to see him, he was sitting on the side of the bed, feeling a little bit better. He was on high flow nasal cannula with a flow of 30 liters and 55% FiO2. He denied any chest pain and denied palpitations. He admits to history of snoring. He has never been tested for obstructive sleep apnea even after he had his cerebrovascular accident. He does have left lower extremity swelling, but states that, that has been since he had a stroke about 4 years ago. This really is the much of the history of presentation as I have. PAST MEDICAL HISTORY: Again, significant for a diagnosis of hypertension, morbid obesity, cerebrovascular accident, history of coronary artery disease, history of diabetes, history of gastroesophageal reflux disease. Again, he is morbidly obese. PAST SURGICAL HISTORY: He has had coronary artery stenting x 2 in 03/2016. He has had a tonsillectomy. MEDICATIONS: He was on at the time I stopped by to see him were reviewed. Pertinent medications included the following: He was on Tylenol 650 mg p.o. q. 4 hours p.r.n. mild pain or fevers, albuterol 2 puff nebulized q. 6 hours p.r.n. shortness of breath, amlodipine 10 mg p.o. daily, vitamin C 1 gram p.o. b.i.d., aspirin 325 mg p.o. daily, azithromycin 500 mg IV daily. He is on Rocephin 2 g IV q. 12 hours, vitamin D3 5000 units p.o. daily, clonidine 0.1 mg p.o. t.i.d., Plavix 75 mg p.o. daily, Lovenox 40 mg subcutaneous daily, insulin 70/30 at 10 units subcutaneous b.i.d., Imdur/hydralazine (BiDil) 20/37.5 mg 1 tablet p.o. b.i.d., Solu-Medrol 60 mg IV q. 8 hours, metoprolol 50 mg p.o. b.i.d. and zinc sulfate 220 mg p.o. b.i.d. ALLERGIES: VITAMIN K2 AND SHELLFISH DERIVED PRODUCTS. Nature of this allergy is unknown. DIET: Morbidly obese. Denies acute weight loss or gain in the preceding few weeks to months. FAMILY AND SOCIAL HISTORY: Lives in the community. He is . Denies alcohol, tobacco, or illicit drug use or abuse. FAMILY HISTORY: Otherwise, noncontributory. REVIEW OF SYSTEMS: No loss of consciousness. No new onset seizures. No new onset focal weakness. Denies gross hematochezia or melena. Denies gross hematuria or dysuria. He denied orthopnea. He denied paroxysmal nocturnal dyspnea. He denies any new onset seizures. He denies heat or cold intolerance, polydipsia or polyuria. Complete 13-system review of systems obtained. Pertinent positives and/or negatives as in body of history above. I should mention he has been having fevers. PHYSICAL EXAMINATION: VITAL SIGNS: On examination at presentation, he had a fever of 99.2 degrees Fahrenheit, pulse of 102, respiratory rate of 22, blood pressure 111/66 and O2 sats of 95% at that time on 55% high flow nasal cannula. He has had a fever recently of 102.5 degrees Fahrenheit and has been as high as 102.8 since he has been admitted. GENERAL: He is a middle-aged, morbidly obese male. Normocephalic, atraumatic, talking to me with mildly increased respiratory effort at rest. HEAD, EYES, EARS, NOSE AND THROAT: Anicteric. No conjunctival erythema. Oropharynx was moist. Mallampati #4 oropharynx. No gross jugular venous distention, no thyromegaly. He does have a large neck circumference. Grossly, there were no palpable lymph nodes in the supraclavicular or submandibular lymph node chains. LUNGS: Auscultation of both lung valdez are significant for diminished breath sounds, faint inspiratory rhonchi in particular in the bases. No wheezing. HEART: Heart sounds 1 and 2 are heard. They were regular in rate and rhythm at the time of my evaluation without overt rubs or murmurs. ABDOMEN: Soft, full, protuberant. Bowel sounds are positive, nontender, no palpable hepatosplenomegaly. EXTREMITIES: Without overt digital clubbing or cyanosis and really no significant pedal edema. The left lower extremity is significantly enlarged, almost twice the size of the right lower extremity. NEUROLOGIC: Pupils are equal, round, about 4 mm, reactive to light. Extraocular muscle movements were intact. He has a left hemiparesis with some contracture of the left upper extremity. SKIN: Normal turgor in the areas I examined without overt cellulitis. He has stasis dermatitis type rash to the lower extremity. Please see the wound care nurse's notes for full description of his skin. PSYCHIATRIC: Mood was normal. Affect was cooperative. He had intact judgment and insight. LABORATORY DATA: From my review are as follows: Admission white cell count 4900, hemoglobin 12.8, hematocrit 37.7, platelet count 130. No manual differential. D-dimer elevated at 369. Serum sodium 132, potassium 4.2, chloride 99.5, bicarbonate 21, BUN 27, creatinine 1.7, glucose 297. Ferritin was elevated at 323. AST, ALT, liver function tests essentially within normal limits. Troponin was up at 0.052. LDH was up at 348. CRP was slightly elevated at 6.1. Procalcitonin unremarkable at 0.3. TSH was low at 0.26. Two sets of blood cultures are no growth to date. Chest x-ray was done, it shows borderline cardiomegaly, perihilar and bibasilar predominant infiltrates. No gross pneumothorax. He does have an element of hypoventilation. No gross bony fractures that I can see. ASSESSMENT: 1. Acute hypoxemic respiratory failure. 2. Person under investigation for COVID-19 infection. 3. Bilateral pneumonia. 4. Morbid obesity. 5. History of cerebrovascular accident. 6. History of diabetes. 7. Gastroesophageal reflux disease. 8. Hypertension. 9. History of coronary artery disease. 10. Acute kidney injury. 11. Mild hyponatremia. 12. Elevated serum inflammatory markers to include D-dimers and ferritin levels. PLAN: I do agree with COVID-19 precautions including airborne and contact isolation in the short time. I do agree with systemic steroids. We will hold on weight-based anticoagulation; however, I will be changing the Lovenox dosing twice to b.i.d. just based on the obesity alone. I will get bilateral lower extremity Dopplers as part of a venous thromboembolic disorder workup. I will hold on further VTE workup at this time. I have told him he will benefit from Sleep Clinic evaluation post-discharge. Acute coronary syndrome evaluation is also appropriate with elevated serum troponins. I do agree with empiric community-acquired pneumonia therapy. Oxygen will be weaned to keep sats greater than or equal to about 92%. I will hold on empiric bilevel positive airway pressure ventilation therapy, but it will be on a p.r.n. basis. He is appropriately on zinc and vitamin C supplementation. He is also appropriately on DVT prophylaxis. I will also be putting him on GI prophylaxis. Flu and pneumonia vaccination will be addressed per protocol. Thank you very much for the consult. We will follow along and make further recommendations as picture progresses/becomes clearer. He is critically ill on life-sustaining interventions including the high flow oxygen treatment at high risk of from cardiopulmonary system decompensation. At this point, I have spent about 35 minutes of critical care time without overlap and excluding any procedural time that may be necessary. JOB# [id number] SHADI/JONH CHIANG
--- NOTE | 2020-06-19 16:36 | Consultation ---
History of Present Illness - Reason for Consult Consult date: 06/19/20 - History of Present Illness 54-year-old man past medical history hypertension, DC, diabetes, CVA presented to the hospital complaining of chills, weakness, cough. This began approximately 4 days prior to admission was associated with nausea and vomiting and decreased appetite. He notes that his recently had similar symptoms that resolved. He also complains of subjective fevers. Otherwise no acute issues. Febrile to 102.5 with a white count of 4.9. COVID-19. Normal renal function, procalcitonin. Currently on remdesivir and methylprednisolone. Blood cultures no growth so far requiring high flow nasal cannula. Imaging personally reviewed: Chest x-ray: Bilateral lower lobe opacities Review of systems: Deferred to PPE conservation strategy. Past History Past Medical History: other (See HPI) Past Surgical History: No surgical history Social history: no significant social history Family history: no significant family history Medications and Allergies Allergies Allergy/AdvReac Type Severity Reaction Status Date / Time vitamin K2 Allergy Intermediate Swelling Verified 06/18/20 08:27 shellfish derived Allergy Shortness Verified 06/18/20 08:27 of Breath Home Medications Medication Instructions Recorded Confirmed Last Taken Type Baclofen [Lioresal] 5 mg PO TID #45 tablet 09/16/15 06/18/20 2 Weeks Ago Rx ~01/04/18 Clopidogrel [Plavix] 75 mg PO QDAY #30 tablet 09/16/15 06/18/20 2 Weeks Ago Rx ~01/04/18 Glimepiride [Amaryl] 4 mg PO QDDIAB #30 tablet 09/16/15 06/18/20 2 Weeks Ago Rx ~01/04/18 amLODIPine 10 mg PO QDAY #30 tablet 09/16/15 06/18/20 2 Weeks Ago Rx ~01/04/18 Aspirin 325 mg PO QDAY #30 tablet 03/27/16 06/18/20 2 Weeks Ago Rx ~01/04/18 Metoprolol [Lopressor TAB] 25 mg PO BID #60 tablet 03/27/16 06/18/20 2 Weeks Ago Rx ~01/04/18 Insulin Glargine [Lantus VIAL] 25 units SUB-Q QHS 06/21/17 06/18/20 2 Weeks Ago History ~01/04/18 cloNIDine [Catapres] 0.1 mg PO TID 06/21/17 06/18/20 2 Weeks Ago History ~01/04/18 Insulin Aspart Prot/Insuln Asp 25 unit SQ BID 06/18/20 06/18/20 Unknown History [Novolog Mix 70-30 Flexpen] Isosorb Dinit/Hydralazine [Bidil 1 tab PO BID 06/18/20 06/18/20 Unknown History 20/37.5MG] Active Meds: Active Medications Acetaminophen (Acetaminophen 325 Mg Tab) 650 mg PO Q4H PRN PRN Reason: Pain MILD(1-3)/Fever >100.5/VACA Last Admin: 06/19/20 11:08 Dose: 650 mg Documented by: Albuterol (Albuterol 8.5 Gm Mdi Inhalation) 2 puff IH Q6HRT PRN PRN Reason: Shortness Of Breath Last Admin: 06/19/20 09:33 Dose: 2 spray Documented by: Amlodipine Besylate (Amlodipine 10 Mg Tab) 10 mg PO QDAY [facility] Last Admin: 06/19/20 10:16 Dose: 10 mg Documented by: Ascorbic Acid (Ascorbic Acid 500 Mg Tab) 1,000 mg PO BID [facility] Aspirin (Aspirin 325 Mg Tab) 325 mg PO QDAY [facility] Last Admin: 06/19/20 10:16 Dose: 325 mg Documented by: Cholecalciferol (Cholecalciferol (Vit D3) 5,000 Unit Tab) 5,000 unit PO DAILY [facility] Clonidine HCl (Clonidine 0.1 Mg Tab) 0.1 mg PO TID [facility] Last Admin: 06/19/20 14:15 Dose: 0.1 mg Documented by: Clopidogrel Bisulfate (Clopidogrel 75 Mg Tab) 75 mg PO QDAY [facility] Last Admin: 06/19/20 10:16 Dose: 75 mg Documented by: Enoxaparin Sodium (Enoxaparin 40 Mg/0.4 Ml Inj) 40 mg SUB-Q BID [facility]; Protocol Famotidine (Famotidine 20 Mg Tab) 20 mg PO BID [facility] Guaifenesin (Guaifenesin 100 Mg/5 Ml Oral Liqd) 200 mg PO Q4H PRN PRN Reason: Cough Last Admin: 06/19/20 05:13 Dose: 200 mg Documented by: REMDESIVIR 200 mg/ Sodium (Chloride) 250 mls @ 500 mls/hr IV ONCE ONE Stop: 06/19/20 17:29 REMDESIVIR 100 mg/ Sodium (Chloride) 250 mls @ 500 mls/hr IV Q24HR@2100 [facility] Stop: 06/23/20 21:29 Insulin Human Isoph/Insulin Regular (Insulin Nph/Regular 70/30 Inj) 10 unit SUB-Q BIDDIAB [facility] Insulin Human Lispro (Insulin Lispro 100 Unit/Ml) 0 unit SUB-Q ACHS [facility]; Protocol Last Admin: 06/19/20 11:30 Dose: Not Given Documented by: Isosorbide Dinitrate/Hydralazine (Isosorb Dinit/Hydralazine 20-37.5mg Tab) 1 each PO BID [facility] Last Admin: 06/19/20 11:07 Dose: 1 each Documented by: Methylprednisolone Sodium Succinate (Methylprednisolone Sod Succinate 125 Mg/2 Ml Inj) 60 mg IV Q8HR [facility] Last Admin: 06/19/20 14:14 Dose: 60 mg Documented by: Metoprolol Tartrate (Metoprolol Tartrate 50 Mg Tab) 50 mg PO BID [facility] Sodium Chloride (Sodium Chloride 0.9% 50 Ml Ivpb) 50 ml IV Q24HR@2100 [facility] Stop: 06/22/20 21:01 Zinc Sulfate (Zinc Sulfate 220 Mg Cap) 220 mg PO BID [facility] Physical Examination - Physical Exam Narrative exam: Physical exam deferred due to PPE conservation strategy. Please refer to primary team's note. - Constitutional Vitals: Vital Signs Temp Pulse Resp BP Pulse Ox 98.4 F 86 16 131/79 99 06/19/20 14:13 06/19/20 14:15 06/19/20 14:13 06/19/20 14:15 06/19/20 14:13 Temperature -Last 24 Hours Temperature 98.4 F Temperature 102.5 F Temperature 100.1 F Temperature 102.8 F Results - Labs CBC & Chem 7: 06/18/20 09:03 06/19/20 09:56 Labs: Abnormal lab results 06/18/20 06/19/20 06/19/20 Range/Units 16:53 09:56 11:42 Sodium 135 L (137-145) mmol/L Carbon Dioxide 21 L (22-30) mmol/L Glucose 125 H (75-100) mg/dL POC Glucose 236 H 125 H (70-105) mg/dL Calcium 8.2 L (8.4-10.2) mg/dL Coronavirus (PCR) (Negative) 06/19/20 06/19/20 Range/Units 13:54 Unknown Sodium (137-145) mmol/L Carbon Dioxide (22-30) mmol/L Glucose (75-100) mg/dL POC Glucose 164 H (70-105) mg/dL Calcium (8.4-10.2) mg/dL Coronavirus (PCR) Positive A (Negative) Assessment and Plan Cultures: Blood culture no growth so far A/P: 54-year-old man past medical history hypertension, DC, diabetes, CVA admitted with COVID-19 #Severe COVID-19 pneumonia: Patient presented with a week of symptoms, chest x- ray with diffuse bilateral infiltrates. Inflammatory markers elevated. #Acute hypoxemic respiratory failure: Likely secondary to COVID-19 infection. Currently on high flow nasal cannula #Diabetes: tight glycemic control for best outcomes. Recs: -Steroids per pulmonary for 10 days -Remdesivir 200 mg IV q day x 1 followed by 100 mg IV q day x 4 days. Monitor hepatic and renal function. -Obtain q48-72h inflammatory markers - ferritin, Ddimer, CRP, LDH -Anticoagulation per hospital protocol -Proning as able Thank you for the consult, we will continue to follow. MD [facility]ill[facility] O: [phone] F: [phone]
[2020-06-19] MEDS: SODIUM CHLORIDE 0.9% 50 ML IVPB IV SCH ×2 (16:39→22:08)
--- NOTE | 2020-06-19 16:40 | Vascular Lab Report ---
DUPLEX DOPPLER LOWER EXTREMITY VEINS, BILATERAL INDICATION / CLINICAL INFORMATION: swelling. TECHNIQUE: Duplex doppler imaging was performed through the veins of both lower extremities using venous joel liliana and other maneuvers. COMPARISON: None available. FINDINGS: RIGHT COMMON FEMORAL VEIN: Negative. RIGHT FEMORAL VEIN: Negative. RIGHT POPLITEAL VEIN: Negative. RIGHT CALF VEINS: Negative. LEFT COMMON FEMORAL VEIN: Negative. LEFT FEMORAL VEIN: Negative. LEFT POPLITEAL VEIN: Negative. LEFT CALF VEINS: Negative. ADDITIONAL FINDINGS: There is superficial thrombus in the left saphenous vein. IMPRESSION: 1. No sonographic evidence for DVT in either lower extremity. 2. Superficial thrombus in the left saphenous vein. Signer Name: Eduardo Rodrigues MD Signed: 06/19/2020 4:35 PM Workstation Name: [id number]
[2020-06-19] MEDS ORDERED: REMDESIVIR 200 MG in SODIUM CHLORIDE 0.9% 250ML 250 ML IV ONE (17:00)
[2020-06-19] MEDS ORDERED: REMDESIVIR 100 MG VIAL IV ONE (17:00)
[2020-06-19] MEDS ORDERED: METOPROLOL TARTRATE 25 MG TAB PO SCH ×2 (22:00)
[2020-06-19] MEDS: ENOXAPARIN 40 MG/0.4 ML INJ SUB-Q SCH (22:07)
[2020-06-19] MEDS: ZINC SULFATE 220 MG CAP PO SCH (22:08)
[2020-06-19] MEDS: ASCORBIC ACID 500 MG TAB PO SCH (22:08)
[2020-06-19] MEDS: FAMOTIDINE 20 MG TAB PO SCH (22:08)
[2020-06-19] MEDS: METOPROLOL TARTRATE 50 MG TAB PO SCH (22:12)
[2020-06-20] MEDS: methylPREDNISolone Sod Succinate 125 MG/2 ML INJ IV SCH ×2 (05:41→17:11)
[2020-06-20 07:13] LABS: Basophils % (Auto) 0.4 % (0.0-1.8); Hematocrit 42.2 % (35.5-45.6); Lymphocytes # (Auto) 0.6 K/mm3 (1.2-5.4); Lymphocytes % (Auto) 22.2 % (13.4-35.0); Mean Corpuscular HGB Conc 33 % (32-34); Mean Corpuscular Volume 88 fl (84-94); Monocytes # (Auto) 0.1 K/mm3 (0.0-0.8); Monocytes % (Auto) 4.9 % (0.0-7.3); Platelet Count 155 K/mm3 (140-440); Red Blood Count 4.77 M/mm3 (3.65-5.03); Red Cell Distribution Width 14.4 % (13.2-15.2)
[2020-06-20 07:25] LABS: BUN/Creatinine Ratio 19; Blood Urea Nitrogen 26 mg/dL (9-20); Calcium 8.8 mg/dL (8.4-10.2); Hemolysis Index 2
[2020-06-20] MEDS: INSULIN LISPRO 100 UNIT/ML SUB-Q SCH ×4 (08:53→22:39)
[2020-06-20] MEDS: INSULIN NPH/REGULAR 70/30 INJ SUB-Q SCH ×2 (08:55→17:55)
[2020-06-20] MEDS: cloNIDine 0.1 MG TAB PO SCH ×3 (08:59→20:43)
--- NOTE | 2020-06-20 11:05 | Progress Note ---
Assessment and Plan Assessment and plan: This is a 54-year-old -[place] male presents to the emergency department from home with complaint of a 3 to 4-day history of chills, generalized fatigue/weakness, a mixed dry and productive cough, nausea with vomiting, decreased appetite. The patient's , who works at [employer], says that she was recently sick with similar symptoms but she has improved while the patient has not. Eating food increases his nausea and makes him vomit. However he has been able to drink green tea and water to stay hydrated. No obvious fever but the patient has felt warm as if he has a fever. He has been using [employer] for his cough. No recent travel. He has a past medical history of hypertension, CVA with residual left-sided weakness, insulin-dependent diabetes, and coronary artery disease with cardiac stents. His primary care physician is Dr. Yee and his emt basic is Dr Farmer. He denies any tobacco or illicit drug use. Covid 19 induced pneumonia -Chest x-ray showed increased perihilar and lower lobe opacities -Patient placed on Covid protocol, continue to follow inflammatory markers -Follow calcitonin level, empiric antibiotics for now Acute hypoxic respiratory failure secondary to Covid pneumonia Severe sepsis secondary to Covid pneumonia Hypertension, resume home meds, monitor BP History of CVA, continue aspirin Plavix and statin COPD with mild exacerbation -Continue empiric steroid, empiric antibiotics and nebulizer breathing treatments GERD, continue home regimen of PPI Diabetes mellitus type 2 -Monitor blood glucose QA [facility] and start home insulin regimen with SSI Coronary artery disease -Continue routine home cardiac medications POOL, likely vasomotor nephropathy - monitor BMP, avoid nephrotoxins NSTEMI type II -Likely due to POOL, and underlying pneumonia -Follow with serial troponin, order 2D echocardiogram Morbid obesity, weight reduction diet and exercise counseling when clinically more stable as outpatient DVT prophylaxis, Lovenox Chest x-ray: IMPRESSION: 1. Increased bilateral perihilar lower lobe opacities. Doppler bilateral lower extremity:IMPRESSION: 1. No sonographic evidence for DVT in either lower extremity. 2. Superficial thrombus in the left saphenous vein. 06/20: In addition to adjustments made above with diagnosis will continue management per infectious disease recommendation and pulmonary recommendation. Incentive spirometer added in addition to vitamins. Recommended to the patient for need to prone if able to. He verbalized understanding. Wean oxygen as tolerated patient currently on 55% high flow. Continue remdesivir monitor renal function closely. We will hold off on diuresis at this time due to POOL. With diagnosis also advised patient on need for family members to get tested. The high probability of a clinically significant, sudden or life threatening deterioration of the [pulmonary, renal, cardiac] system(s) required my full and direct attention, intervention and personal management. The aggregate critical care time was [35] minutes. This time is in addition to time spent performing reported procedures but includes the following: [x] Data Review and interpretation [x] Patient assessment and monitoring of vital signs [x] Documentation [x] Medication orders and management History Interval history: Patient seen and clinically stable no new complaints. Still with shortness of breath. Unable to lay prone due to body habitus according to the patient. He wanted me to update his home medications with carvedilol 25 mg p.o. twice daily and pantoprazole 40 mg daily. Hospitalist Physical - Physical exam Narrative exam: VITAL SIGNS: Reviewed. GENERAL: The patient appears normally developed, obese vital signs as documented. HEAD: No signs of head trauma. EYES: Pupils are equal. Extraocular motions intact. EARS: Hearing grossly intact. MOUTH: Oropharynx is normal. NECK: No adenopathy, no JVD. CHEST: Chest with diminished breath sounds bilaterally. No wheezes, rales, or rhonchi. CARDIAC: Regular rate and rhythm. S1 and S2, without murmurs, gallops, or rubs. VASCULAR: No Edema. Peripheral pulses normal and equal in all extremities. ABDOMEN: Soft, non tender and non distended. No rebound or guarding, and no masses palpated. Bowel Sounds normal. MUSCULOSKELETAL: Good range of motion of all major joints. Extremities without clubbing, cyanosis or edema. NEUROLOGIC EXAM: Alert and oriented x 3 No focal sensory or strength deficits. Speech normal. Follows commands. PSYCHIATRIC: Mood normal. SKIN: detail exam as documented in skin assessment - Constitutional Vitals: Temp Pulse Resp BP Pulse Ox 98.1 F 86 22 147/78 91 06/20/20 04:59 06/20/20 08:59 06/20/20 04:59 06/20/20 08:59 06/20/20 04:59 HEART Score - HEART Score Troponin: Troponin T 0.019 ng/mL (0.00-0.029) 06/20/20 06:47 Results - Labs CBC & Chem 7: 06/20/20 06:47 06/20/20 06:47 Labs: Laboratory Last Values WBC 2.8 K/mm3 (4.5-11.0) L 06/20/20 06:47 RBC 4.77 M/mm3 (3.65-5.03) 06/20/20 06:47 Hgb 14.0 gm/dl (11.8-15.2) 06/20/20 06:47 Hct 42.2 % (35.5-45.6) 06/20/20 06:47 MCV 88 fl (84-94) 06/20/20 06:47 MCH 29 pg (28-32) 06/20/20 06:47 MCHC 33 % (32-34) 06/20/20 06:47 RDW 14.4 % (13.2-15.2) 06/20/20 06:47 Plt Count 155 K/mm3 (140-440) 06/20/20 06:47 Lymph % (Auto) 22.2 % (13.4-35.0) 06/20/20 06:47 [place] % (Auto) 4.9 % (0.0-7.3) 06/20/20 06:47 Eos % (Auto) 0.0 % (0.0-4.3) 06/20/20 06:47 Baso % (Auto) 0.4 % (0.0-1.8) 06/20/20 06:47 Lymph # (Auto) 0.6 K/mm3 (1.2-5.4) L 06/20/20 06:47 [place] # (Auto) 0.1 K/mm3 (0.0-0.8) 06/20/20 06:47 Eos # (Auto) 0.0 K/mm3 (0.0-0.4) 06/20/20 06:47 Baso # (Auto) 0.0 K/mm3 (0.0-0.1) 06/20/20 06:47 Seg Neutrophils % 72.5 % (40.0-70.0) H 06/20/20 06:47 Seg Neutrophils # 2.0 K/mm3 (1.8-7.7) 06/20/20 06:47 D-Dimer 368.8 ng/mlDDU (0-234) H 06/18/20 10:37 Sodium 134 mmol/L (137-145) L 06/20/20 06:47 Potassium 4.6 mmol/L (3.6-5.0) 06/20/20 06:47 Chloride 99.3 mmol/L (98-107) 06/20/20 06:47 Carbon Dioxide 22 mmol/L (22-30) 06/20/20 06:47 Anion Gap 17 mmol/L 06/20/20 06:47 BUN 26 mg/dL (9-20) H 06/20/20 06:47 Creatinine 1.4 mg/dL (0.8-1.3) H 06/20/20 06:47 Estimated GFR > 60 ml/min 06/20/20 06:47 BUN/Creatinine Ratio 19 % 06/20/20 06:47 Glucose 347 mg/dL (75-100) H 06/20/20 06:47 POC Glucose 304 mg/dL (70-105) H 06/20/20 07:55 Calcium 8.8 mg/dL (8.4-10.2) 06/20/20 06:47 Ferritin 324.3 ng/mL (30.0-300.0) H 06/18/20 10:37 Total Bilirubin 0.90 mg/dL (0.1-1.2) 06/18/20 09:03 AST 33 units/L (5-40) 06/18/20 09:03 ALT 23 units/L (7-56) 06/18/20 09:03 Alkaline Phosphatase 99 units/L (35-129) 06/18/20 09:03 Lactate Dehydrogenase 348 units/L (91-180) H 06/18/20 10:37 Troponin T 0.019 ng/mL (0.00-0.029) 06/20/20 06:47 C-Reactive Protein 6.10 mg/dL (0.00-1.30) H 06/18/20 10:37 Total Protein 7.0 g/dL (6.3-8.2) 06/18/20 09:03 Albumin 3.3 g/dL (3.9-5) L 06/18/20 09:03 Albumin/Globulin Ratio 0.9 % 06/18/20 09:03 Triglycerides 123 mg/dL (2-149) 06/18/20 09:03 Cholesterol 122 mg/dL (50-199) 06/18/20 09:03 LDL Cholesterol Direct 77 mg/dL (50-130) 06/18/20 09:03 HDL Cholesterol 26 mg/dL (40-59) L 06/18/20 09:03 Cholesterol/HDL Ratio 4.69 % 06/18/20 09:03 Lipase 17 units/L (13-60) 06/18/20 09:03 Procalcitonin 0.30 ng/mL (<0.15) 06/18/20 10:37 TSH 0.260 mlU/mL (0.270-4.200) L 06/18/20 09:03 Free T4 1.11 ng/dL (0.76-1.46) 06/18/20 15:42 Coronavirus (PCR) Positive (Negative) A 06/19/20 Unknown Microbiology: Microbiology 06/18/20 10:37 Peripheral/Venous Blood Culture - Preliminary NO GROWTH AFTER 24 HOURS 06/18/20 10:37 Peripheral/Venous Blood Culture - Preliminary NO GROWTH AFTER 24 HOURS Hernandez/IV: Voiding Method Urinal Active Medications - Current Medications Current Medications: Generic Name Dose Route Start Last Admin Trade Name Freq PRN Reason Stop Dose Admin Acetaminophen 650 mg 06/19/20 10:26 06/19/20 11:08 Acetaminophen 325 Mg Tab PO 650 mg Q4H PRN Administration Pain MILD(1-3)/Fever >100.5/VACA Albuterol 2 puff 06/18/20 21:48 06/19/20 09:33 Albuterol 8.5 Gm Mdi Inhalation IH 2 spray Q6HRT PRN Administration Shortness Of Breath Amlodipine Besylate 10 mg 06/19/20 10:00 06/19/20 10:16 Amlodipine 10 Mg Tab PO 10 mg QDAY SAUL Administration Ascorbic Acid 1,000 mg 06/19/20 22:00 06/19/20 22:08 Ascorbic Acid 500 Mg Tab PO 1,000 mg BID SAUL Administration Aspirin 325 mg 06/19/20 10:00 06/19/20 10:16 Aspirin 325 Mg Tab PO 325 mg QDAY SAUL Administration Cholecalciferol 5,000 unit 06/20/20 10:00 Cholecalciferol (Vit D3) 5,000 Unit Tab PO DAILY [facility] Clonidine HCl 0.1 mg 06/19/20 14:00 06/20/20 08:59 Clonidine 0.1 Mg Tab PO 0.1 mg TID SAUL Administration Clopidogrel Bisulfate 75 mg 06/19/20 10:00 06/19/20 10:16 Clopidogrel 75 Mg Tab PO 75 mg QDAY SAUL Administration Enoxaparin Sodium 40 mg 06/19/20 22:00 06/19/20 22:07 Enoxaparin 40 Mg/0.4 Ml Inj SUB-Q 40 mg BID [facility] Administration Protocol Famotidine 20 mg 06/19/20 22:00 06/19/20 22:08 Famotidine 20 Mg Tab PO 20 mg BID SAUL Administration Guaifenesin 200 mg 06/18/20 21:59 06/19/20 05:13 Guaifenesin 100 Mg/5 Ml Oral Liqd PO 200 mg Q4H PRN Administration Cough REMDESIVIR 100 mg/ Sodium 250 mls @ 500 mls/hr 06/20/20 21:00 Chloride IV 06/23/20 21:29 Q24HR@2100 [facility] Insulin Human Lispro 0 unit 06/18/20 22:00 06/20/20 08:53 Insulin Lispro 100 Unit/Ml SUB-Q 6 unit ACHS [facility] Administration Protocol Isosorbide Dinitrate/Hydralazine 1 each 06/19/20 10:45 06/19/20 22:05 Isosorb Dinit/Hydralazine 20-37.5mg Tab PO 1 each BID [facility] Administration Methylprednisolone Sodium Succinate 60 mg 06/19/20 14:00 06/20/20 05:41 Methylprednisolone Sod Succinate 125 Mg/2 Ml Inj IV 60 mg Q8HR [facility] Administration Metoprolol Tartrate 50 mg 06/19/20 22:00 06/19/20 22:12 Metoprolol Tartrate 50 Mg Tab PO 50 mg BID [facility] Administration Sodium Chloride 50 ml 06/19/20 17:00 06/19/20 22:08 Sodium Chloride 0.9% 50 Ml Ivpb IV 06/22/20 21:01 Not Given Q24HR@2100 [facility] Zinc Sulfate 220 mg 06/19/20 22:00 06/19/20 22:08 Zinc Sulfate 220 Mg Cap PO 220 mg BID SAUL Administration Nutrition/Malnutrition Assess - Dietary Evaluation Nutrition/Malnutrition Findings: Nutrition Notes Start: 06/19/20 12:05 Freq: Status: Active Protocol: Document 06/19/20 12:05 AL (Rec: 06/19/20 12:26 AL [id number]) Co-Sign 06/19/20 12:05 LP Nutrition Notes 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 Pt Andreas score is 16. Pt states appetite comes and goes. Pt. ate 50% of breakfast this morning and is tolerating hospitlal meals at 75% Pt has diabetic foot ulcer . Percent of energy/protein needs met: 72%/ 57% Burn Absent Trauma Absent GI Symptoms Nausea,Vomiting Current % PO Fair (50-74%) Minimum of two criteria No #1 Nutrition Diagnosis Increased nutrient needs ( specify in comment below) Comments: Protein Etiology nee for wound healing As Evidenced by Signs and Symptoms Diabetic foot ulcer Is patient on ventilator? No Is Patient Ambulatory and/or Out of Bed Yes REE-([place]-St. Jeor-ambulatory/OOB) [ 2893.319 NUTR.MSJOOB] Kcal/Kg value to use for calculation 18 Approximate Energy Requirements Using 2322 kcal/Kg Calculation Used for Recommendations Kcal/kg Additional Notes Protein: 111-133 g (1.25-1.5 g /kg IBW 89 kg) Fluid: 1 ml/kcal Nutrition Intervention Change Diet Order: Change to Cardiac/ Consistent CHO Add Supplement/Snack (indicate name/kcal Ensure HP Chocolate /protein ) Provides kCal: 360 Provides Protein (gm) 32 Teaching Recipient Patient Learning Readiness Good Teaching Methods Discussion,Handout Response to Teaching Verbalize understanding Education Handouts Provided Nausea and Vomiting Nutrition Therapy Barriers to Learning No Barriers RD phone number provided Yes Patient aware of follow up options Yes Goal #1 Change diet order Goal #2 Meet 75% of total energy and protein needs po Goal #3 ONS tolerance. Goal #4 Wound healing Anticipated Discharge Needs: Cardiac/Consitent CHO diet Follow-Up By: 06/24/20 Additional Comments F/U for diet change, intakes, N/V, and ONS tolerance
--- NOTE | 2020-06-20 13:04 | Progress Note ---
Assessment and Plan Cultures: Blood culture no growth so far A/P: 54-year-old man past medical history hypertension, [place], diabetes, CVA admitted with COVID-19 #Severe COVID-19 pneumonia: Patient presented with a week of symptoms, chest x- ray with diffuse bilateral infiltrates. Inflammatory markers elevated. No evidence of DVT #Acute hypoxemic respiratory failure: Likely secondary to COVID-19 infection. Currently on high flow nasal cannula #Diabetes: tight glycemic control for best outcomes. #Leukopenia: Likely secondary to COVID-19. Recs: -Steroids per pulmonary for 10 days -Remdesivir 200 mg IV q day x 1 followed by 100 mg IV q day x 4 days. Monitor hepatic and renal function. Day 2 of 5. -Obtain q48-72h inflammatory markers - ferritin, Ddimer, CRP, LDH -Anticoagulation per hospital protocol -Proning as able Thank you for the consult, we will continue to follow. Dr. Frias covering this weekend, Dr. Santa taking over Tuesday Kaya Garcia MD [facility] O: [phone] F: [phone] Subjective Date of service: 06/20/20 Interval history: Afebrile over last 24 hours, white count low at 2.8. Covid positive. Cultures remain negative. Objective - Exam Narrative Exam: Physical exam deferred due to PPE conservation strategy. Please refer to primary team's note. - Constitutional Vitals: Vital Signs Temp Pulse Resp BP Pulse Ox 98.7 F 93 H 24 161/95 94 06/20/20 12:36 06/20/20 12:36 06/20/20 12:36 06/20/20 12:36 06/20/20 12:36 Temperature -Last 24 Hours Temperature 98.7 F Temperature 98.1 F Temperature 99.1 F Temperature 99.0 F Temperature 98.4 F - Labs CBC & Chem 7: 06/20/20 06:47 06/20/20 06:47 Labs: Abnormal lab results 06/19/20 06/19/20 06/19/20 Range/Units 11:42 13:54 16:55 WBC (4.5-11.0) K/mm3 Lymph # (Auto) (1.2-5.4) K/mm3 Seg Neutrophils % (40.0-70.0) % Sodium (137-145) mmol/L BUN (9-20) mg/dL Creatinine (0.8-1.3) mg/dL Glucose (75-100) mg/dL POC Glucose 125 H 164 H 187 H (70-105) mg/dL Troponin T (0.00-0.029) ng/mL Coronavirus (PCR) (Negative) 06/19/20 06/19/20 06/19/20 Range/Units 17:36 22:31 Unknown WBC (4.5-11.0) K/mm3 Lymph # (Auto) (1.2-5.4) K/mm3 Seg Neutrophils % (40.0-70.0) % Sodium (137-145) mmol/L BUN (9-20) mg/dL Creatinine (0.8-1.3) mg/dL Glucose (75-100) mg/dL POC Glucose 344 H (70-105) mg/dL Troponin T 0.031 H D (0.00-0.029) ng/mL Coronavirus (PCR) Positive A (Negative) 06/20/20 06/20/20 06/20/20 Range/Units 06:47 06:47 07:55 WBC 2.8 L (4.5-11.0) K/mm3 Lymph # (Auto) 0.6 L (1.2-5.4) K/mm3 Seg Neutrophils % 72.5 H (40.0-70.0) % Sodium 134 L (137-145) mmol/L BUN 26 H (9-20) mg/dL Creatinine 1.4 H (0.8-1.3) mg/dL Glucose 347 H (75-100) mg/dL POC Glucose 304 H (70-105) mg/dL Troponin T (0.00-0.029) ng/mL Coronavirus (PCR) (Negative)
[2020-06-20] MEDS: ENOXAPARIN 40 MG/0.4 ML INJ SUB-Q SCH ×2 (13:06→21:18)
[2020-06-20] MEDS: CLOPIDOGREL 75 MG TAB PO SCH (13:07)
[2020-06-20] MEDS: CHOLECALCIFEROL (VIT D3) 5,000 UNIT TAB PO SCH (13:07)
[2020-06-20] MEDS: ZINC SULFATE 220 MG CAP PO SCH ×2 (13:07→21:19)
[2020-06-20] MEDS: ASPIRIN 325 MG TAB PO SCH (13:07)
[2020-06-20] MEDS: ASCORBIC ACID 500 MG TAB PO SCH ×2 (13:07→21:19)
--- NOTE | 2020-06-20 13:08 | Progress Note ---
Assessment and Plan Acute hypoxemic respiratory failure. PUI COVID-19 infection. Bilateral pneumonia. Morbid obesity. History of cerebrovascular accident. History of diabetes. Gastroesophageal reflux disease. Hypertension. History of coronary artery disease. Acute kidney injury. Mild hyponatremia. Elevated serum inflammatory markers to include D-dimers and ferritin levels - continue supplemental oxygen as needed to keep O2 sat's > 92% - continue bronchodilators with pulmonary hygiene per RT - continue systemic steroids (will change to dexamethasone and complete 10 day protocol) - complete empiric CAP AB's therapy with Rocephin and zithromax - PT/OT as tolerated - mobility protocols for pressure ulcer prophylaxis - continue accuchecks with glycemic control per SSI for target BG < 180 mg/dl - GI & VTE prophylaxis - Flu & pneumovax addressed per protocol - continue other care per attending / other consultants COVID SPECIFIC INTERVENTIONS - continue Dexamethasone protocol - continue Remdesivir protocol - monitor inflammatory markers - ferritin, D-dimer, CRP, LDH per facility protocol - continue anticoagulation per System Protocol based on d-dimer - continue contact and airborne isolation ... re-evaluate in am & prn Subjective Date of service: 06/20/20 Principal diagnosis: Ac hypoxemic resp failure; PUI COVID-19; PNA; Morbid obesity; H/O CVA; DMII Interval history: Patient is seen today for: Acute hypoxemic respiratory failure; PUI COVID-19 infection; Bilateral pneumonia; Morbid obesity; H/O CVA; DM II; POOL; Elevated serum inflammatory markers to include D-dimers and ferritin levels. Seen and examined at bedside; 24hour events reviewed; nursing and respiratory care staff consulted; no adverse overnight events reported to me; resting in bed; COVID-19 PCR test is positive; sitting on side of bed; no N/V/F/C Objective Vital Signs - 12hr 06/20/20 06/20/20 06/20/20 04:59 08:00 08:59 Temperature 98.1 F Pulse Rate 86 86 Respiratory 22 Rate Blood Pressure 147/78 147/78 O2 Sat by Pulse 91 98 Oximetry 06/20/20 12:16 Temperature Pulse Rate Respiratory Rate Blood Pressure O2 Sat by Pulse 96 Oximetry Constitutional: appears uncomfortable, other (middle aged obese male with milldy increased respiratory effort at rest) Eyes: non-icteric ENT: oropharynx moist, other (large neck circumference) Neck: supple, no lymphadenopathy, no JVD Effort: mildly labored Ascultation: Bilateral: diminished breath sounds, rhonchi Percussion: Bilateral: not dull Cardiovascular: regular rate and rhythm Gastrointestinal: normoactive bowel sounds, soft, non-tender, non-distended Extremities: no cyanosis, pulses normal, no ischemia or petechiae, other (Lefft sided lymphedema) Neurologic: pupils equal and round, other (left hemiparesis) Psychiatric: mood appropriate, affect normal CBC and BMP: 06/20/20 06:47 06/21/20 04:41 ABG, PT/INR, D-dimer: PT/INR, D-dimer D-Dimer 368.8 ng/mlDDU (0-234) H 06/18/20 10:37 Abnormal lab findings: Abnormal Labs 06/18/20 06/18/20 06/18/20 09:03 09:03 09:03 WBC Plt Count 130 L Lymph % (Auto) 10.4 L [place] % (Auto) 9.7 H Baso % (Auto) 2.2 H Lymph # (Auto) 0.5 L Seg Neutrophils % 77.7 H D-Dimer Sodium 132 L Carbon Dioxide 21 L BUN 27 H Creatinine 1.7 H Glucose 300 H POC Glucose Calcium 8.3 L Ferritin Lactate Dehydrogenase Troponin T 0.052 H C-Reactive Protein Albumin 3.3 L HDL Cholesterol 26 L TSH 0.260 L Coronavirus (PCR) 06/18/20 06/18/20 06/18/20 10:37 10:37 10:37 WBC Plt Count Lymph % (Auto) [place] % (Auto) Baso % (Auto) Lymph # (Auto) Seg Neutrophils % D-Dimer 368.8 H Sodium Carbon Dioxide BUN Creatinine Glucose 297 H POC Glucose Calcium Ferritin 324.3 H Lactate Dehydrogenase 348 H Troponin T C-Reactive Protein 6.10 H Albumin HDL Cholesterol TSH Coronavirus (PCR) 06/18/20 06/19/20 06/19/20 16:53 09:56 11:42 WBC Plt Count Lymph % (Auto) [place] % (Auto) Baso % (Auto) Lymph # (Auto) Seg Neutrophils % D-Dimer Sodium 135 L Carbon Dioxide 21 L BUN Creatinine Glucose 125 H POC Glucose 236 H 125 H Calcium 8.2 L Ferritin Lactate Dehydrogenase Troponin T C-Reactive Protein Albumin HDL Cholesterol TSH Coronavirus (PCR) 06/19/20 06/19/20 06/19/20 13:54 16:55 17:36 WBC Plt Count Lymph % (Auto) [place] % (Auto) Baso % (Auto) Lymph # (Auto) Seg Neutrophils % D-Dimer Sodium Carbon Dioxide BUN Creatinine Glucose POC Glucose 164 H 187 H Calcium Ferritin Lactate Dehydrogenase Troponin T 0.031 H D C-Reactive Protein Albumin HDL Cholesterol TSH Coronavirus (PCR) 06/19/20 06/19/20 06/20/20 22:31 Unknown 06:47 WBC 2.8 L Plt Count Lymph % (Auto) [place] % (Auto) Baso % (Auto) Lymph # (Auto) 0.6 L Seg Neutrophils % 72.5 H D-Dimer Sodium Carbon Dioxide BUN Creatinine Glucose POC Glucose 344 H Calcium Ferritin Lactate Dehydrogenase Troponin T C-Reactive Protein Albumin HDL Cholesterol TSH Coronavirus (PCR) Positive A 06/20/20 06/20/20 06:47 07:55 WBC Plt Count Lymph % (Auto) [place] % (Auto) Baso % (Auto) Lymph # (Auto) Seg Neutrophils % D-Dimer Sodium 134 L Carbon Dioxide BUN 26 H Creatinine 1.4 H Glucose 347 H POC Glucose 304 H Calcium Ferritin Lactate Dehydrogenase Troponin T C-Reactive Protein Albumin HDL Cholesterol TSH Coronavirus (PCR) Chest x-ray: pending Allied health notes reviewed: nursing
[2020-06-20] MEDS: amLODIPine 10 MG TAB PO SCH (13:09)
[2020-06-20] MEDS: ISOSORB DINIT/HYDRALAZINE 20-37.5MG TAB PO SCH ×2 (13:10→21:18)
[2020-06-20] MEDS: METOPROLOL TARTRATE 50 MG TAB PO SCH (17:10)
[2020-06-20] MEDS: FAMOTIDINE 20 MG TAB PO SCH (17:11)
[2020-06-20] MEDS: SODIUM CHLORIDE 0.9% 50 ML IVPB IV SCH (21:06)
[2020-06-20] MEDS: REMDESIVIR 100 MG in SODIUM CHLORIDE 0.9% 250ML 250 ML IV SCH (21:06)
[2020-06-20] MEDS: carvediloL 25 MG TAB PO SCH (21:19)
[2020-06-21 06:35] LABS: Albumin 3.4 g/dL (3.9-5); Calcium 8.5 mg/dL (8.4-10.2)
[2020-06-21] MEDS: INSULIN NPH/REGULAR 70/30 INJ SUB-Q SCH ×2 (09:52→17:01)
[2020-06-21] MEDS: INSULIN LISPRO 100 UNIT/ML SUB-Q SCH ×4 (09:53→22:40)
[2020-06-21] MEDS: CLOPIDOGREL 75 MG TAB PO SCH (09:54)
[2020-06-21] MEDS: ZINC SULFATE 220 MG CAP PO SCH ×2 (09:54→22:04)
[2020-06-21] MEDS: cloNIDine 0.1 MG TAB PO SCH ×3 (09:54→20:37)
[2020-06-21] MEDS: ASCORBIC ACID 500 MG TAB PO SCH ×2 (09:54→22:05)
[2020-06-21] MEDS: CHOLECALCIFEROL (VIT D3) 5,000 UNIT TAB PO SCH (09:54)
[2020-06-21] MEDS: PANTOPRAZOLE 40 MG TAB PO SCH (09:55)
[2020-06-21] MEDS: carvediloL 25 MG TAB PO SCH ×2 (09:55→22:03)
[2020-06-21] MEDS: amLODIPine 10 MG TAB PO SCH (09:55)
[2020-06-21] MEDS: dexAMETHasone 4 MG/ML VIAL IV SCH (09:56)
[2020-06-21] MEDS: ASPIRIN 325 MG TAB PO SCH (09:56)
[2020-06-21] MEDS: ISOSORB DINIT/HYDRALAZINE 20-37.5MG TAB PO SCH ×2 (09:56→22:02)
[2020-06-21] MEDS: ENOXAPARIN 40 MG/0.4 ML INJ SUB-Q SCH ×2 (09:56→22:04)
--- NOTE | 2020-06-21 11:05 | Progress Note ---
Assessment and Plan Assessment and plan: This is a 54-year-old -[place] male presents to the emergency department from home with complaint of a 3 to 4-day history of chills, generalized fatigue/weakness, a mixed dry and productive cough, nausea with vomiting, decreased appetite. The patient's , who works at [employer], says that she was recently sick with similar symptoms but she has improved while the patient has not. Eating food increases his nausea and makes him vomit. However he has been able to drink green tea and water to stay hydrated. No obvious fever but the patient has felt warm as if he has a fever. He has been using [employer] for his cough. No recent travel. He has a past medical history of hypertension, CVA wi th residual left-sided weakness, insulin-dependent diabetes, and coronary artery disease with cardiac stents. His primary care physician is Dr. Yee and his internet marketing intern is Dr Farmer. He denies any tobacco or illicit drug use. Covid 19 induced pneumonia -Chest x-ray showed increased perihilar and lower lobe opacities -Patient placed on Covid protocol, continue to follow inflammatory markers -Follow calcitonin level, empiric antibiotics for now Acute hypoxic respiratory failure secondary to Covid pneumonia Severe sepsis secondary to Covid pneumonia Hypertension, resume home meds, monitor BP History of CVA, continue aspirin Plavix and statin COPD with mild exacerbation -Continue empiric steroid, empiric antibiotics and nebulizer breathing treatments GERD, continue home regimen of PPI Diabetes mellitus type 2 -Monitor blood glucose QA [facility] and start home insulin regimen with SSI Coronary artery disease -Continue routine home cardiac medications POOL, likely vasomotor nephropathy - monitor BMP, avoid nephrotoxins NSTEMI type II -Likely due to POOL, and underlying pneumonia -Follow with serial troponin, order 2D echocardiogram Morbid obesity, weight reduction diet and exercise counseling when clinically more stable as outpatient DVT prophylaxis, Lovenox Chest x-ray: IMPRESSION: 1. Increased bilateral perihilar lower lobe opacities. Doppler bilateral lower extremity:IMPRESSION: 1. No sonographic evidence for DVT in either lower extremity. 2. Superficial thrombus in the left saphenous vein. 06/20: In addition to adjustments made above with diagnosis will continue management per infectious disease recommendation and pulmonary recommendation. Incentive spirometer added in addition to vitamins. Recommended to the patient for need to prone if able to. He verbalized understanding. Wean oxygen as tolerated patient currently on 55% high flow. Continue remdesivir monitor renal function closely. We will hold off on diuresis at this time due to POOL. With diagnosis also advised patient on need for family members to get tested. The high probability of a clinically significant, sudden or life threatening deterioration of the [pulmonary, renal, cardiac] system(s) required my full and direct attention, intervention and personal management. The aggregate critical care time was [35] minutes. This time is in addition to time spent performing reported procedures but includes the following: [x] Data Review and interpretation [x] Patient assessment and monitoring of vital signs [x] Documentation [x] Medication orders and management Daily course 06/21/20 Patient is seen and examined. Patient denied any shortness of breath, no chest pain. Complained of leg edema. No other complaint. Patient is getting Decadron 6 mg IV daily and remdesivir 100 mg IV daily for Covid. Day 3 of 5. Continue current management. ID and pulmonary follow-up. Out of bed to chair. History Interval history: Patient is seen and examined. Patient denied any shortness of breath, no chest pain. Complained of leg edema. No other complaint. Patient is getting Decadron 6 mg IV daily and remdesivir 100 mg IV daily for Covid. Day 3 of 5. Continue current management. ID and pulmonary follow-up. Out of bed to chair. Hospitalist Physical - Constitutional Vitals: Temp Pulse Resp BP Pulse Ox 99.0 F 84 18 155/90 98 06/21/20 06:35 06/21/20 09:54 06/21/20 06:35 06/21/20 09:54 06/21/20 08:46 General appearance: Present: no acute distress - EENT Eyes: Present: PERRL ENT: hearing intact - Neck Neck: Present: supple - Respiratory Respiratory effort: normal Respiratory: bilateral: diminished - Cardiovascular Rhythm: regular Heart Sounds: Present: S1 & S2 - Extremities Extremities: no ischemia Extremity abnormal: edema Peripheral Pulses: within normal limits - Abdominal General gastrointestinal: deferred - Integumentary Integumentary: Present: clear, warm, dry - Psychiatric Psychiatric: appropriate mood/affect, intact judgment & insight HEART Score - HEART Score Troponin: Troponin T 0.014 ng/mL (0.00-0.029) 06/20/20 14:12 Results - Labs CBC & Chem 7: 06/20/20 06:47 06/21/20 04:41 Labs: Laboratory Last Values WBC 2.8 K/mm3 (4.5-11.0) L 06/20/20 06:47 RBC 4.77 M/mm3 (3.65-5.03) 06/20/20 06:47 Hgb 14.0 gm/dl (11.8-15.2) 06/20/20 06:47 Hct 42.2 % (35.5-45.6) 06/20/20 06:47 MCV 88 fl (84-94) 06/20/20 06:47 MCH 29 pg (28-32) 06/20/20 06:47 MCHC 33 % (32-34) 06/20/20 06:47 RDW 14.4 % (13.2-15.2) 06/20/20 06:47 Plt Count 155 K/mm3 (140-440) 06/20/20 06:47 Lymph % (Auto) 22.2 % (13.4-35.0) 06/20/20 06:47 [place] % (Auto) 4.9 % (0.0-7.3) 06/20/20 06:47 Eos % (Auto) 0.0 % (0.0-4.3) 06/20/20 06:47 Baso % (Auto) 0.4 % (0.0-1.8) 06/20/20 06:47 Lymph # (Auto) 0.6 K/mm3 (1.2-5.4) L 06/20/20 06:47 [place] # (Auto) 0.1 K/mm3 (0.0-0.8) 06/20/20 06:47 Eos # (Auto) 0.0 K/mm3 (0.0-0.4) 06/20/20 06:47 Baso # (Auto) 0.0 K/mm3 (0.0-0.1) 06/20/20 06:47 Seg Neutrophils % 72.5 % (40.0-70.0) H 06/20/20 06:47 Seg Neutrophils # 2.0 K/mm3 (1.8-7.7) 06/20/20 06:47 D-Dimer 368.8 ng/mlDDU (0-234) H 06/18/20 10:37 Sodium 138 mmol/L (137-145) 06/21/20 04:41 Potassium 4.2 mmol/L (3.6-5.0) 06/21/20 04:41 Chloride 101.9 mmol/L (98-107) 06/21/20 04:41 Carbon Dioxide 25 mmol/L (22-30) 06/21/20 04:41 Anion Gap 15 mmol/L 06/21/20 04:41 BUN 44 mg/dL (9-20) H 06/21/20 04:41 Creatinine 1.7 mg/dL (0.8-1.3) H 06/21/20 04:41 Estimated GFR 51 ml/min 06/21/20 04:41 BUN/Creatinine Ratio 26 % 06/21/20 04:41 Glucose 251 mg/dL (75-100) H 06/21/20 04:41 POC Glucose 265 mg/dL (70-105) H 06/21/20 07:35 Calcium 8.5 mg/dL (8.4-10.2) 06/21/20 04:41 Ferritin 324.3 ng/mL (30.0-300.0) H 06/18/20 10:37 Total Bilirubin 0.40 mg/dL (0.1-1.2) 06/21/20 04:41 AST 30 units/L (5-40) 06/21/20 04:41 ALT 26 units/L (7-56) 06/21/20 04:41 Alkaline Phosphatase 85 units/L (35-129) 06/21/20 04:41 Lactate Dehydrogenase 348 units/L (91-180) H 06/18/20 10:37 Troponin T 0.014 ng/mL (0.00-0.029) 06/20/20 14:12 C-Reactive Protein 6.10 mg/dL (0.00-1.30) H 06/18/20 10:37 Total Protein 6.4 g/dL (6.3-8.2) 06/21/20 04:41 Albumin 3.4 g/dL (3.9-5) L 06/21/20 04:41 Albumin/Globulin Ratio 1.1 % 06/21/20 04:41 Triglycerides 123 mg/dL (2-149) 06/18/20 09:03 Cholesterol 122 mg/dL (50-199) 06/18/20 09:03 LDL Cholesterol Direct 77 mg/dL (50-130) 06/18/20 09:03 HDL Cholesterol 26 mg/dL (40-59) L 06/18/20 09:03 Cholesterol/HDL Ratio 4.69 % 06/18/20 09:03 Lipase 17 units/L (13-60) 06/18/20 09:03 Procalcitonin 0.30 ng/mL (<0.15) 06/18/20 10:37 TSH 0.260 mlU/mL (0.270-4.200) L 06/18/20 09:03 Free T4 1.11 ng/dL (0.76-1.46) 06/18/20 15:42 Coronavirus (PCR) Positive (Negative) A 06/19/20 Unknown Microbiology: Microbiology 06/18/20 10:37 Peripheral/Venous Blood Culture - Preliminary NO GROWTH AFTER 48 HOURS 06/18/20 10:37 Peripheral/Venous Blood Culture - Preliminary NO GROWTH AFTER 48 HOURS Hernandez/IV: Voiding Method Urinal Active Medications - Current Medications Current Medications: Generic Name Dose Route Start Last Admin Trade Name Freq PRN Reason Stop Dose Admin Acetaminophen 650 mg 06/19/20 10:26 06/19/20 11:08 Acetaminophen 325 Mg Tab PO 650 mg Q4H PRN Administration Pain MILD(1-3)/Fever >100.5/VACA Albuterol 2 puff 06/18/20 21:48 06/19/20 09:33 Albuterol 8.5 Gm Mdi Inhalation IH 2 spray Q6HRT PRN Administration Shortness Of Breath Amlodipine Besylate 10 mg 06/19/20 10:00 06/21/20 09:55 Amlodipine 10 Mg Tab PO 10 mg QDAY SAUL Administration Ascorbic Acid 1,000 mg 06/19/20 22:00 06/21/20 09:54 Ascorbic Acid 500 Mg Tab PO 1,000 mg BID SAUL Administration Aspirin 325 mg 06/19/20 10:00 06/21/20 09:56 Aspirin 325 Mg Tab PO 325 mg QDAY SAUL Administration Carvedilol 25 mg 06/20/20 22:00 06/21/20 09:55 Carvedilol 25 Mg Tab PO 25 mg BID SAUL Administration Cholecalciferol 5,000 unit 06/20/20 10:00 06/21/20 09:54 Cholecalciferol (Vit D3) 5,000 Unit Tab PO 5,000 unit DAILY SAUL Administration Clonidine HCl 0.1 mg 06/19/20 14:00 06/21/20 09:54 Clonidine 0.1 Mg Tab PO 0.1 mg TID SAUL Administration Clopidogrel Bisulfate 75 mg 06/19/20 10:00 06/21/20 09:54 Clopidogrel 75 Mg Tab PO 75 mg QDAY SAUL Administration Dexamethasone 6 mg 06/21/20 10:00 06/21/20 09:56 Dexamethasone 4 Mg/Ml Vial IV 06/29/20 09:59 6 mg DAILY SAUL Administration Enoxaparin Sodium 40 mg 06/19/20 22:00 06/21/20 09:56 Enoxaparin 40 Mg/0.4 Ml Inj SUB-Q 40 mg BID SAUL Administration Protocol Guaifenesin 200 mg 06/18/20 21:59 06/19/20 05:13 Guaifenesin 100 Mg/5 Ml Oral Liqd PO 200 mg Q4H PRN Administration Cough REMDESIVIR 100 mg/ Sodium 250 mls @ 500 mls/hr 06/20/20 21:00 06/20/20 21:06 Chloride IV 06/23/20 21:29 500 mls/hr Q24HR@2100 SAUL Administration Insulin Human Isoph/Insulin Regular 30 unit 06/20/20 17:00 06/21/20 09:52 Insulin Nph/Regular 70/30 Inj SUB-Q 30 unit BIDDIAB SAUL Administration Insulin Human Lispro 0 unit 06/18/20 22:00 06/21/20 09:53 Insulin Lispro 100 Unit/Ml SUB-Q 6 unit ACHS SAUL Administration Protocol Isosorbide Dinitrate/Hydralazine 1 each 06/19/20 10:45 06/21/20 09:56 Isosorb Dinit/Hydralazine 20-37.5mg Tab PO 1 each BID SAUL Administration Pantoprazole Sodium 40 mg 06/21/20 07:30 06/21/20 09:55 Pantoprazole 40 Mg Tab PO 40 mg QDAC SAUL Administration Sodium Chloride 50 ml 06/19/20 17:00 06/20/20 21:06 Sodium Chloride 0.9% 50 Ml Ivpb IV 06/22/20 21:01 50 ml Q24HR@2100 SAUL Administration Zinc Sulfate 220 mg 06/19/20 22:00 06/21/20 09:54 Zinc Sulfate 220 Mg Cap PO 220 mg BID SAUL Administration Nutrition/Malnutrition Assess - Dietary Evaluation Nutrition/Malnutrition Findings: Nutrition Notes Start: 06/19/20 12:05 Freq: Status: Active Protocol: Document 06/19/20 12:05 AL (Rec: 06/19/20 12:26 AL [id number]) Co-Sign 06/19/20 12:05 LP Nutrition Notes 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 Pt Andreas score is 16. Pt states appetite comes and goes. Pt. ate 50% of breakfast this morning and is tolerating hospitlal meals at 75% Pt has diabetic foot ulcer . Percent of energy/protein needs met: 72%/ 57% Burn Absent Trauma Absent GI Symptoms Nausea,Vomiting Current % PO Fair (50-74%) Minimum of two criteria No #1 Nutrition Diagnosis Increased nutrient needs ( specify in comment below) Comments: Protein Etiology nee for wound healing As Evidenced by Signs and Symptoms Diabetic foot ulcer Is patient on ventilator? No Is Patient Ambulatory and/or Out of Bed Yes REE-([facility]-ambulatory/OOB) [ 2893.319 [id number]] Kcal/Kg value to use for calculation 18 Approximate Energy Requirements Using 2322 kcal/Kg Calculation Used for Recommendations Kcal/kg Additional Notes Protein: 111-133 g (1.25-1.5 g /kg IBW 89 kg) Fluid: 1 ml/kcal Nutrition Intervention Change Diet Order: Change to Cardiac/ Consistent CHO Add Supplement/Snack (indicate name/kcal Ensure HP Chocolate /protein ) Provides kCal: 360 Provides Protein (gm) 32 Teaching Recipient Patient Learning Readiness Good Teaching Methods Discussion,Handout Response to Teaching Verbalize understanding Education Handouts Provided Nausea and Vomiting Nutrition Therapy Barriers to Learning No Barriers RD phone number provided Yes Patient aware of follow up options Yes Goal #1 Change diet order Goal #2 Meet 75% of total energy and protein needs po Goal #3 ONS tolerance. Goal #4 Wound healing Anticipated Discharge Needs: Cardiac/Consitent CHO diet Follow-Up By: 06/24/20 Additional Comments F/U for diet change, intakes, N/V, and ONS tolerance
--- NOTE | 2020-06-21 13:46 | Progress Note ---
Assessment and Plan Acute hypoxemic respiratory failure. PUI COVID-19 infection. Bilateral pneumonia. Morbid obesity. History of cerebrovascular accident. History of diabetes. Gastroesophageal reflux disease. Hypertension. History of coronary artery disease. Acute kidney injury. Mild hyponatremia. Elevated serum inflammatory markers to include D-dimers and ferritin levels - awake proning as tolerated - continue supplemental oxygen as needed to keep O2 sat's > 92% - continue bronchodilators with pulmonary hygiene per RT - continue systemic steroids (will change to dexamethasone and complete 10 day protocol) - complete empiric CAP AB's therapy with Rocephin and zithromax - PT/OT as tolerated - mobility protocols for pressure ulcer prophylaxis - continue accuchecks with glycemic control per SSI for target BG < 180 mg/dl - GI & VTE prophylaxis - Flu & pneumovax addressed per protocol - continue other care per attending / other consultants COVID SPECIFIC INTERVENTIONS - continue Dexamethasone protocol - continue Remdesivir protocol - monitor inflammatory markers - ferritin, D-dimer, CRP, LDH per facility protocol - continue anticoagulation per System Protocol based on d-dimer - continue contact and airborne isolation ... re-evaluate in am & prn Subjective Date of service: 06/21/20 Principal diagnosis: Ac hypoxemic resp failure; PUI COVID-19; PNA; Morbid obesity; H/O CVA; DMII Interval history: Patient is seen today for: Acute hypoxemic respiratory failure; PUI COVID-19 infection; Bilateral pneumonia; Morbid obesity; H/O CVA; DM II; POOL; Elevated serum inflammatory markers to include D-dimers and ferritin levels. Seen and examined at bedside; 24hour events reviewed; nursing and respiratory care staff consulted; no adverse overnight events reported to me; resting in bed; Objective Vital Signs - 12hr 06/21/20 06/21/20 06/21/20 06:11 06:35 08:46 Temperature 99.0 F Pulse Rate 79 Respiratory 18 Rate Blood Pressure 139/70 O2 Sat by Pulse 99 97 98 Oximetry 06/21/20 06/21/20 06/21/20 09:54 10:04 11:25 Temperature 98.1 F Pulse Rate 84 77 Respiratory 18 Rate Blood Pressure 155/90 155/90 113/56 O2 Sat by Pulse 97 Oximetry Constitutional: appears uncomfortable, other (middle aged obese male with milldy increased respiratory effort at rest) Eyes: non-icteric ENT: oropharynx moist, other (large neck circumference) Neck: supple, no lymphadenopathy, no JVD Effort: mildly labored Ascultation: Bilateral: diminished breath sounds, rhonchi Percussion: Bilateral: not dull Cardiovascular: regular rate and rhythm Gastrointestinal: normoactive bowel sounds, soft, non-tender, non-distended Extremities: no cyanosis, pulses normal, no ischemia or petechiae, other (Lefft sided lymphedema) Neurologic: pupils equal and round, other (left hemiparesis) Psychiatric: mood appropriate, affect normal CBC and BMP: 06/20/20 06:47 06/21/20 04:41 ABG, PT/INR, D-dimer: PT/INR, D-dimer D-Dimer 368.8 ng/mlDDU (0-234) H 06/18/20 10:37 Abnormal lab findings: Abnormal Labs 06/18/20 06/18/20 06/18/20 09:03 09:03 09:03 WBC Plt Count 130 L Lymph % (Auto) 10.4 L [place] % (Auto) 9.7 H Baso % (Auto) 2.2 H Lymph # (Auto) 0.5 L Seg Neutrophils % 77.7 H D-Dimer Sodium 132 L Carbon Dioxide 21 L BUN 27 H Creatinine 1.7 H Glucose 300 H POC Glucose Calcium 8.3 L Ferritin Lactate Dehydrogenase Troponin T 0.052 H C-Reactive Protein Albumin 3.3 L HDL Cholesterol 26 L TSH 0.260 L Coronavirus (PCR) 06/18/20 06/18/20 06/18/20 10:37 10:37 10:37 WBC Plt Count Lymph % (Auto) [place] % (Auto) Baso % (Auto) Lymph # (Auto) Seg Neutrophils % D-Dimer 368.8 H Sodium Carbon Dioxide BUN Creatinine Glucose 297 H POC Glucose Calcium Ferritin 324.3 H Lactate Dehydrogenase 348 H Troponin T C-Reactive Protein 6.10 H Albumin HDL Cholesterol TSH Coronavirus (PCR) 06/18/20 06/19/20 06/19/20 16:53 09:56 11:42 WBC Plt Count Lymph % (Auto) [place] % (Auto) Baso % (Auto) Lymph # (Auto) Seg Neutrophils % D-Dimer Sodium 135 L Carbon Dioxide 21 L BUN Creatinine Glucose 125 H POC Glucose 236 H 125 H Calcium 8.2 L Ferritin Lactate Dehydrogenase Troponin T C-Reactive Protein Albumin HDL Cholesterol TSH Coronavirus (PCR) 06/19/20 06/19/20 06/19/20 13:54 16:55 17:36 WBC Plt Count Lymph % (Auto) [place] % (Auto) Baso % (Auto) Lymph # (Auto) Seg Neutrophils % D-Dimer Sodium Carbon Dioxide BUN Creatinine Glucose POC Glucose 164 H 187 H Calcium Ferritin Lactate Dehydrogenase Troponin T 0.031 H D C-Reactive Protein Albumin HDL Cholesterol TSH Coronavirus (PCR) 06/19/20 06/19/20 06/20/20 22:31 Unknown 06:47 WBC 2.8 L Plt Count Lymph % (Auto) [place] % (Auto) Baso % (Auto) Lymph # (Auto) 0.6 L Seg Neutrophils % 72.5 H D-Dimer Sodium Carbon Dioxide BUN Creatinine Glucose POC Glucose 344 H Calcium Ferritin Lactate Dehydrogenase Troponin T C-Reactive Protein Albumin HDL Cholesterol TSH Coronavirus (PCR) Positive A 06/20/20 06/20/20 06/20/20 06:47 07:55 12:33 WBC Plt Count Lymph % (Auto) [place] % (Auto) Baso % (Auto) Lymph # (Auto) Seg Neutrophils % D-Dimer Sodium 134 L Carbon Dioxide BUN 26 H Creatinine 1.4 H Glucose 347 H POC Glucose 304 H 421 H Calcium Ferritin Lactate Dehydrogenase Troponin T C-Reactive Protein Albumin HDL Cholesterol TSH Coronavirus (PCR) 06/20/20 06/20/20 06/21/20 17:39 22:27 04:41 WBC Plt Count Lymph % (Auto) [place] % (Auto) Baso % (Auto) Lymph # (Auto) Seg Neutrophils % D-Dimer Sodium Carbon Dioxide BUN 44 H Creatinine 1.7 H Glucose 251 H POC Glucose 395 H 253 H Calcium Ferritin Lactate Dehydrogenase Troponin T C-Reactive Protein Albumin 3.4 L HDL Cholesterol TSH Coronavirus (PCR) 06/21/20 07:35 WBC Plt Count Lymph % (Auto) [place] % (Auto) Baso % (Auto) Lymph # (Auto) Seg Neutrophils % D-Dimer Sodium Carbon Dioxide BUN Creatinine Glucose POC Glucose 265 H Calcium Ferritin Lactate Dehydrogenase Troponin T C-Reactive Protein Albumin HDL Cholesterol TSH Coronavirus (PCR) Allied health notes reviewed: nursing
[2020-06-21] MEDS: REMDESIVIR 100 MG in SODIUM CHLORIDE 0.9% 250ML 250 ML IV SCH (21:55)
[2020-06-21] MEDS: SODIUM CHLORIDE 0.9% 50 ML IVPB IV SCH (22:33)
[2020-06-22 06:30] LABS: Basophils % (Auto) 0.2 % (0.0-1.8); Eosinophils % (Auto) 0.3 % (0.0-4.3); Hematocrit 38.3 % (35.5-45.6); Hemoglobin 12.6 gm/dl (11.8-15.2); Lymphocytes # (Auto) 0.7 K/mm3 (1.2-5.4); Lymphocytes % (Auto) 9.9 % (13.4-35.0); Mean Corpuscular HGB Conc 33 % (32-34); Mean Corpuscular Volume 89 fl (84-94); Monocytes # (Auto) 0.7 K/mm3 (0.0-0.8); Monocytes % (Auto) 8.9 % (0.0-7.3); Platelet Count 187 K/mm3 (140-440); Red Blood Count 4.32 M/mm3 (3.65-5.03); Red Cell Distribution Width 14.4 % (13.2-15.2)
[2020-06-22 06:41] LABS: Alanine Aminotransferase 26 units/L (7-56); Albumin 3.2 g/dL (3.9-5); BUN/Creatinine Ratio 30; Blood Urea Nitrogen 39 mg/dL (9-20); Calcium 8.5 mg/dL (8.4-10.2); Hemolysis Index 50
[2020-06-22] MEDS: INSULIN LISPRO 100 UNIT/ML SUB-Q SCH ×4 (08:27→23:38)
--- NOTE | 2020-06-22 09:35 | Progress Note ---
Assessment and Plan Assessment and plan: This is a 54-year-old -[place] male presents to the emergency department from home with complaint of a 3 to 4-day history of chills, generalized fatigue/weakness, a mixed dry and productive cough, nausea with vomiting, decreased appetite. The patient's , who works at [employer], says that she was recently sick with similar symptoms but she has improved while the patient has not. Eating food increases his nausea and makes him vomit. However he has been able to drink green tea and water to stay hydrated. No obvious fever but the patient has felt warm as if he has a fever. He has been using [employer] for his cough. No recent travel. He has a past medical history of hypertension, CVA wi th residual left-sided weakness, insulin-dependent diabetes, and coronary artery disease with cardiac stents. His primary care physician is Dr. Yee and his it compliance manager is Dr Farmer. He denies any tobacco or illicit drug use. Covid 19 induced pneumonia -Chest x-ray showed increased perihilar and lower lobe opacities -Patient placed on Covid protocol, continue to follow inflammatory markers -Follow calcitonin level, empiric antibiotics for now Acute hypoxic respiratory failure secondary to Covid pneumonia Severe sepsis secondary to Covid pneumonia Hypertension, resume home meds, monitor BP History of CVA, continue aspirin Plavix and statin COPD with mild exacerbation -Continue empiric steroid, empiric antibiotics and nebulizer breathing treatments GERD, continue home regimen of PPI Diabetes mellitus type 2 -Monitor blood glucose [facility] and start home insulin regimen with SSI Coronary artery disease -Continue routine home cardiac medications POOL, likely vasomotor nephropathy - monitor BMP, avoid nephrotoxins NSTEMI type II -Likely due to POOL, and underlying pneumonia -Follow with serial troponin, order 2D echocardiogram Morbid obesity, weight reduction diet and exercise counseling when clinically more stable as outpatient DVT prophylaxis, Lovenox Chest x-ray: IMPRESSION: 1. Increased bilateral perihilar lower lobe opacities. Doppler bilateral lower extremity:IMPRESSION: 1. No sonographic evidence for DVT in either lower extremity. 2. Superficial thrombus in the left saphenous vein. 06/20: In addition to adjustments made above with diagnosis will continue management per infectious disease recommendation and pulmonary recommendation. Incentive spirometer added in addition to vitamins. Recommended to the patient for need to prone if able to. He verbalized understanding. Wean oxygen as tolerated patient currently on 55% high flow. Continue remdesivir monitor renal function closely. We will hold off on diuresis at this time due to POOL. With diagnosis also advised patient on need for family members to get tested. The high probability of a clinically significant, sudden or life threatening deterioration of the [pulmonary, renal, cardiac] system(s) required my full and direct attention, intervention and personal management. The aggregate critical care time was [35] minutes. This time is in addition to time spent performing reported procedures but includes the following: [x] Data Review and interpretation [x] Patient assessment and monitoring of vital signs [x] Documentation [x] Medication orders and management Daily course 06/21/20 Patient is seen and examined. Patient denied any shortness of breath, no chest pain. Complained of leg edema. No other complaint. Patient is getting Decadron 6 mg IV daily and remdesivir 100 mg IV daily for Covid. Day 3 of 5. Continue current management. ID and pulmonary follow-up. Out of bed to chair. 06/22/20 Patient is seen and examined. Patient denied any shortness of breath, Patient complained of coughing yellowish phlegm. complained of leg edema. Zithromax to 50 mg p.o. daily. Patient is getting Decadron 6 mg IV daily and remdesivir 100 mg IV daily for Covid. Day 4 of 5. Continue current management. ID and pulmonary follow-up. Out of bed to chair. BMP in the morning History Interval history: 06/22/20 Patient is seen and examined. Patient denied any shortness of breath, no cp. Patient complained of coughing yellowish phlegm. complained of leg edema. No other complaint. Zithromax to 50 mg p.o. daily. Patient is getting Decadron 6 mg IV daily and remdesivir 100 mg IV daily for Covid. Day 4 of 5. Continue current management. ID and pulmonary follow-up. Out of bed to chair. BMP in the morning Hospitalist Physical - Constitutional Vitals: Temp Pulse Resp BP Pulse Ox 98.8 F 86 20 147/81 96 06/22/20 06:10 06/22/20 06:10 06/22/20 06:10 06/22/20 06:10 06/22/20 08:39 General appearance: Present: no acute distress - EENT Eyes: Present: PERRL ENT: hearing intact - Neck Neck: Present: supple - Respiratory Respiratory effort: normal - Cardiovascular Rhythm: regular Heart Sounds: Present: S1 & S2 - Extremities Extremities: no ischemia, pulses intact Extremity abnormal: edema - Abdominal General gastrointestinal: soft, non-tender HEART Score - HEART Score Troponin: Troponin T 0.014 ng/mL (0.00-0.029) 06/20/20 14:12 Results - Labs CBC & Chem 7: 06/22/20 04:28 06/22/20 04:28 Labs: Laboratory Last Values WBC 7.5 K/mm3 (4.5-11.0) 06/22/20 04:28 RBC 4.32 M/mm3 (3.65-5.03) 06/22/20 04:28 Hgb 12.6 gm/dl (11.8-15.2) 06/22/20 04:28 Hct 38.3 % (35.5-45.6) 06/22/20 04:28 MCV 89 fl (84-94) 06/22/20 04:28 MCH 29 pg (28-32) 06/22/20 04:28 MCHC 33 % (32-34) 06/22/20 04:28 RDW 14.4 % (13.2-15.2) 06/22/20 04:28 Plt Count 187 K/mm3 (140-440) 06/22/20 04:28 Lymph % (Auto) 9.9 % (13.4-35.0) L 06/22/20 04:28 [place] % (Auto) 8.9 % (0.0-7.3) H 06/22/20 04:28 Eos % (Auto) 0.3 % (0.0-4.3) 06/22/20 04:28 Baso % (Auto) 0.2 % (0.0-1.8) 06/22/20 04:28 Lymph # (Auto) 0.7 K/mm3 (1.2-5.4) L 06/22/20 04:28 [place] # (Auto) 0.7 K/mm3 (0.0-0.8) 06/22/20 04:28 Eos # (Auto) 0.0 K/mm3 (0.0-0.4) 06/22/20 04:28 Baso # (Auto) 0.0 K/mm3 (0.0-0.1) 06/22/20 04:28 Seg Neutrophils % 80.7 % (40.0-70.0) H 06/22/20 04:28 Seg Neutrophils # 6.1 K/mm3 (1.8-7.7) 06/22/20 04:28 D-Dimer 368.8 ng/mlDDU (0-234) H 06/18/20 10:37 Sodium 140 mmol/L (137-145) 06/22/20 04:28 Potassium 4.2 mmol/L (3.6-5.0) 06/22/20 04:28 Chloride 105.0 mmol/L (98-107) 06/22/20 04:28 Carbon Dioxide 25 mmol/L (22-30) 06/22/20 04:28 Anion Gap 14 mmol/L 06/22/20 04:28 BUN 39 mg/dL (9-20) H 06/22/20 04:28 Creatinine 1.3 mg/dL (0.8-1.3) 06/22/20 04:28 Estimated GFR > 60 ml/min 06/22/20 04:28 BUN/Creatinine Ratio 30 % 06/22/20 04:28 Glucose 132 mg/dL (75-100) H 06/22/20 04:28 POC Glucose 116 mg/dL (70-105) H 06/22/20 07:35 Calcium 8.5 mg/dL (8.4-10.2) 06/22/20 04:28 Ferritin 324.3 ng/mL (30.0-300.0) H 06/18/20 10:37 Total Bilirubin 0.40 mg/dL (0.1-1.2) 06/22/20 04:28 AST 34 units/L (5-40) 06/22/20 04:28 ALT 26 units/L (7-56) 06/22/20 04:28 Alkaline Phosphatase 81 units/L (35-129) 06/22/20 04:28 Lactate Dehydrogenase 348 units/L (91-180) H 06/18/20 10:37 Troponin T 0.014 ng/mL (0.00-0.029) 06/20/20 14:12 C-Reactive Protein 6.10 mg/dL (0.00-1.30) H 06/18/20 10:37 Total Protein 6.3 g/dL (6.3-8.2) 06/22/20 04:28 Albumin 3.2 g/dL (3.9-5) L 06/22/20 04:28 Albumin/Globulin Ratio 1.0 % 06/22/20 04:28 Triglycerides 123 mg/dL (2-149) 06/18/20 09:03 Cholesterol 122 mg/dL (50-199) 06/18/20 09:03 LDL Cholesterol Direct 77 mg/dL (50-130) 06/18/20 09:03 HDL Cholesterol 26 mg/dL (40-59) L 06/18/20 09:03 Cholesterol/HDL Ratio 4.69 % 06/18/20 09:03 Lipase 17 units/L (13-60) 06/18/20 09:03 Procalcitonin 0.30 ng/mL (<0.15) 06/18/20 10:37 TSH 0.260 mlU/mL (0.270-4.200) L 06/18/20 09:03 Free T4 1.11 ng/dL (0.76-1.46) 06/18/20 15:42 Coronavirus (PCR) Positive (Negative) A 06/19/20 Unknown Microbiology: Microbiology 06/18/20 10:37 Peripheral/Venous Blood Culture - Preliminary NO GROWTH AFTER 72 HOURS 06/18/20 10:37 Peripheral/Venous Blood Culture - Preliminary NO GROWTH AFTER 72 HOURS Hernandez/IV: Voiding Method Urinal Active Medications - Current Medications Current Medications: Generic Name Dose Route Start Last Admin Trade Name Freq PRN Reason Stop Dose Admin Acetaminophen 650 mg 06/19/20 10:26 06/19/20 11:08 Acetaminophen 325 Mg Tab PO 650 mg Q4H PRN Administration Pain MILD(1-3)/Fever >100.5/VACA Albuterol 2 puff 06/18/20 21:48 06/19/20 09:33 Albuterol 8.5 Gm Mdi Inhalation IH 2 spray Q6HRT PRN Administration Shortness Of Breath Amlodipine Besylate 10 mg 06/19/20 10:00 06/21/20 09:55 Amlodipine 10 Mg Tab PO 10 mg QDAY SAUL Administration Ascorbic Acid 1,000 mg 06/19/20 22:00 02/27/21 22:05 Ascorbic Acid 500 Mg Tab PO 1,000 mg BID SAUL Administration Aspirin 325 mg 06/19/20 10:00 06/21/20 09:56 Aspirin 325 Mg Tab PO 325 mg QDAY SAUL Administration Azithromycin 250 mg 06/22/20 10:00 Azithromycin 250 Mg Tab PO QDAY [facility] Protocol Carvedilol 25 mg 06/20/20 22:00 06/21/20 22:03 Carvedilol 25 Mg Tab PO 25 mg BID SAUL Administration Cholecalciferol 5,000 unit 06/20/20 10:00 06/21/20 09:54 Cholecalciferol (Vit D3) 5,000 Unit Tab PO 5,000 unit DAILY SAUL Administration Clonidine HCl 0.1 mg 06/19/20 14:00 06/21/20 20:37 Clonidine 0.1 Mg Tab PO 0.1 mg TID SAUL Administration Clopidogrel Bisulfate 75 mg 06/19/20 10:00 06/21/20 09:54 Clopidogrel 75 Mg Tab PO 75 mg QDAY SAUL Administration Dexamethasone 6 mg 06/21/20 10:00 06/21/20 09:56 Dexamethasone 4 Mg/Ml Vial IV 06/29/20 09:59 6 mg DAILY SAUL Administration Enoxaparin Sodium 40 mg 06/19/20 22:00 06/21/20 22:04 Enoxaparin 40 Mg/0.4 Ml Inj SUB-Q 40 mg BID SAUL Administration Protocol Furosemide 40 mg 06/22/20 09:29 Furosemide 40 Mg/4 Ml Inj IV 06/22/20 09:30 ONCE ONE Guaifenesin 200 mg 06/18/20 21:59 06/19/20 05:13 Guaifenesin 100 Mg/5 Ml Oral Liqd PO 200 mg Q4H PRN Administration Cough REMDESIVIR 100 mg/ Sodium 250 mls @ 500 mls/hr 06/20/20 21:00 06/21/20 21:55 Chloride IV 06/23/20 21:29 500 mls/hr Q24HR@2100 SAUL Administration Insulin Human Isoph/Insulin Regular 30 unit 06/20/20 17:00 06/21/20 17:01 Insulin Nph/Regular 70/30 Inj SUB-Q 30 unit BIDDIAB SAUL Administration Insulin Human Lispro 0 unit 06/18/20 22:00 06/22/20 08:27 Insulin Lispro 100 Unit/Ml SUB-Q Not Given ACHS SAUL Protocol Isosorbide Dinitrate/Hydralazine 1 each 06/19/20 10:45 06/21/20 22:02 Isosorb Dinit/Hydralazine 20-37.5mg Tab PO 1 each BID SAUL Administration Pantoprazole Sodium 40 mg 06/21/20 07:30 06/21/20 09:55 Pantoprazole 40 Mg Tab PO 40 mg QDAC SAUL Administration Sodium Chloride 50 ml 06/19/20 17:00 06/21/20 22:33 Sodium Chloride 0.9% 50 Ml Ivpb IV 06/22/20 21:01 50 ml Q24HR@2100 SAUL Administration Zinc Sulfate 220 mg 06/19/20 22:00 06/21/20 22:04 Zinc Sulfate 220 Mg Cap PO 220 mg BID SAUL Administration Nutrition/Malnutrition Assess - Dietary Evaluation Nutrition/Malnutrition Findings: Nutrition Notes Start: 06/19/20 12:05 Freq: Status: Active Protocol: Document 06/19/20 12:05 AL (Rec: 06/19/20 12:26 AL [id number]) Co-Sign 06/19/20 12:05 LP Nutrition Notes Need for Assessment 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 Pt Andreas score is 16. Pt states appetite comes and goes. Pt. ate 50% of breakfast this morning and is tolerating hospitlal meals at 75% Pt has diabetic foot ulcer . Percent of energy/protein needs met: 72%/ 57% Burn Absent Trauma Absent GI Symptoms Nausea,Vomiting Current % PO Fair (50-74%) Minimum of two criteria No #1 Nutrition Diagnosis Increased nutrient needs ( specify in comment below) Comments: Protein Etiology nee for wound healing As Evidenced by Signs and Symptoms Diabetic foot ulcer Is patient on ventilator? No Is Patient Ambulatory and/or Out of Bed Yes REE-(Girard-St. Jeor-ambulatory/OOB) [ 2893.319 NUTR.[id number]] Kcal/Kg value to use for calculation 18 Approximate Energy Requirements Using 2322 kcal/Kg Calculation Used for Recommendations Kcal/kg Additional Notes Protein: 111-133 g (1.25-1.5 g /kg IBW 89 kg) Fluid: 1 ml/kcal Nutrition Intervention Change Diet Order: Change to Cardiac/ Consistent CHO Add Supplement/Snack (indicate name/kcal Ensure HP Chocolate /protein ) Provides kCal: 360 Provides Protein (gm) 32 Teaching Recipient Patient Learning Readiness Good Teaching Methods Discussion,Handout Response to Teaching Verbalize understanding Education Handouts Provided Nausea and Vomiting Nutrition Therapy Barriers to Learning No Barriers RD phone number provided Yes Patient aware of follow up options Yes Goal #1 Change diet order Goal #2 Meet 75% of total energy and protein needs po Goal #3 ONS tolerance. Goal #4 Wound healing Anticipated Discharge Needs: Cardiac/Consitent CHO diet Follow-Up By: 06/24/20 Additional Comments F/U for diet change, intakes, N/V, and ONS tolerance - Malnutrition Assessment Minimum of two criteria: No - Attestation Statement I have reviewed and agreed w/ Malnutrition eval & tx plan: Yes
[2020-06-22] MEDS: ZINC SULFATE 220 MG CAP PO SCH ×2 (09:51→22:08)
[2020-06-22] MEDS: ENOXAPARIN 40 MG/0.4 ML INJ SUB-Q SCH ×2 (09:51→22:42)
[2020-06-22] MEDS: INSULIN NPH/REGULAR 70/30 INJ SUB-Q SCH ×2 (09:51→16:18)
[2020-06-22] MEDS: ASCORBIC ACID 500 MG TAB PO SCH ×2 (09:52→22:08)
[2020-06-22] MEDS: cloNIDine 0.1 MG TAB PO SCH ×3 (09:52→21:00)
[2020-06-22] MEDS: carvediloL 25 MG TAB PO SCH ×2 (09:53→22:09)
[2020-06-22] MEDS: CLOPIDOGREL 75 MG TAB PO SCH (09:53)
[2020-06-22] MEDS: CHOLECALCIFEROL (VIT D3) 5,000 UNIT TAB PO SCH (09:53)
[2020-06-22] MEDS: ASPIRIN 325 MG TAB PO SCH (09:53)
[2020-06-22] MEDS: amLODIPine 10 MG TAB PO SCH (09:54)
[2020-06-22] MEDS: AZITHROMYCIN 250 MG TAB PO SCH (09:55)
[2020-06-22] MEDS: ISOSORB DINIT/HYDRALAZINE 20-37.5MG TAB PO SCH ×2 (09:58→22:08)
[2020-06-22] MEDS ORDERED: FUROSEMIDE 40 MG/4 ML INJ IV ONE (10:00)
[2020-06-22] MEDS: dexAMETHasone 4 MG/ML VIAL IV SCH (10:04)
[2020-06-22] MEDS: PANTOPRAZOLE 40 MG TAB PO SCH (10:04)
--- NOTE | 2020-06-22 12:20 | Progress Note ---
Assessment and Plan Cultures: Blood culture no growth so far SARS-CoV-2 PCR positive A/P: 54-year-old man past medical history hypertension, VA, diabetes, CVA admitted with COVID-19 #Severe COVID-19 pneumonia: Patient presented with a week of symptoms, chest x- ray with diffuse bilateral infiltrates. Inflammatory markers elevated. No evidence of DVT #Acute hypoxemic respiratory failure: Likely secondary to COVID-19 infection. Currently on 5 L nasal cannula. #Diabetes: With hyperglycemia #Leukopenia: Likely secondary to COVID-19. Recs: -Steroids per pulmonary for 10 days -Remdesivir Day 4 of 5. -Obtain q48-72h inflammatory markers - ferritin, Ddimer, CRP, LDH -Anticoagulation per hospital protocol -Proning as able Leatha Frias MD [facility] ([facility]) Office [phone] Subjective Date of service: 06/22/20 Principal diagnosis: Ac hypoxemic resp failure; PUI COVID-19; PNA; Morbid obesity; H/O CVA; DMII Interval history: Patient feeling better. Denies any shortness of breath, cough, fever. Objective - Exam Narrative Exam: Physical exam deferred to minimize COVID-19 transmission during pandemic - Constitutional Vitals: Vital Signs Temp Pulse Resp BP Pulse Ox 98.1 F 84 20 125/73 95 06/22/20 11:10 06/22/20 11:10 06/22/20 06:10 06/22/20 11:10 06/22/20 11:10 Temperature -Last 24 Hours Temperature 98.1 F Temperature 98.8 F Temperature 99.2 F Temperature 97.5 F - Labs CBC & Chem 7: 06/22/20 04:28 06/22/20 04:28 Labs: Abnormal lab results 06/21/20 06/21/20 06/21/20 Range/Units 11:23 16:01 21:34 Lymph % (Auto) (13.4-35.0) % [place] % (Auto) (0.0-7.3) % Lymph # (Auto) (1.2-5.4) K/mm3 Seg Neutrophils % (40.0-70.0) % BUN (9-20) mg/dL Glucose (75-100) mg/dL POC Glucose 287 H 246 H 222 H (70-105) mg/dL Albumin (3.9-5) g/dL 06/22/20 06/22/20 06/22/20 Range/Units 04:28 04:28 07:35 Lymph % (Auto) 9.9 L (13.4-35.0) % [place] % (Auto) 8.9 H (0.0-7.3) % Lymph # (Auto) 0.7 L (1.2-5.4) K/mm3 Seg Neutrophils % 80.7 H (40.0-70.0) % BUN 39 H (9-20) mg/dL Glucose 132 H (75-100) mg/dL POC Glucose 116 H (70-105) mg/dL Albumin 3.2 L (3.9-5) g/dL
[2020-06-22] MEDS: REMDESIVIR 100 MG in SODIUM CHLORIDE 0.9% 250ML 250 ML IV SCH (22:05)
[2020-06-22] MEDS: SODIUM CHLORIDE 0.9% 50 ML IVPB IV SCH (22:42)
[2020-06-23 05:17] LABS: Alanine Aminotransferase 28 units/L (7-56); Albumin 3.4 g/dL (3.9-5); BUN/Creatinine Ratio 22; Blood Urea Nitrogen 29 mg/dL (9-20); Calcium 8.5 mg/dL (8.4-10.2); Hemolysis Index 1
[2020-06-23] MEDS: INSULIN LISPRO 100 UNIT/ML SUB-Q SCH ×4 (07:30→22:42)
[2020-06-23] MEDS: INSULIN NPH/REGULAR 70/30 INJ SUB-Q SCH ×2 (08:00→17:38)
[2020-06-23] MEDS: cloNIDine 0.1 MG TAB PO SCH ×3 (08:43→21:04)
[2020-06-23] MEDS: PANTOPRAZOLE 40 MG TAB PO SCH (08:46)
--- NOTE | 2020-06-23 09:22 | Progress Note ---
Assessment and Plan Assessment and plan: This is a 54-year-old -Armenian male presents to the emergency department from home with complaint of a 3 to 4-day history of chills, generalized fatigue/weakness, a mixed dry and productive cough, nausea with vomiting, decreased appetite. The patient's , who works at [employer], says that she was recently sick with similar symptoms but she has improved while the patient has not. Eating food increases his nausea and makes him vomit. However he has been able to drink green tea and water to stay hydrated. No obvious fever but the patient has felt warm as if he has a fever. He has been using [employer] for his cough. No recent travel. He has a past medical history of hypertension, CVA with residual left-sided weakness, insulin-dependent diabetes, and coronary artery disease with cardiac stents. His primary care physician is Dr. Yee and his deputy jailer is Dr Farmer. He denies any tobacco or illicit drug use. Covid 19 induced pneumonia -Chest x-ray showed increased perihilar and lower lobe opacities -Patient placed on Covid protocol, continue to follow inflammatory markers -Follow calcitonin level, empiric antibiotics for now Acute hypoxic respiratory failure secondary to Covid pneumonia Severe sepsis secondary to Covid pneumonia Hypertension, resume home meds, monitor BP History of CVA, continue aspirin Plavix and statin COPD with mild exacerbation -Continue empiric steroid, empiric antibiotics and nebulizer breathing treatments GERD, continue home regimen of PPI Diabetes mellitus type 2 -Monitor blood glucose [facility]A [facility] and start home insulin regimen with SSI Coronary artery disease -Continue routine home cardiac medications POOL, likely vasomotor nephropathy - monitor BMP, avoid nephrotoxins NSTEMI type II -Likely due to POOL, and underlying pneumonia -Follow with serial troponin, order 2D echocardiogram Morbid obesity, weight reduction diet and exercise counseling when clinically more stable as outpatient DVT prophylaxis, Lovenox Chest x-ray: IMPRESSION: 1. Increased bilateral perihilar lower lobe opacities. Doppler bilateral lower extremity:IMPRESSION: 1. No sonographic evidence for DVT in either lower extremity. 2. Superficial thrombus in the left saphenous vein. 06/20: In addition to adjustments made above with diagnosis will continue management per infectious disease recommendation and pulmonary recommendation. Incentive spirometer added in addition to vitamins. Recommended to the patient for need to prone if able to. He verbalized understanding. Wean oxygen as tolerated patient currently on 55% high flow. Continue remdesivir monitor renal function closely. We will hold off on diuresis at this time due to POOL. With diagnosis also advised patient on need for family members to get tested. 06/21/20 Patient is seen and examined. Patient denied any shortness of breath, no chest pain. Complained of leg edema. No other complaint. Patient is getting Decadron 6 mg IV daily and remdesivir 100 mg IV daily for Covid. Day of 5. Continue current management. ID and pulmonary follow-up. Out of bed to chair. 06/22/20 Patient is seen and examined. Patient denied any shortness of breath, Patient complained of coughing yellowish phlegm. complained of leg edema. Zithromax to 50 mg p.o. daily. Patient is getting Decadron 6 mg IV daily and remdesivir 100 mg IV daily for Covid. Day 4 of 5. Continue current management. ID and pulmonary follow-up. Out of bed to chair. BMP in the morning 06/23: Patient seen and examined this morning still with mild shortness of breath but has improved down to 3 L nasal cannula.. Will obtain home O2 evaluation today. Today will be day 5 of 5 of remdesivir. Anticipate discharge in 24 hours History Interval history: Patient seen and clinically stable no new complaints although improving shortness of breath, with weaning O2. Hospitalist Physical - Physical exam Narrative exam: VITAL SIGNS: Reviewed. GENERAL: The patient appears normally developed, still with mild shortness of breath, sitting up on the bed obese vital signs as documented. HEAD: No signs of head trauma. EYES: Pupils are equal. Extraocular motions intact. EARS: Hearing grossly intact. MOUTH: Oropharynx is normal. NECK: No adenopathy, no JVD. CHEST: Chest with diminished breath sounds bilaterally. No wheezes, rales, or rhonchi. CARDIAC: Regular rate and rhythm. S1 and S2, without murmurs, gallops, or rubs. VASCULAR: No Edema. Peripheral pulses normal and equal in all extremities. ABDOMEN: Soft, non tender and non distended. No rebound or guarding, and no masses palpated. Bowel Sounds normal. MUSCULOSKELETAL: Good range of motion of all major joints. Extremities without clubbing, cyanosis or edema. NEUROLOGIC EXAM: Alert and oriented x 3 No focal sensory or strength deficit s. Speech normal. Follows commands. PSYCHIATRIC: Mood normal. SKIN: detail exam as documented in skin assessment - Constitutional Vitals: Temp Pulse Resp BP Pulse Ox 98.6 F 81 20 136/69 93 06/23/20 04:51 06/23/20 04:51 06/23/20 04:51 06/23/20 04:51 06/23/20 04:51 General appearance: Present: no acute distress HEART Score - HEART Score Troponin: Troponin T 0.014 ng/mL (0.00-0.029) 06/20/20 14:12 Results - Labs CBC & Chem 7: 06/22/20 04:28 06/23/20 04:08 Labs: Laboratory Last Values WBC 7.5 K/mm3 (4.5-11.0) 06/22/20 04:28 RBC 4.32 M/mm3 (3.65-5.03) 06/22/20 04:28 Hgb 12.6 gm/dl (11.8-15.2) 06/22/20 04:28 Hct 38.3 % (35.5-45.6) 06/22/20 04:28 MCV 89 fl (84-94) 06/22/20 04:28 MCH 29 pg (28-32) 06/22/20 04:28 MCHC 33 % (32-34) 06/22/20 04:28 RDW 14.4 % (13.2-15.2) 06/22/20 04:28 Plt Count 187 K/mm3 (140-440) 06/22/20 04:28 Lymph % (Auto) 9.9 % (13.4-35.0) L 06/22/20 04:28 [place] % (Auto) 8.9 % (0.0-7.3) H 06/22/20 04:28 Eos % (Auto) 0.3 % (0.0-4.3) 06/22/20 04:28 Baso % (Auto) 0.2 % (0.0-1.8) 06/22/20 04:28 Lymph # (Auto) 0.7 K/mm3 (1.2-5.4) L 06/22/20 04:28 [place] # (Auto) 0.7 K/mm3 (0.0-0.8) 06/22/20 04:28 Eos # (Auto) 0.0 K/mm3 (0.0-0.4) 06/22/20 04:28 Baso # (Auto) 0.0 K/mm3 (0.0-0.1) 06/22/20 04:28 Seg Neutrophils % 80.7 % (40.0-70.0) H 06/22/20 04:28 Seg Neutrophils # 6.1 K/mm3 (1.8-7.7) 06/22/20 04:28 D-Dimer 368.8 ng/mlDDU (0-234) H 06/18/20 10:37 Sodium 137 mmol/L (137-145) 06/23/20 04:08 Potassium 3.7 mmol/L (3.6-5.0) 06/23/20 04:08 Chloride 102.1 mmol/L (98-107) 06/23/20 04:08 Carbon Dioxide 25 mmol/L (22-30) 06/23/20 04:08 Anion Gap 14 mmol/L 06/23/20 04:08 BUN 29 mg/dL (9-20) H 06/23/20 04:08 Creatinine 1.3 mg/dL (0.8-1.3) 06/23/20 04:08 Estimated GFR > 60 ml/min 06/23/20 04:08 BUN/Creatinine Ratio 22 % 06/23/20 04:08 Glucose 203 mg/dL (75-100) H 06/23/20 04:08 POC Glucose 205 mg/dL (70-105) H 06/23/20 07:50 Calcium 8.5 mg/dL (8.4-10.2) 06/23/20 04:08 Ferritin 324.3 ng/mL (30.0-300.0) H 06/18/20 10:37 Total Bilirubin 0.50 mg/dL (0.1-1.2) 06/23/20 04:08 AST 26 units/L (5-40) 06/23/20 04:08 ALT 28 units/L (7-56) 06/23/20 04:08 Alkaline Phosphatase 86 units/L (35-129) 06/23/20 04:08 Lactate Dehydrogenase 348 units/L (91-180) H 06/18/20 10:37 Troponin T 0.014 ng/mL (0.00-0.029) 06/20/20 14:12 C-Reactive Protein 6.10 mg/dL (0.00-1.30) H 06/18/20 10:37 Total Protein 6.5 g/dL (6.3-8.2) 06/23/20 04:08 Albumin 3.4 g/dL (3.9-5) L 06/23/20 04:08 Albumin/Globulin Ratio 1.1 % 06/23/20 04:08 Triglycerides 123 mg/dL (2-149) 06/18/20 09:03 Cholesterol 122 mg/dL (50-199) 06/18/20 09:03 LDL Cholesterol Direct 77 mg/dL (50-130) 06/18/20 09:03 HDL Cholesterol 26 mg/dL (40-59) L 06/18/20 09:03 Cholesterol/HDL Ratio 4.69 % 06/18/20 09:03 Lipase 17 units/L (13-60) 06/18/20 09:03 Procalcitonin 0.30 ng/mL (<0.15) 06/18/20 10:37 TSH 0.260 mlU/mL (0.270-4.200) L 06/18/20 09:03 Free T4 1.11 ng/dL (0.76-1.46) 06/18/20 15:42 Coronavirus (PCR) Positive (Negative) A 06/19/20 Unknown Microbiology: Microbiology 06/18/20 10:37 Peripheral/Venous Blood Culture - Preliminary NO GROWTH AFTER 4 DAYS 06/18/20 10:37 Peripheral/Venous Blood Culture - Preliminary NO GROWTH AFTER 4 DAYS Hernandez/IV: Voiding Method Urinal Active Medications - Current Medications Current Medications: Generic Name Dose Route Start Last Admin Trade Name Freq PRN Reason Stop Dose Admin Acetaminophen 650 mg 06/19/20 10:26 06/19/20 11:08 Acetaminophen 325 Mg Tab PO 650 mg Q4H PRN Administration Pain MILD(1-3)/Fever >100.5/VACA Albuterol 2 puff 06/18/20 21:48 06/19/20 09:33 Albuterol 8.5 Gm Mdi Inhalation IH 2 spray Q6HRT PRN Administration Shortness Of Breath Amlodipine Besylate 10 mg 06/19/20 10:00 06/22/20 09:54 Amlodipine 10 Mg Tab PO 10 mg QDAY SAUL Administration Ascorbic Acid 1,000 mg 06/19/20 22:00 06/22/20 22:08 Ascorbic Acid 500 Mg Tab PO 1,000 mg BID SAUL Administration Aspirin 325 mg 06/19/20 10:00 06/22/20 09:53 Aspirin 325 Mg Tab PO 325 mg QDAY SAUL Administration Azithromycin 250 mg 06/22/20 10:00 06/22/20 09:55 Azithromycin 250 Mg Tab PO 06/26/20 10:01 250 mg QDAY SAUL Administration Protocol Carvedilol 25 mg 06/20/20 22:00 06/22/20 22:09 Carvedilol 25 Mg Tab PO 25 mg BID SAUL Administration Cholecalciferol 5,000 unit 06/20/20 10:00 06/22/20 09:53 Cholecalciferol (Vit D3) 5,000 Unit Tab PO 5,000 unit DAILY SAUL Administration Clonidine HCl 0.1 mg 06/19/20 14:00 06/23/20 08:43 Clonidine 0.1 Mg Tab PO 0.1 mg TID SAUL Administration Clopidogrel Bisulfate 75 mg 06/19/20 10:00 06/22/20 09:53 Clopidogrel 75 Mg Tab PO 75 mg QDAY SUAL Administration Dexamethasone 6 mg 06/23/20 10:00 Dexamethasone 4 Mg Tab PO 06/29/20 12:00 DAILY SAUL Enoxaparin Sodium 40 mg 06/19/20 22:00 06/22/20 22:42 Enoxaparin 40 Mg/0.4 Ml Inj SUB-Q 40 mg BID SAUL Administration Protocol Guaifenesin 200 mg 06/18/20 21:59 06/19/20 05:13 Guaifenesin 100 Mg/5 Ml Oral Liqd PO 200 mg Q4H PRN Administration Cough REMDESIVIR 100 mg/ Sodium 250 mls @ 500 mls/hr 06/20/20 21:00 06/22/20 22:05 Chloride IV 06/23/20 21:29 500 mls/hr Q24HR@2100 SAUL Administration Insulin Human Isoph/Insulin Regular 30 unit 06/20/20 17:00 06/23/20 08:00 Insulin Nph/Regular 70/30 Inj SUB-Q 30 unit BIDDIAB SAUL Administration Insulin Human Lispro 0 unit 06/18/20 22:00 06/23/20 07:30 Insulin Lispro 100 Unit/Ml SUB-Q 2 unit ACHS SAUL Administration Protocol Isosorbide Dinitrate/Hydralazine 1 each 06/19/20 10:45 06/22/20 22:08 Isosorb Dinit/Hydralazine 20-37.5mg Tab PO 1 each BID SAUL Administration Pantoprazole Sodium 40 mg 06/21/20 07:30 06/23/20 08:46 Pantoprazole 40 Mg Tab PO 40 mg QDAC SAUL Administration Zinc Sulfate 220 mg 06/19/20 22:00 06/22/20 22:08 Zinc Sulfate 220 Mg Cap PO 220 mg BID SAUL Administration Nutrition/Malnutrition Assess - Dietary Evaluation Nutrition/Malnutrition Findings: Nutrition Notes Start: 06/19/20 12:05 Freq: Status: Active Protocol: Document 06/19/20 12:05 AL (Rec: 06/19/20 12:26 AL [id number]) Co-Sign 06/19/20 12:05 LP Nutrition Notes Need for Assessment generated from: wrapper 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 Pt Andreas score is 16. Pt states appetite comes and goes. Pt. ate 50% of breakfast this morning and is tolerating hospitlal meals at 75% Pt has diabetic foot ulcer . Percent of energy/protein needs met: 72%/ 57% Burn Absent Trauma Absent GI Symptoms Nausea,Vomiting Current % PO Fair (50-74%) Minimum of two criteria No #1 Nutrition Diagnosis Increased nutrient needs ( specify in comment below) Comments: Protein Etiology nee for wound healing As Evidenced by Signs and Symptoms Diabetic foot ulcer Is patient on ventilator? No Is Patient Ambulatory and/or Out of Bed Yes REE-([place]-St. Jeor-ambulatory/OOB) [ 2893.319 NUTR.MSJOOB] Kcal/Kg value to use for calculation 18 Approximate Energy Requirements Using 2322 kcal/Kg Calculation Used for Recommendations Kcal/kg Additional Notes Protein: 111-133 g (1.25-1.5 g /kg IBW 89 kg) Fluid: 1 ml/kcal Nutrition Intervention Change Diet Order: Change to Cardiac/ Consistent CHO Add Supplement/Snack (indicate name/kcal Ensure HP Chocolate /protein ) Provides kCal: 360 Provides Protein (gm) 32 Teaching Recipient Patient Learning Readiness Good Teaching Methods Discussion,Handout Response to Teaching Verbalize understanding Education Handouts Provided Nausea and Vomiting Nutrition Therapy Barriers to Learning No Barriers RD phone number provided Yes Patient aware of follow up options Yes Goal #1 Change diet order Goal #2 Meet 75% of total energy and protein needs po Goal #3 ONS tolerance. Goal #4 Wound healing Anticipated Discharge Needs: Cardiac/Consitent CHO diet Follow-Up By: 06/24/20 Additional Comments F/U for diet change, intakes, N/V, and ONS tolerance
[2020-06-23] MEDS: ENOXAPARIN 40 MG/0.4 ML INJ SUB-Q SCH ×2 (10:41→21:05)
[2020-06-23] MEDS: ASCORBIC ACID 500 MG TAB PO SCH ×2 (10:41→21:04)
[2020-06-23] MEDS: ASPIRIN 325 MG TAB PO SCH (10:42)
[2020-06-23] MEDS: CHOLECALCIFEROL (VIT D3) 5,000 UNIT TAB PO SCH (10:42)
[2020-06-23] MEDS: carvediloL 25 MG TAB PO SCH ×2 (10:42→21:04)
[2020-06-23] MEDS: ZINC SULFATE 220 MG CAP PO SCH ×2 (10:42→21:04)
[2020-06-23] MEDS: DEXAMETHASONE 4 MG TAB PO SCH (10:43)
[2020-06-23] MEDS: CLOPIDOGREL 75 MG TAB PO SCH (10:43)
[2020-06-23] MEDS: ISOSORB DINIT/HYDRALAZINE 20-37.5MG TAB PO SCH ×2 (10:43→21:04)
[2020-06-23] MEDS: AZITHROMYCIN 250 MG TAB PO SCH (10:43)
[2020-06-23] MEDS: amLODIPine 10 MG TAB PO SCH (10:43)
[2020-06-23] MEDS: ACETAMINOPHEN 325 MG TAB PO PRN (12:53)
--- NOTE | 2020-06-23 13:05 | Progress Note ---
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 Currently on 3 L nasal cannula. #Diabetes: With hyperglycemia #Leukopenia: Likely secondary to COVID-19. Recs: -Steroids per pulmonary for 10 days -Remdesivir Day 5 of 5 -continue to wean oxygen and get home oxygen eval prior to discharge Bianca Santa MD, FACP [facility] O: [phone] F: [phone] Subjective Date of service: 06/23/20 Principal diagnosis: Ac hypoxemic resp failure; PUI COVID-19; PNA; Morbid obesity; H/O CVA; DMII Interval history: Afebrile. On 3 L nasal cannula. Objective - Exam Narrative Exam: Physical Exam (reviewed in chart to minimize risk of transmission) Constitutional: deferred Head, Ears, Nose: deferred Eyes: deferred Neck: deferred Oral: deferred Cardiovascular: deferred Respiratory: deferred GI: deferred Musculoskeletal: deferred Skin: deferred Hem/Lymphatic: deferred Psych: deferred Neurological: deferred - Constitutional Vitals: Vital Signs Temp Pulse Resp BP Pulse Ox 98.6 F 86 20 156/88 93 06/23/20 04:51 06/23/20 10:42 06/23/20 04:51 06/23/20 10:42 06/23/20 08:18 Temperature -Last 24 Hours Temperature 98.6 F Temperature 98.1 F Temperature 98.3 F - Labs CBC & Chem 7: 06/22/20 04:28 06/23/20 04:08 Labs: Abnormal lab results 06/22/20 06/22/20 06/22/20 Range/Units 11:05 15:43 21:47 BUN (9-20) mg/dL Glucose (75-100) mg/dL POC Glucose 236 H 302 H 245 H (70-105) mg/dL Albumin (3.9-5) g/dL 06/23/20 06/23/20 Range/Units 04:08 07:50 BUN 29 H (9-20) mg/dL Glucose 203 H (75-100) mg/dL POC Glucose 205 H (70-105) mg/dL Albumin 3.4 L (3.9-5) g/dL
--- NOTE | 2020-06-23 14:28 | Progress Note ---
Assessment and Plan Patient alert, awake and resting on room air. Patient suppose to be on 3 litres O2. O2 saturation 90%. Recommend to keep O2 all the time. Patient denies chest pain, shortness of breath or cough. Patient afebrile. No leukocytosis.Chest xray 06/18/20 reported Increased bilateral perihilar lower lobe opacities. Patient has history of CVA and left sided weakness. Patient has no history of smoking, alcohol or drug abuse. 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 Patient and has 4 children. Patients COVID 19 PCR is positive. Venous doppler studies reported superficial thrombus in left saphenous vein Patient is on REMDESIVIR, Dexamethasone, Zithromax, S/C Lovenox, Protonix and Albuterol inhaler. - Patient Problems (1) 2019 novel coronavirus disease (COVID-19) Current Visit: Yes Status: Acute Plan to address problem: Patient is on REMDESIVIR, Dexamethasone, Zithromax, S/C Lovenox, Protonix Albuterol inhaler. (2) Pneumonia Current Visit: Yes Status: Acute Qualifiers: Pneumonia type: due to unspecified organism Laterality: bilateral Lung location: lower lobe of lung Qualified Code(s): J18.9 - Pneumonia, unspecified organism Plan to address problem: Patient is on Zithromax. (3) ACS (acute coronary syndrome) Current Visit: No Status: Acute Plan to address problem: Management as per cardiology. (4) Elevated troponin Current Visit: Yes Status: Acute Plan to address problem: Management as per cardiology. (5) POOL (acute kidney injury) Current Visit: Yes Status: Acute (6) Accelerated hypertension Current Visit: No Status: Acute Plan to address problem: Management as per cardiology. (7) Acute superficial venous thrombosis of right lower extremity Current Visit: No Status: Acute Plan to address problem: Patient is on S/C Lovenox. Suggest to adjust the dose of S/C Lovenox to patients body weight. (8) CVA (cerebral vascular accident) Current Visit: No Status: Acute Plan to address problem: Management as per primary care and neurology. (9) GERD (gastroesophageal reflux disease) Current Visit: No Status: Acute Qualifiers: Esophagitis presence: with esophagitis Plan to address problem: Patient is on protonix. (10) Diabetes Current Visit: No Status: Chronic Qualifiers: Diabetes mellitus type: type 2 Plan to address problem: Management as per primary care. (11) HTN (hypertension) Current Visit: No Status: Chronic Qualifiers: Hypertension type: essential hypertension Qualified Code(s): I10 - Essential (primary) hypertension Plan to address problem: Management as per primary care. Subjective Date of service: 06/23/20 Principal diagnosis: Ac hypoxemic resp failure; PUI COVID-19; PNA; Morbid obesity; H/O CVA; DMII Interval history: Patient alert, awake and resting on room air. Patient suppose to be on 3 litres O2. O2 saturation 90%. Recommend to keep O2 all the time. Patient denies chest pain, shortness of breath or cough. Patient afebrile. No leukocytosis.Chest xray 06/18/20 reported Increased bilateral perihilar lower lobe opacities. Patient has history of CVA and left sided weakness. Patient has no history of smoking, alcohol or drug abuse. 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 Patient and has 4 children. Patients COVID 19 PCR is positive. Venous doppler studies reported superficial thrombus in left saphenous vein. Patient is on REMDESIVIR, Dexamethasone, Zithromax, S/C Lovenox, Protonix and Albuterol inhaler. Objective Vital Signs - 12hr 06/23/20 06/23/20 06/23/20 04:51 08:18 10:42 Temperature 98.6 F Pulse Rate 81 86 Respiratory 20 Rate Blood Pressure 136/69 156/88 O2 Sat by Pulse 93 93 Oximetry Constitutional: appears uncomfortable, other (middle aged obese male with milldy increased respiratory effort at rest) Eyes: non-icteric ENT: oropharynx moist, other (large neck circumference) Neck: supple, no lymphadenopathy, no JVD Effort: mildly labored Ascultation: Bilateral: diminished breath sounds, rhonchi Percussion: Bilateral: not dull Cardiovascular: regular rate and rhythm Gastrointestinal: normoactive bowel sounds, soft, non-tender, non-distended Extremities: no cyanosis, pulses normal, no ischemia or petechiae, other (Lefft sided lymphedema) Neurologic: pupils equal and round, other (left hemiparesis) Psychiatric: mood appropriate, affect normal CBC and BMP: 06/22/20 04:28 06/23/20 04:08 ABG, PT/INR, D-dimer: PT/INR, D-dimer D-Dimer 368.8 ng/mlDDU (0-234) H 06/18/20 10:37 Abnormal lab findings: Abnormal Labs 06/18/20 06/18/20 06/18/20 09:03 09:03 09:03 WBC Plt Count 130 L Lymph % (Auto) 10.4 L [place] % (Auto) 9.7 H Baso % (Auto) 2.2 H Lymph # (Auto) 0.5 L Seg Neutrophils % 77.7 H D-Dimer Sodium 132 L Carbon Dioxide 21 L BUN 27 H Creatinine 1.7 H Glucose 300 H POC Glucose Calcium 8.3 L Ferritin Lactate Dehydrogenase Troponin T 0.052 H C-Reactive Protein Albumin 3.3 L HDL Cholesterol 26 L TSH 0.260 L Coronavirus (PCR) 06/18/20 06/18/20 06/18/20 10:37 10:37 10:37 WBC Plt Count Lymph % (Auto) [place] % (Auto) Baso % (Auto) Lymph # (Auto) Seg Neutrophils % D-Dimer 368.8 H Sodium Carbon Dioxide BUN Creatinine Glucose 297 H POC Glucose Calcium Ferritin 324.3 H Lactate Dehydrogenase 348 H Troponin T C-Reactive Protein 6.10 H Albumin HDL Cholesterol TSH Coronavirus (PCR) 06/18/20 06/19/20 06/19/20 16:53 09:56 11:42 WBC Plt Count Lymph % (Auto) [place] % (Auto) Baso % (Auto) Lymph # (Auto) Seg Neutrophils % D-Dimer Sodium 135 L Carbon Dioxide 21 L BUN Creatinine Glucose 125 H POC Glucose 236 H 125 H Calcium 8.2 L Ferritin Lactate Dehydrogenase Troponin T C-Reactive Protein Albumin HDL Cholesterol TSH Coronavirus (PCR) 06/19/20 06/19/20 06/19/20 13:54 16:55 17:36 WBC Plt Count Lymph % (Auto) [place] % (Auto) Baso % (Auto) Lymph # (Auto) Seg Neutrophils % D-Dimer Sodium Carbon Dioxide BUN Creatinine Glucose POC Glucose 164 H 187 H Calcium Ferritin Lactate Dehydrogenase Troponin T 0.031 H D C-Reactive Protein Albumin HDL Cholesterol TSH Coronavirus (PCR) 06/19/20 06/19/20 06/20/20 22:31 Unknown 06:47 WBC 2.8 L Plt Count Lymph % (Auto) [place] % (Auto) Baso % (Auto) Lymph # (Auto) 0.6 L Seg Neutrophils % 72.5 H D-Dimer Sodium Carbon Dioxide BUN Creatinine Glucose POC Glucose 344 H Calcium Ferritin Lactate Dehydrogenase Troponin T C-Reactive Protein Albumin HDL Cholesterol TSH Coronavirus (PCR) Positive A 06/20/20 06/20/20 06/20/20 06:47 07:55 12:33 WBC Plt Count Lymph % (Auto) [place] % (Auto) Baso % (Auto) Lymph # (Auto) Seg Neutrophils % D-Dimer Sodium 134 L Carbon Dioxide BUN 26 H Creatinine 1.4 H Glucose 347 H POC Glucose 304 H 421 H Calcium Ferritin Lactate Dehydrogenase Troponin T C-Reactive Protein Albumin HDL Cholesterol TSH Coronavirus (PCR) 06/20/20 06/20/20 06/21/20 17:39 22:27 04:41 WBC Plt Count Lymph % (Auto) [place] % (Auto) Baso % (Auto) Lymph # (Auto) Seg Neutrophils % D-Dimer Sodium Carbon Dioxide BUN 44 H Creatinine 1.7 H Glucose 251 H POC Glucose 395 H 253 H Calcium Ferritin Lactate Dehydrogenase Troponin T C-Reactive Protein Albumin 3.4 L HDL Cholesterol TSH Coronavirus (PCR) 06/21/20 06/21/20 06/21/20 07:35 11:23 16:01 WBC Plt Count Lymph % (Auto) [place] % (Auto) Baso % (Auto) Lymph # (Auto) Seg Neutrophils % D-Dimer Sodium Carbon Dioxide BUN Creatinine Glucose POC Glucose 265 H 287 H 246 H Calcium Ferritin Lactate Dehydrogenase Troponin T C-Reactive Protein Albumin HDL Cholesterol TSH Coronavirus (PCR) 06/21/20 06/22/20 06/22/20 21:34 04:28 04:28 WBC Plt Count Lymph % (Auto) 9.9 L [place] % (Auto) 8.9 H Baso % (Auto) Lymph # (Auto) 0.7 L Seg Neutrophils % 80.7 H D-Dimer Sodium Carbon Dioxide BUN 39 H Creatinine Glucose 132 H POC Glucose 222 H Calcium Ferritin Lactate Dehydrogenase Troponin T C-Reactive Protein Albumin 3.2 L HDL Cholesterol TSH Coronavirus (PCR) 06/22/20 06/22/20 06/22/20 07:35 11:05 15:43 WBC Plt Count Lymph % (Auto) [place] % (Auto) Baso % (Auto) Lymph # (Auto) Seg Neutrophils % D-Dimer Sodium Carbon Dioxide BUN Creatinine Glucose POC Glucose 116 H 236 H 302 H Calcium Ferritin Lactate Dehydrogenase Troponin T C-Reactive Protein Albumin HDL Cholesterol TSH Coronavirus (PCR) 06/22/20 06/23/20 06/23/20 21:47 04:08 07:50 WBC Plt Count Lymph % (Auto) [place] % (Auto) Baso % (Auto) Lymph # (Auto) Seg Neutrophils % D-Dimer Sodium Carbon Dioxide BUN 29 H Creatinine Glucose 203 H POC Glucose 245 H 205 H Calcium Ferritin Lactate Dehydrogenase Troponin T C-Reactive Protein Albumin 3.4 L HDL Cholesterol TSH Coronavirus (PCR) Chest x-ray: report reviewed, image reviewed Additional Studies: CHEST 1 VIEW 06/18/2020 9:13 AM INDICATION / CLINICAL INFORMATION: cough. COMPARISON: 01/12/18. FINDINGS: SUPPORT DEVICES: None. HEART / MEDIASTINUM: No significant abnormality. LUNGS / PLEURA: Increased perihilar lower lobe opacities. No pneumothorax. ADDITIONAL FINDINGS: No significant additional findings. IMPRESSION: 1. Increased bilateral perihilar lower lobe opacities. Allied health notes reviewed: nursing
[2020-06-23] MEDS: REMDESIVIR 100 MG in SODIUM CHLORIDE 0.9% 250ML 250 ML IV SCH (21:03)
[2020-06-24 07:25] VITALS: BP 157/83
[2020-06-24] MEDS: cloNIDine 0.1 MG TAB PO SCH ×3 (08:07→15:11)
--- NOTE | 2020-06-24 09:05 | Discharge Summary ---
Providers - Providers Date of Admission: 06/19/20 08:56 Attending physician: RENEE YOO MD 06/18/20 12:28 Consult to Wound/ET Nurse [CONS] Routine Reason For Exam: left leg 06/18/20 19:22 Physical Therapy Evaluation and Treat [CONS] Routine Comment: Reason For Exam: pt requesting home health PT need recommendations 06/18/20 22:34 Consult to Physician [CONS] Routine Comment: Consulting Provider: MAIA JIMENEZ Physician Instructions: Reason For Exam: Respiratory Distress 06/19/20 12:12 Occupational Therapy Evaluate and Treat [CONS] Stat Comment: Reason For Exam: eval and treat 06/19/20 15:43 Consult to Physician [CONS] Routine Comment: Consulting Provider: GAIL SILVA Physician Instructions: Reason For Exam: COVID +ve Primary care physician: GASOLINE SERVICE ATTENDANT Hospitalization Reason for admission: COVID-19 Condition: Stable Hospital course: This is a 54-year-old -Mexican male presents to the emergency department from home with complaint of a 3 to 4-day history of chills, generalized fatigue/weakness, a mixed dry and productive cough, nausea with vomiting, decreased appetite. The patient's , who works at [employer], says that she was recently sick with similar symptoms but she has improved while the patient has not. Eating food increases his nausea and makes him vomit. However he has been able to drink green tea and water to stay hydrated. No obvious fever but the patient has felt warm as if he has a fever. He has been using [employer] for his cough. No recent travel. He has a past medical history of hypertension, CVA with residual left-sided weakness, insulin-dependent diabetes, and coronary artery disease with cardiac stents. His primary care physician is Dr. Yee and his chef head is Dr Farmer. He denies any tobacco or illicit drug use. Covid 19 induced pneumonia -Chest x-ray showed increased perihilar and lower lobe opacities -Patient placed on Covid protocol, continue to follow inflammatory markers -Follow calcitonin level, empiric antibiotics for now Acute hypoxic respiratory failure secondary to Covid pneumonia Severe sepsis secondary to Covid pneumonia Hypertension, resume home meds, monitor BP History of CVA, continue aspirin Plavix and statin COPD with mild exacerbation -Continue empiric steroid, empiric antibiotics and nebulizer breathing treatments GERD, continue home regimen of PPI Diabetes mellitus type 2 -Monitor blood glucose QA [facility] and start home insulin regimen with SSI Coronary artery disease -Continue routine home cardiac medications POOL, likely vasomotor nephropathy - monitor BMP, avoid nephrotoxins NSTEMI type II -Likely due to POOL, and underlying pneumonia -Follow with serial troponin, order 2D echocardiogram Morbid obesity, weight reduction diet and exercise counseling when clinically more stable as outpatient Chest x-ray: IMPRESSION: 1. Increased bilateral perihilar lower lobe opacities. Doppler bilateral lower extremity:IMPRESSION: 1. No sonographic evidence for DVT in either lower extremity. 2. Superficial thrombus in the left saphenous vein. 06/20: In addition to adjustments made above with diagnosis will continue management per infectious disease recommendation and pulmonary recommendation. Incentive spirometer added in addition to vitamins. Recommended to the patient for need to prone if able to. He verbalized understanding. Wean oxygen as tolerated patient currently on 55% high flow. Continue remdesivir monitor renal function closely. We will hold off on diuresis at this time due to POOL. With diagnosis also advised patient on need for family members to get tested. 06/21/20 Patient is seen and examined. Patient denied any shortness of breath, no chest pain. Complained of leg edema. No other complaint. Patient is getting Decadron 6 mg IV daily and remdesivir 100 mg IV daily for Covid. Day . Continue current management. ID and pulmonary follow-up. Out of bed to chair. 06/22/20 Patient is seen and examined. Patient denied any shortness of breath, Patient complained of coughing yellowish phlegm. complained of leg edema. Zithromax to 50 mg p.o. daily. Patient is getting Decadron 6 mg IV daily and remdesivir 100 mg IV daily for Covid. Day of 5. Continue current management. ID and pulmonary follow-up. Out of bed to chair. BMP in the morning 06/23: Patient seen and examined this morning still with mild shortness of breath but has improved down to 3 L nasal cannula.. Will obtain home O2 evaluation today. Today will be day 5 5 of remdesivir. Anticipate discharge in 24 hours 3/: Patient this morning doing very well yesterday oxygen saturation was noted to be 94% on room air is noted to be 96% on room air today he denies any worsening shortness of breath or shortness of breath he believes his back to his baseline. I did have extensive discussion with him about how to protect his family he verbalized understanding is clinically stable for discharge at this time. He will complete steroid therapy outpatient. He is to continue to monitor his blood sugar closely. And weight loss was recommended. Disposition: DC-01 TO HOME OR SELFCARE Time spent for discharge: 35-minute Core Measure Documentation - Palliative Care Palliative Care/ Comfort Measures: Not Applicable - Core Measures Any of the following diagnoses?: none Exam - Physical Exam Narrative exam: VITAL SIGNS: Reviewed. GENERAL: The patient appears normally developed, still with mild shortness of breath, sitting up on the bed obese vital signs as documented. HEAD: No signs of head trauma. EYES: Pupils are equal. Extraocular motions intact. EARS: Hearing grossly intact. MOUTH: Oropharynx is normal. NECK: No adenopathy, no JVD. CHEST: Chest with diminished breath sounds bilaterally. No wheezes, rales, or rhonchi. CARDIAC: Regular rate and rhythm. S1 and S2, without murmurs, gallops, or rubs. VASCULAR: No Edema. Peripheral pulses normal and equal in all extremities. ABDOMEN: Soft, non tender and non distended. No rebound or guarding, and no masses palpated. Bowel Sounds normal. MUSCULOSKELETAL: Good range of motion of all major joints. Extremities without clubbing, cyanosis or edema. NEUROLOGIC EXAM: Alert and oriented x 3 No focal sensory or strength deficits. Speech normal. Follows commands. PSYCHIATRIC: Mood normal. SKIN: detail exam as documented in skin assessment - Constitutional Vitals: Temp Pulse Resp BP Pulse Ox 99.0 F 83 20 157/83 96 06/24/20 07:00 06/24/20 07:00 06/24/20 07:00 06/24/20 07:00 06/24/20 08:33 Plan Activity: advance as tolerated, fall precautions Diet: diabetic Special Instructions: record daily weights, record daily BP diary Additional Instructions: Continue to wear your mask for at least 14 days of social distancing to ensure family safe. Follow up with: MAXWELL NJ MD [Primary Care Provider] - 7 Days MERON COOPER MD [Staff Physician] - 7 Days Prescriptions: Dexamethasone 6 mg PO DAILY #5 tab Pantoprazole [Protonix TAB] 40 mg PO QDAC #30 tablet Ascorbic Acid [Vitamin C] 1,000 mg PO BID #60 tablet Cholecalciferol (Vitamin D3) [Vitamin D3] 5,000 unit PO DAILY #30 tablet Zinc Sulfate 220 mg PO BID #60 capsule
[2020-06-24] MEDS: INSULIN LISPRO 100 UNIT/ML SUB-Q SCH ×2 (10:04→13:04)
[2020-06-24] MEDS: ENOXAPARIN 40 MG/0.4 ML INJ SUB-Q SCH (10:06)
[2020-06-24] MEDS: ASPIRIN 325 MG TAB PO SCH ×2 (10:07→15:59)
[2020-06-24] MEDS: amLODIPine 10 MG TAB PO SCH ×2 (10:07→15:08)
[2020-06-24] MEDS: DEXAMETHASONE 4 MG TAB PO SCH ×2 (10:07→15:14)
[2020-06-24] MEDS: ISOSORB DINIT/HYDRALAZINE 20-37.5MG TAB PO SCH ×2 (10:07→10:16)
[2020-06-24] MEDS: ASCORBIC ACID 500 MG TAB PO SCH ×2 (10:07→15:04)
[2020-06-24] MEDS: carvediloL 25 MG TAB PO SCH (10:08)
[2020-06-24] MEDS: AZITHROMYCIN 250 MG TAB PO SCH (10:08)
[2020-06-24] MEDS: CHOLECALCIFEROL (VIT D3) 5,000 UNIT TAB PO SCH (10:08)
[2020-06-24] MEDS: CLOPIDOGREL 75 MG TAB PO SCH (10:08)
[2020-06-24] MEDS: INSULIN NPH/REGULAR 70/30 INJ SUB-Q SCH (10:11)
[2020-06-24] MEDS: ZINC SULFATE 220 MG CAP PO SCH ×2 (10:17→15:24)
[2020-06-24] MEDS: PANTOPRAZOLE 40 MG TAB PO SCH (10:17)
--- NOTE | 2020-06-24 11:57 | Progress Note ---
Assessment and Plan Patient sleeping on room air. O2 saturation 91%. Easily arousable. Patient denies chest pain, shortness of breath or cough. Patient afebrile. No leukocytosis.Chest xray 06/18/20 reported Increased bilateral perihilar lower lobe opacities. Patient has history of CVA and left sided weakness. Patient has no history of smoking, alcohol or drug abuse. 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 Patient and has 4 children. Patients COVID 19 PCR is positive. Venous doppler studies reported superficial thrombus in left saphenous vein. Patient is on REMDESIVIR, Dexamethasone, Zithromax, S/C Lovenox, Protonix and Albuterol inhaler. - Patient Problems (1) 2019 novel coronavirus disease (COVID-19) Status: Acute Plan to address problem: Patient is on REMDESIVIR, Dexamethasone, Zithromax, S/C Lovenox, Protonix Albuterol inhaler. (2) Pneumonia Status: Acute Qualifiers: Pneumonia type: due to unspecified organism Laterality: bilateral Lung location: lower lobe of lung Qualified Code(s): J18.9 - Pneumonia, unspecified organism Plan to address problem: Patient is on Zithromax. (3) ACS (acute coronary syndrome) Status: Acute Plan to address problem: Management as per cardiology. (4) Elevated troponin Status: Acute Plan to address problem: Management as per cardiology. (5) POOL (acute kidney injury) Status: Acute Plan to address problem: Management as per nephrology. (6) Accelerated hypertension Status: Acute Plan to address problem: Management as per cardiology. (7) Acute superficial venous thrombosis of right lower extremity Status: Acute Plan to address problem: Patient is on S/C Lovenox. Suggest to adjust the dose of S/C Lovenox to patients body weight. (8) CVA (cerebral vascular accident) Status: Acute Plan to address problem: Management as per primary care and neurology. (9) GERD (gastroesophageal reflux disease) Status: Acute Qualifiers: Esophagitis presence: with esophagitis Plan to address problem: Patient is on protonix. (10) Diabetes Status: Chronic Qualifiers: Diabetes mellitus type: type 2 Plan to address problem: Management as per primary care. (11) HTN (hypertension) Status: Chronic Qualifiers: Hypertension type: essential hypertension Qualified Code(s): I10 - Essential (primary) hypertension Plan to address problem: Management as per primary care. Subjective Date of service: 06/24/20 Principal diagnosis: Ac hypoxemic resp failure; PUI COVID-19; PNA; Morbid obesity; H/O CVA; DMII Interval history: Patient sleeping on room air. O2 saturation 91%. Easily arousable. Patient jeremie es chest pain, shortness of breath or cough. Patient afebrile. No leukocytosis.Chest xray 06/18/20 reported Increased bilateral perihilar lower lobe opacities. Patient has history of CVA and left sided weakness. Patient has no history of smoking, alcohol or drug abuse. 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 Patient and has 4 children. Patients COVID 19 PCR is positive. Venous doppler studies reported superficial thrombus in left saphenous vein. Patient is on REMDESIVIR, Dexamethasone, Zithromax, S/C Lovenox, Protonix and Albuterol inhaler. Objective Vital Signs - 12hr 06/24/20 06/24/20 06/24/20 00:15 07:00 08:33 Temperature 97.4 F L 99.0 F Pulse Rate 85 83 Respiratory 20 20 Rate Blood Pressure 145/80 157/83 O2 Sat by Pulse 91 91 96 Oximetry 06/24/20 06/24/20 06/24/20 10:07 10:09 10:16 Temperature Pulse Rate 83 83 83 Respiratory Rate Blood Pressure 157/83 157/83 157/83 O2 Sat by Pulse Oximetry Constitutional: no acute distress, asleep, other (middle aged obese male with milldy increased respiratory effort at rest) Eyes: non-icteric ENT: oropharynx moist, other (large neck circumference) Neck: supple, no lymphadenopathy, no JVD Effort: mildly labored Ascultation: Bilateral: diminished breath sounds, rhonchi Percussion: Bilateral: not dull Cardiovascular: regular rate and rhythm Gastrointestinal: normoactive bowel sounds, soft, non-tender, non-distended Extremities: no cyanosis, pulses normal, no ischemia or petechiae, other (Lefft sided lymphedema) Neurologic: pupils equal and round, other (left hemiparesis) Psychiatric: mood appropriate, affect normal CBC and BMP: 06/22/20 04:28 06/23/20 04:08 ABG, PT/INR, D-dimer: PT/INR, D-dimer D-Dimer 368.8 ng/mlDDU (0-234) H 06/18/20 10:37 Abnormal lab findings: Abnormal Labs 06/18/20 06/18/20 06/18/20 09:03 09:03 09:03 WBC Plt Count 130 L Lymph % (Auto) 10.4 L [place] % (Auto) 9.7 H Baso % (Auto) 2.2 H Lymph # (Auto) 0.5 L Seg Neutrophils % 77.7 H D-Dimer Sodium 132 L Carbon Dioxide 21 L BUN 27 H Creatinine 1.7 H Glucose 300 H POC Glucose Calcium 8.3 L Ferritin Lactate Dehydrogenase Troponin T 0.052 H C-Reactive Protein Albumin 3.3 L HDL Cholesterol 26 L TSH 0.260 L Coronavirus (PCR) 06/18/20 06/18/20 06/18/20 10:37 10:37 10:37 WBC Plt Count Lymph % (Auto) [place] % (Auto) Baso % (Auto) Lymph # (Auto) Seg Neutrophils % D-Dimer 368.8 H Sodium Carbon Dioxide BUN Creatinine Glucose 297 H POC Glucose Calcium Ferritin 324.3 H Lactate Dehydrogenase 348 H Troponin T C-Reactive Protein 6.10 H Albumin HDL Cholesterol TSH Coronavirus (PCR) 06/18/20 06/19/20 06/19/20 16:53 09:56 11:42 WBC Plt Count Lymph % (Auto) [place] % (Auto) Baso % (Auto) Lymph # (Auto) Seg Neutrophils % D-Dimer Sodium 135 L Carbon Dioxide 21 L BUN Creatinine Glucose 125 H POC Glucose 236 H 125 H Calcium 8.2 L Ferritin Lactate Dehydrogenase Troponin T C-Reactive Protein Albumin HDL Cholesterol TSH Coronavirus (PCR) 06/19/20 06/19/20 06/19/20 13:54 16:55 17:36 WBC Plt Count Lymph % (Auto) [place] % (Auto) Baso % (Auto) Lymph # (Auto) Seg Neutrophils % D-Dimer Sodium Carbon Dioxide BUN Creatinine Glucose POC Glucose 164 H 187 H Calcium Ferritin Lactate Dehydrogenase Troponin T 0.031 H D C-Reactive Protein Albumin HDL Cholesterol TSH Coronavirus (PCR) 06/19/20 06/19/20 06/20/20 22:31 Unknown 06:47 WBC 2.8 L Plt Count Lymph % (Auto) [place] % (Auto) Baso % (Auto) Lymph # (Auto) 0.6 L Seg Neutrophils % 72.5 H D-Dimer Sodium Carbon Dioxide BUN Creatinine Glucose POC Glucose 344 H Calcium Ferritin Lactate Dehydrogenase Troponin T C-Reactive Protein Albumin HDL Cholesterol TSH Coronavirus (PCR) Positive A 06/20/20 06/20/20 06/20/20 06:47 07:55 12:33 WBC Plt Count Lymph % (Auto) [place] % (Auto) Baso % (Auto) Lymph # (Auto) Seg Neutrophils % D-Dimer Sodium 134 L Carbon Dioxide BUN 26 H Creatinine 1.4 H Glucose 347 H POC Glucose 304 H 421 H Calcium Ferritin Lactate Dehydrogenase Troponin T C-Reactive Protein Albumin HDL Cholesterol TSH Coronavirus (PCR) 06/20/20 06/20/20 06/21/20 17:39 22:27 04:41 WBC Plt Count Lymph % (Auto) [place] % (Auto) Baso % (Auto) Lymph # (Auto) Seg Neutrophils % D-Dimer Sodium Carbon Dioxide BUN 44 H Creatinine 1.7 H Glucose 251 H POC Glucose 395 H 253 H Calcium Ferritin Lactate Dehydrogenase Troponin T C-Reactive Protein Albumin 3.4 L HDL Cholesterol TSH Coronavirus (PCR) 06/21/20 06/21/20 06/21/20 07:35 11:23 16:01 WBC Plt Count Lymph % (Auto) [place] % (Auto) Baso % (Auto) Lymph # (Auto) Seg Neutrophils % D-Dimer Sodium Carbon Dioxide BUN Creatinine Glucose POC Glucose 265 H 287 H 246 H Calcium Ferritin Lactate Dehydrogenase Troponin T C-Reactive Protein Albumin HDL Cholesterol TSH Coronavirus (PCR) 06/21/20 06/22/20 06/22/20 21:34 04:28 04:28 WBC Plt Count Lymph % (Auto) 9.9 L [place] % (Auto) 8.9 H Baso % (Auto) Lymph # (Auto) 0.7 L Seg Neutrophils % 80.7 H D-Dimer Sodium Carbon Dioxide BUN 39 H Creatinine Glucose 132 H POC Glucose 222 H Calcium Ferritin Lactate Dehydrogenase Troponin T C-Reactive Protein Albumin 3.2 L HDL Cholesterol TSH Coronavirus (PCR) 06/22/20 06/22/20 06/22/20 07:35 11:05 15:43 WBC Plt Count Lymph % (Auto) [place] % (Auto) Baso % (Auto) Lymph # (Auto) Seg Neutrophils % D-Dimer Sodium Carbon Dioxide BUN Creatinine Glucose POC Glucose 116 H 236 H 302 H Calcium Ferritin Lactate Dehydrogenase Troponin T C-Reactive Protein Albumin HDL Cholesterol TSH Coronavirus (PCR) 06/22/20 06/23/20 06/23/20 21:47 04:08 07:50 WBC Plt Count Lymph % (Auto) [place] % (Auto) Baso % (Auto) Lymph # (Auto) Seg Neutrophils % D-Dimer Sodium Carbon Dioxide BUN 29 H Creatinine Glucose 203 H POC Glucose 245 H 205 H Calcium Ferritin Lactate Dehydrogenase Troponin T C-Reactive Protein Albumin 3.4 L HDL Cholesterol TSH Coronavirus (PCR) 06/23/20 06/23/20 06/23/20 12:17 15:42 22:13 WBC Plt Count Lymph % (Auto) [place] % (Auto) Baso % (Auto) Lymph # (Auto) Seg Neutrophils % D-Dimer Sodium Carbon Dioxide BUN Creatinine Glucose POC Glucose 237 H 241 H 279 H Calcium Ferritin Lactate Dehydrogenase Troponin T C-Reactive Protein Albumin HDL Cholesterol TSH Coronavirus (PCR) 06/24/20 08:01 WBC Plt Count Lymph % (Auto) [place] % (Auto) Baso % (Auto) Lymph # (Auto) Seg Neutrophils % D-Dimer Sodium Carbon Dioxide BUN Creatinine Glucose POC Glucose 228 H Calcium Ferritin Lactate Dehydrogenase Troponin T C-Reactive Protein Albumin HDL Cholesterol TSH Coronavirus (PCR) Allied health notes reviewed: nursing
[2020-06-24] MEDS ORDERED: ONDANSETRON 4 MG/2 ML INJ IV ONE ×3 (12:05→12:10)
[2020-06-24] MEDS ORDERED: ONDANSETRON 4 MG/2 ML INJ IV NR (12:10)
[2020-06-24] MEDS ORDERED: SODIUM CHLORIDE 0.9% 250ML 250 ML IV NR (12:15)
[2020-06-24] MEDS ORDERED: SODIUM CHLORIDE 0.9% 250ML 250 ML IV ONE (12:15)
--- NOTE | 2020-06-24 14:05 | Progress Note ---
Assessment and Plan Cultures: Blood culture no growth so far SARS-CoV-2 PCR positive A/P: 54-year-old man past medical history hypertension, [place], diabetes, CVA admitted with COVID-19 #Severe COVID-19 pneumonia: Patient presented with a week of symptoms, chest x- ray with diffuse bilateral infiltrates.No evidence of DVT #Acute hypoxemic respiratory failure: Likely secondary to COVID-19 infection. Improved. #Diabetes: With hyperglycemia #Leukopenia: Likely secondary to COVID-19. Improved. Recs: -weaned to room air, cleared ambulatory sat eval -completed Remdesivir. OK for discharge -complete steroid course Bianca Santa MD, FACP [facility] ([facility]) O: [phone] F: [phone] Subjective Date of service: 06/24/20 Principal diagnosis: Ac hypoxemic resp failure; PUI COVID-19; PNA; Morbid obesity; H/O CVA; DMII Interval history: Afebrile. Weaned to room air. Cleared ambulatory sats. Objective - Exam Narrative Exam: Physical Exam (reviewed in chart to minimize risk of transmission) Constitutional: deferred Head, Ears, Nose: deferred Eyes: deferred Neck: deferred Oral: deferred Cardiovascular: deferred Respiratory: deferred GI: deferred Musculoskeletal: deferred Skin: deferred Hem/Lymphatic: deferred Psych: deferred Neurological: deferred - Constitutional Vitals: Vital Signs Temp Pulse Resp BP Pulse Ox 99.0 F 83 20 157/83 96 06/24/20 07:00 06/24/20 10:07 06/24/20 07:00 06/24/20 10:07 06/24/20 08:33 Temperature -Last 24 Hours Temperature 99.0 F Temperature 97.4 F Temperature 98.6 F - Labs CBC & Chem 7: 06/22/20 04:28 06/23/20 04:08 Labs: Abnormal lab results 06/23/20 06/23/20 06/23/20 Range/Units 12:17 15:42 22:13 POC Glucose 237 H 241 H 279 H (70-105) mg/dL 06/24/20 Range/Units 08:01 POC Glucose 228 H (70-105) mg/dL
== END 2020-06-24 17:00 | disposition home health service (06) | DRG 871 ==
LOC: ED 07:20 → 3A 10:30 → OBSVTOIN 06-19 08:56
PROVIDERS: ADMIT Internal Medicine; ATTEND Internal Medicine
PROC: 5A0935A Assistance with Respiratory Ventilation, Less than 24 Consecutive Hours, High Flow/Velocity Cannula (ICD-10-PCS; principal; 2020-06-19)
PROC: XW033E5 Introduction of Remdesivir Anti-infective into Peripheral Vein, Percutaneous Approach, New Technology Group 5 (ICD-10-PCS; 2020-06-19)
PROC: 5A0935A Assistance with Respiratory Ventilation, Less than 24 Consecutive Hours, High Flow/Velocity Cannula (ICD-10-PCS; 2020-06-20)
PROC: 5A0935A Assistance with Respiratory Ventilation, Less than 24 Consecutive Hours, High Flow/Velocity Cannula (ICD-10-PCS; 2020-06-21)
PROC: 5A0935A Assistance with Respiratory Ventilation, Less than 24 Consecutive Hours, High Flow/Velocity Cannula (ICD-10-PCS; 2020-06-22)
DX: A41.89 Other specified sepsis (principal); U07.1 COVID-19; N17.0 Acute kidney failure with tubular necrosis; I21.A1 Myocardial infarction type 2; J96.01 Acute respiratory failure with hypoxia; J12.82 Pneumonia due to coronavirus disease 2019; J44.1 Chronic obstructive pulmonary disease with (acute) exacerbation; J44.0 Chronic obstructive pulmonary disease with (acute) lower respiratory infection; I82.811 Embolism and thrombosis of superficial veins of right lower extremity; R65.20 Severe sepsis without septic shock; I25.10 Atherosclerotic heart disease of native coronary artery without angina pectoris; I10 Essential (primary) hypertension; E66.01 Morbid (severe) obesity due to excess calories; D72.819 Decreased white blood cell count, unspecified; E11.9 Type 2 diabetes mellitus without complications; K21.9 Gastro-esophageal reflux disease without esophagitis; Z95.818 Presence of other cardiac implants and grafts; Z79.899 Other long term (current) drug therapy; Z79.891 Long term (current) use of opiate analgesic; Z79.01 Long term (current) use of anticoagulants; Z86.73 Personal history of transient ischemic attack (TIA), and cerebral infarction without residual deficits; Z86.79 Personal history of other diseases of the circulatory system; Z88.8 Allergy status to other drugs, medicaments and biological substances; Z91.013 Allergy to seafood; B97.89 Other viral agents as the cause of diseases classified elsewhere
CPT/HCPCS: 36415; 71045; 80048; 80053; 80061; 82728; 82947; 82962; 83615; 83690; 84145; 84439; 84443; 84484; 85025; 85379; 86140; 87040; 93005; 93970; 94640; 94644; 94760; 96374; 96375; 96376; G0378; J0456; J0696; J1100; J1650; J1815; J1940; J2405; J2930; J7030; J7040; J7050; J8540; U0003